=== PATIENT | female | born 1955 | race Caucasian/White ===

== ENCOUNTER → 2020-03-27 16:10 | Outpatient (BNVA) | payer OTHER, SELFPAY | PROVIDERS: PCP Internal Medicine; Visit Provider Surgery | DX: Z76.89 Persons encountering health services in other specified circumstances (principal) ==

== ENCOUNTER 2020-04-16 09:32 | Outpatient (REF) | payer OTHER, SELFPAY ==
[2020-04-16 10:11] LABS: COVID-19 Test Negative (Negative)
== END 2020-04-16 09:33 | disposition home or self-care (01) ==
LOC: HO.EMPCOV 09:32
PROVIDERS: Visit Provider Internal Medicine
DX: Z20.828 Contact with and (suspected) exposure to other viral communicable diseases (principal)
CPT/HCPCS: 87635; C9803

== ENCOUNTER 2020-06-11 11:11 | Outpatient (REF) | payer OTHER, SELFPAY ==
[2020-06-11 11:30] LABS: COVID-19 Test Negative (Negative); IDNOW Serial# 55D5AD1C
== END 2020-06-11 11:12 | disposition home or self-care (01) ==
LOC: HO.EMPCOV 11:11
PROVIDERS: Visit Provider Internal Medicine
DX: Z20.822 Contact with and (suspected) exposure to COVID-19 (principal)
CPT/HCPCS: 36415; 87635; C9803

== ENCOUNTER 2020-06-18 08:37 | Outpatient (REF) | payer OTHER, SELFPAY ==
[2020-06-18 09:04] LABS: COVID-19 Test Negative (Negative)
== END 2020-06-18 08:38 | disposition home or self-care (01) ==
LOC: HO.EMPCOV 08:37
PROVIDERS: Visit Provider Internal Medicine
DX: Z20.822 Contact with and (suspected) exposure to COVID-19 (principal)
CPT/HCPCS: 36415; 87635; C9803

== ENCOUNTER 2020-09-04 12:31 | Outpatient (REF) | payer OTHER, SELFPAY ==
--- NOTE | ~2020-09-04 | XR_ITS ---
EXAMINATION: XR CHEST CLINICAL INFORMATION: Fatigue. Tobacco use. COMPARISON: None TECHNIQUE: 2 views of the chest were obtained. FINDINGS: Hyperexpanded lungs. No consolidation, edema, or effusion. No pneumothorax. The cardiomediastinal silhouette is normal in size with a calcified aorta. Left axillary surgical clips. No acute osseous abnormality. XR/XR chest 2V IMPRESSION: Hyperexpanded, clear lungs.
--- NOTE | ~2020-09-04 | XR_ITS ---
EXAMINATION: XR SINUSES CLINICAL INFORMATION: Fatigue. Sinus headache. COMPARISON: None TECHNIQUE: 4 views of the sinuses were obtained. FINDINGS: Paranasal sinuses are well aerated and clear. No opacification or air-fluid level to suggest sinusitis is seen. Bony structures are unremarkable. XR/XR sinus min 3V IMPRESSION: Clear paranasal sinuses.
[2020-09-04 13:48] LABS: MANUAL DIFF FLAG NO
[2020-09-04 13:55] LABS: Basophils Absolute Auto 0.1 X10*3/uL (0.0-0.2); Basophils Percent Auto 0.6 % (0-2); Eosinophils Absolute Auto 0.3 X10*3/uL (0.0-0.4); Eosinophils Percent Auto 3.2 % (0-4); Hematocrit 45.2 % (37-47); Hemoglobin 14.7 g/dl (12.0-16.0); Imm Gran Abs Auto 0.05 X10*3/uL (0.00-0.03); Imm Gran Pct Auto 0.6 % (0.0-0.4); Lymphocytes Absolute Auto 2.1 X10*3/uL (1.2-4.9); Lymphocytes Percent Auto 24.8 % (20-40); Mean Corpuscular HGB Conc 32.5 g/dl (31.0-35.0); Mean Corpuscular Hemoglobin 32.7 pg (27.0-33.0); Mean Corpuscular Volume 100.4 fL (80-98); Mean Platelet Volume 10.2 fL (9.4-12.3); Monocytes Absolute Auto 0.7 X10*3/uL (0.1-1.2); Monocytes Percent Auto 8.8 % (2-11); Neutrophils Absolute Auto 5.2 X10*3/uL (2.0-8.3); Platelet Count 306 X10*3/uL (160-400); Red Cell Distribution Width 12.5 % (11.0-16.0); White Blood Count 8.3 X10*3/uL (4.8-10.8)
[2020-09-04 14:16] LABS: Alanine Aminotransferase 17 U/L (0-31); Albumin Level 4.2 g/dL (3.5-5.0); Alkaline Phosphatase 79 U/L (39-117); Anion Gap 14 (12-20); Aspartate Amino Transferase 16 U/L (5-31); Bilirubin Total 0.4 mg/dL (0.0-1.0); Blood Urea Nitrogen 13 mg/dL (9-16); C Reactive Protein 0.23 mg/dL (< or = 0.50); Calcium 9.9 mg/dL (8.4-10.2); Carbon Dioxide 29 mmol/L (22-29); Chloride 102 mmol/L (96-108); Estimated Glomerular Filt Rate > 60; Glucose Random 115 mg/dL (60-115); Sodium 141 mmol/L (135-145); Total Protein 6.9 g/dL (6.5-8.0)
[2020-09-04 14:35] LABS: Thyroid Stimulating Hormone 0.74 uIU/mL (0.32-4.0)
[2020-09-04 14:46] LABS: Vitamin B12 428 pg/mL (200-900)
== END 2020-09-04 12:32 | disposition home or self-care (01) ==
LOC: HO.XRAY 12:31
PROVIDERS: PCP Internal Medicine; Visit Provider Internal Medicine
DX: R53.83 Other fatigue (principal); G44.89 Other headache syndrome; Z72.0 Tobacco use
CPT/HCPCS: 36415; 70220; 71046; 80053; 82607; 84443; 85025; 86140

== ENCOUNTER 2020-09-12 15:25 | Outpatient (REF) | payer OTHER, SELFPAY ==
[2020-09-12 16:00] LABS: Glucose Urine UA NEG (NEG); Leukocyte Esterase Urine NEG (NEG); Nitrite Urine NEG (NEG); Specific Gravity - Urine 1.025 (1.005-1.025); Urine Blood NEG (NEG); Urine Ketones 5 MG/DL (NEG); Urine Protein TRACE MG/DL (NEG-TRACE)
[2020-09-12 16:02] LABS: Appearance Urine CLEAR; Color Urine YELLOW
== END 2020-09-12 15:26 | disposition home or self-care (01) ==
LOC: HO.LAB 15:25
PROVIDERS: PCP Internal Medicine; Visit Provider Internal Medicine
DX: R30.0 Dysuria (principal)
CPT/HCPCS: 81003; 87086

== ENCOUNTER 2020-10-01 11:27 | Outpatient (REF) | payer OTHER, SELFPAY ==
--- NOTE | ~2020-10-01 | CT_ITS ---
EXAMINATION: CT HEAD WITHOUT CONTRAST CLINICAL INFORMATION: Mental status change, dizziness and fatigue COMPARISON: None TECHNIQUE: Contiguous axial imaging was performed from the skull base to vertex without intravenous administration of contrast. This CT examination was performed using dose optimization techniques as appropriate, variously including the following: *Automated exposure control *Adjustment of mA and/or kV according to patient size (this includes techniques or standardized protocols for targeted exams where dose is matched to indication/reason for exam; i.e. extremities or head) *Use of iterative reconstruction technique DLP: 7-1 mGy-cm FINDINGS: There is no evidence of acute intracranial hemorrhage or territorial infarction. No abnormal mass effect or midline shift is seen. Virk to white matter differentiation is well preserved. No extra-axial fluid collections are identified. The ventricles are normal in size. There is no abnormal attenuation within the brain parenchyma. The osseous structures and soft tissues are normal. The mastoid air cells and visualized portions of the paranasal sinuses are well aerated. CT/CT head/brain wo con IMPRESSION: Unremarkable exam.
== END 2020-10-01 11:28 | disposition home or self-care (01) ==
LOC: HO.CT 11:27
PROVIDERS: Visit Provider Internal Medicine
DX: R53.83 Other fatigue (principal); R42 Dizziness and giddiness
CPT/HCPCS: 70450

== ENCOUNTER 2020-10-08 08:15 | Outpatient (REF) | payer OTHER, SELFPAY ==
[2020-10-08 10:18] LABS: MANUAL DIFF FLAG NO
[2020-10-08 10:40] LABS: Basophils Percent Auto 0.4 % (0-2); Eosinophils Absolute Auto 0.1 X10*3/uL (0.0-0.4); Eosinophils Percent Auto 1.1 % (0-4); Hematocrit 46.1 % (37-47); Hemoglobin 14.9 g/dl (12.0-16.0); Imm Gran Abs Auto 0.07 X10*3/uL (0.00-0.03); Imm Gran Pct Auto 0.7 % (0.0-0.4); Lymphocytes Absolute Auto 1.2 X10*3/uL (1.2-4.9); Lymphocytes Percent Auto 11.4 % (20-40); Mean Corpuscular HGB Conc 32.3 g/dl (31.0-35.0); Mean Corpuscular Hemoglobin 32.2 pg (27.0-33.0); Mean Corpuscular Volume 99.6 fL (80-98); Mean Platelet Volume 10.4 fL (9.4-12.3); Monocytes Absolute Auto 0.9 X10*3/uL (0.1-1.2); Monocytes Percent Auto 8.4 % (2-11); Neutrophils Absolute Auto 8.4 X10*3/uL (2.0-8.3); Platelet Count 303 X10*3/uL (160-400); Red Blood Count 4.63 X10*6/uL (4.20-5.50); Red Cell Distribution Width 12.2 % (11.0-16.0); White Blood Count 10.7 X10*3/uL (4.8-10.8)
[2020-10-08 10:59] LABS: Alanine Aminotransferase 17 U/L (0-31); Albumin Level 4.4 g/dL (3.5-5.0); Alkaline Phosphatase 73 U/L (39-117); Anion Gap 13 (12-20); Aspartate Amino Transferase 15 U/L (5-31); Bilirubin Total 0.2 mg/dL (0.0-1.0); Blood Urea Nitrogen 13 mg/dL (9-16); Calcium 10.5 mg/dL (8.4-10.2); Carbon Dioxide 29 mmol/L (22-29); Chloride 101 mmol/L (96-108); Estimated Glomerular Filt Rate > 60; Glucose Random 110 mg/dL (60-115); Potassium 3.8 mmol/L (3.3-5.1); Sodium 139 mmol/L (135-145); Total Protein 7.1 g/dL (6.5-8.0)
== END 2020-10-08 08:16 | disposition home or self-care (01) ==
LOC: HO.LAB 08:15
PROVIDERS: PCP Internal Medicine; Visit Provider Internal Medicine
DX: R19.7 Diarrhea, unspecified (principal); R10.9 Unspecified abdominal pain
CPT/HCPCS: 36415; 80053; 85025

== ENCOUNTER 2020-10-15 10:33 | Outpatient (REF) | payer OTHER, SELFPAY ==
[2020-10-17 20:56] LABS: HPV mRNA E6/E7 rflx Not Detected (Not Detected)
== END 2020-10-15 10:34 | disposition home or self-care (01) ==
LOC: HO.LAB 10:33
PROVIDERS: PCP Internal Medicine; Visit Provider Advanced Practice Midwife
DX: Z01.419 Encounter for gynecological examination (general) (routine) without abnormal findings (principal); A63.0 Anogenital (venereal) warts; R35.0 Frequency of micturition; F17.210 Nicotine dependence, cigarettes, uncomplicated; Z85.3 Personal history of malignant neoplasm of breast; Z78.0 Asymptomatic menopausal state
CPT/HCPCS: 87624; 88142

== ENCOUNTER → 2020-10-31 12:08 | Outpatient (BNVA) | payer OTHER, SELFPAY | PROVIDERS: PCP Internal Medicine; Visit Provider Advanced Practice Midwife ==

== ENCOUNTER → 2020-11-07 14:31 | Outpatient (BNVA) | payer OTHER, SELFPAY | PROVIDERS: PCP Internal Medicine; Visit Provider Urology ==

== ENCOUNTER 2020-12-16 15:58 | Outpatient (REF) | payer OTHER, SELFPAY ==
--- NOTE | ~2020-12-16 | US_ITS ---
EXAMINATION: US RETROPERITONEAL LIMITED (RENAL ONLY) CLINICAL INFORMATION: Calculus of kidney. COMPARISON: CT abdomen and pelvis with intravenous contrast only dated 02/12/2020. TECHNIQUE: Real-time imaging of the kidneys. FINDINGS: RIGHT KIDNEY: 10.6 x 4.1 x 5.7 cm (SAG x AP x TRV). The kidney is normal in size, contour, and echogenicity. Renal cortical thickness is normal. No renal calculi or hydronephrosis. There is an anechoic cyst in [id number]-[id number] pole measuring 1.1 x 0.7 x 1.3 cm. There are multiple echogenic foci in the cortex. LEFT KIDNEY: 10.4 x 5.8 x 5.1 cm (SAG x AP x TRV). The kidney is normal in size, contour, and echogenicity. Renal cortical thickness is normal. No hydronephrosis. There is an anechoic cyst lower pole measuring 1.5 x 1.5 x 1.7 cm. Several nonobstructing echogenic foci are seen in the renal cortex. US/US renal BI IMPRESSION: 1. Bilateral renal cysts. 2. Nonobstructive multiple echogenic foci in the cortex. 3. There is no hydronephrosis.
== END 2020-12-16 15:59 | disposition home or self-care (01) ==
LOC: HO.US 15:58
PROVIDERS: Visit Provider Urology
DX: N20.0 Calculus of kidney (principal)
CPT/HCPCS: 76775

== ENCOUNTER → 2021-01-23 12:00 | Outpatient (BNVA) | payer OTHER, SELFPAY | PROVIDERS: PCP Internal Medicine ==

== ENCOUNTER 2021-02-02 10:33 | Outpatient (REF) | payer OTHER, SELFPAY ==
--- NOTE | ~2021-02-02 | MM_ITS ---
EXAMINATION: MM SCREENING DIGITAL BREAST TOMOSYNTHESIS, RIGHT CLINICAL INFORMATION: Left mastectomy for breast cancer, 2005. Right breast implant 2004. Screening, asymptomatic. COMPARISON: Mammography: 02/01/2020, 01/26/2019, 12/05/2017 TECHNIQUE: Digital mammography is performed in craniocaudal and mediolateral oblique views along with computer-aided detection (CAD). Digital breast tomosynthesis is performed in implant-displaced craniocaudal and implant-displaced mediolateral oblique views along with computer-aided detection (CAD). Synthesized 2D images are generated from the tomosynthesis. FINDINGS: There are scattered areas of fibroglandular density (ACR BI-RADS breast composition Category b). Right breast implant has smooth margins, similar to prior studies. Right breast parenchymal pattern is similar to prior exams. There is no developing density, interval mass, architectural abnormality. No abnormal calcifications. The skin contours are smooth. No significant changes. MM/MM tomosynthesis screen imp RT IMPRESSION: No mammographic evidence of malignancy. ASSESSMENT: BI-RADS 1: Negative RECOMMENDATION: Routine annual mammography screening. This patient's information was entered into a reminder system with a target due date for their next mammogram.
--- NOTE | ~2021-02-02 | MM_ITS ---
EXAMINATION: BONE DENSITOMETRY CLINICAL INDICATION: Asymptomatic menopausal state. COMPARISON: Baseline BD dated 07/16/2016. TECHNIQUE: Using a INDOM DXA System (software version: 13.1) manufactured by [employer], dual-energy x-ray absorptiometry was performed of the lumbar spine and left hip. The images are of good technical quality. Summary results are attached. FINDINGS: AP SPINE L1-L4: Current: BMD 0.989 g/cm2, Z-score 0.1, T-score -1.6, osteopenia, 3.7% decrease from baseline (<5% change is not significant). Baseline: BMD 1.027 g/cm2. LEFT FEMUR, NECK: Current: BMD 0.715 g/cm2, Z-score -0.8, T-score -2.3, osteopenia. Baseline: BMD 0.758 g/cm2. LEFT FEMUR, TOTAL: Current: BMD 0.744 g/cm2, Z-score -0.8, T-score -2.1, osteopenia, 1.7% decrease from baseline (<5% change is not significant). Baseline: BMD 0.757 g/cm2. IDENTIFIED RISK FACTORS: Early menopause, secondary osteoporosis, tobacco use (current smoker), hysterectomy. HISTORY OF FRACTURE: None listed. MEDICATIONS: Multivitamin. MM/XR DEXA axial skeleton IMPRESSION: 1. DIAGNOSIS: Osteopenia based on the lowest T-score value of -2.3 in the femoral neck applying World Health Organization criteria. 2. 10-YEAR FRACTURE RISK PREDICTION, FRAX: Major osteoporotic fracture (clinical spine, forearm, hip or shoulder) 12.1%. Hip fracture 3.6%. 3. Treatment Recommendations: NOF guidelines recommend consideration for treatment in postmenopausal women and men age 50 and older presenting with the following: -A hip or vertebral (clinical or morphometric) fracture. -T-score less than or equal to -2.5 at the femoral neck or spine after appropriate evaluation to exclude secondary causes. -Low bone mass at the hip or spine and a 10-year fracture probability by FRAX of greater than or equal to 3% for hip fracture or greater than or equal to 20% for major osteoporotic fracture based on the [place] adapted WHO algorithm. 4. Other Recommendations: All treatment decisions require clinical judgment and consideration of individual patient factors, including patient preferences, comorbidities, previous drug use, risk factors not captured in the FRAX model (e.g. frailty, falls, vitamin D deficiency, increased bone turnover, interval significant decline in bone density) and possible under or overestimation of fracture risk by FRAX. Additional medical evaluation for secondary cause of low bone mineral density may be appropriate. FUTURE SCAN RECOMMENDATION: People with diagnosed cases of osteoporosis or at high risk for fracture should have regular bone mineral density tests. For patients eligible for Medicare, routine testing is allowed once every 2 years. The testing frequency can be increased to one year for patients who have rapidly progressing disease, those who are receiving or discontinuing medical therapy to restore bone mass, or have additional risk factors.
== END 2021-02-02 10:34 | disposition home or self-care (01) ==
LOC: HO.MAMMO 10:33
PROVIDERS: Visit Provider Internal Medicine
DX: Z12.31 Encounter for screening mammogram for malignant neoplasm of breast (principal); Z13.820 Encounter for screening for osteoporosis; M85.80 Other specified disorders of bone density and structure, unspecified site; Z78.0 Asymptomatic menopausal state; Z72.0 Tobacco use; Z79.899 Other long term (current) drug therapy; Z98.890 Other specified postprocedural states
CPT/HCPCS: 77063; 77067; 77080

== ENCOUNTER → 2021-02-10 14:45 | Outpatient (BNVA) | payer OTHER, SELFPAY | PROVIDERS: PCP Internal Medicine; Visit Provider Advanced Practice Midwife ==

== ENCOUNTER 2021-04-27 08:08 | Outpatient (REF) | payer OTHER, SELFPAY ==
[2021-04-27 08:51] LABS: Binax Internal Control QC Valid; Binax Lot number: 1911; Binax Now Covid-19 Ag Negative (Negative)
== END 2021-04-27 08:09 | disposition home or self-care (01) ==
LOC: HO.LAB 08:08
PROVIDERS: PCP Internal Medicine; Visit Provider Internal Medicine
DX: Z20.822 Contact with and (suspected) exposure to COVID-19 (principal)
CPT/HCPCS: 36415; C9803

== ENCOUNTER 2021-05-27 11:03 | Outpatient (REF) | payer OTHER, SELFPAY ==
--- NOTE | ~2021-05-27 | MR_ITS ---
EXAMINATION: MR LUMBAR SPINE WITHOUT CONTRAST CLINICAL INFORMATION: Low back pain. Left lower extremity pain, numbness, and weakness. COMPARISON: CT scan abdomen and pelvis 02/12/2020. TECHNIQUE: MRI of the lumbar spine was obtained using routine sequences without contrast. FINDINGS: There is spinal scoliosis with a leftward convex curvature centered at L3-L4. Slight left lateral subluxation of L4 on L5. Alignment is otherwise normal in the sagittal dimension. Vertebral heights are preserved. No acute bone marrow signal changes. There is slight loss of intervertebral disc height and T2 signal intensity at multiple levels related to disc degeneration. The tip of the conus medullaris is located at T12. No mass effect on the conus. Visualized distal cord signal intensity is normal. At T12-L1 the annular contour is normal. No canal or neuroforaminal compromise. At L1-L2 the annular contour is normal. No canal or neuroforaminal compromise. At L2-L3 there is a slightly bulging disc. No canal stenosis. No mass effect on the traversing or foraminal nerve roots. At L3-L4 there is a slightly bulging disc. No canal stenosis. No mass effect on the traversing or foraminal nerve roots. At L4-L5 there is a left subarticular protrusion superimposed upon a bulging disc. Bilateral facet degenerative change. Mild canal stenosis. There is asymmetric narrowing of the left subarticular zone with compression of left traversing L5 nerve roots. No foraminal nerve root compression. At L5-S1 the annular contour is normal. Bilateral facet degenerative change. No canal stenosis. No mass effect on the traversing or foraminal nerve roots. Limited visualization of the retroperitoneal anatomy reveals a few well marginated benign-appearing cystic lesions within both kidneys. Psoas and paraspinal muscle groups are symmetric. MR/MR lumbar spine wo con IMPRESSION: There is multilevel degenerative spondylosis primarily involving the mid to lower lumbar. Slight left lateral subluxation of L4 on L5. A left subarticular protrusion superimposed upon a bulging disc at L4-L5 causes mild canal stenosis and asymmetric compression of the left traversing L5 nerve roots. Otherwise no substantial mass effect on the traversing or foraminal nerve roots elsewhere within the lumbar spine.
== END 2021-05-27 11:04 | disposition home or self-care (01) ==
LOC: HO.MRI 11:03
PROVIDERS: PCP Internal Medicine; Visit Provider Internal Medicine
DX: M54.42 Lumbago with sciatica, left side (principal); M79.662 Pain in left lower leg; R20.0 Anesthesia of skin
CPT/HCPCS: 72148

== ENCOUNTER 2021-07-02 16:00 | Outpatient (RCR) | payer OTHER, SELFPAY ==
--- NOTE | 2021-04-21 17:57 | MHC.PT.EP ---
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 She presents today with current impairments in pain, decreased lumbar ROM, decreased strength, decreased core stab, impaired posture and impaired body mechanics. She is TTP with reproduction of radiating symptoms throughout L piriformis and glutes. She is limited functionally by bending, standing, and prolonged positions. She is an excellent candidate for skilled PT services to address current impairments in order to facilitate return to PLOF. She will be seen 2x/week for 4 weeks and will be reassessed at that time. Frequency and Duration: The patient will be seen 2x/week for 4 weeks Short Term Goals: Pt will improve L glute strength to at least 4-/5 Pt will have centralization of symptoms Pt will demonstrate improvements awareness of proper posture and body mechanics [employer] Goals: Pt will tolerate standing > 1 hour without pain to assist with standing functional tasks Pt will report pain < 2 / 10 after functional mobility Pt will demonstrate improvements in functional mobility as evidenced by statistically significant improvement in LEFI outcome measure Treatment Plan: Modalities to reduce pain, spasms and effusion. Manual therapy to restore motion and function. Therapeutic exercise to improve strength and flexibility. Neuromuscular re-education for posture and balance. Therapeutic activities to return to functional activities of daily living. Electronically signed by: Stephanie Lee, PT, DPT Please sign and return to therapist. Thank you for your referral.
--- NOTE | 2021-07-06 11:37 | MHC.PT.DC ---
[facility] [place] Office [place] Office [place] Office [address] Maria Del Rosario Garcia [address] [phone] F: [phone] F: [phone] F: [phone] F: [phone] Physical Therapy Discharge Report Diagnosis: Sciatica, L side Date of Surgery: N/A Date of Evaluation: 04/21/21 Date of Discharge: 07/06/21 Treatments to Date: 15 Cancellations to Date: 3 No Shows to Date: 1 Discharge Status: Achieved Goals Improved Function Independent with HEP Discharge Summary: Pt was seen for skilled PT from 04/21/21-07/02/21. Her last attended appointment was 07/06/21. She made good progress since SOC and met her STGs and most of her LTGs. She had centralization of symptoms throughout PT sessions with extension based exercises. She occasionally requires cues for proper body mechanics and posture but overall has demonstrated improvements since SOC. Pt is being D/C from skilled PT as she has reached functional plateau and is anticipating low back surgery in July. She is I with her HEP. Pt reports no further questions or concerns for PT at last attended visit. Electronically signed by: Stephanie Lee, PT, DPT Please sign and return to therapist. Thank you for your referral.
== END 2021-07-06 11:37 | disposition home or self-care (01) ==
LOC: HO.PT 16:00
PROVIDERS: PCP Internal Medicine; Visit Provider Internal Medicine
DX: M54.32 Sciatica, left side (principal)
CPT/HCPCS: 97110; 97140; 97161

== ENCOUNTER 2022-02-09 08:40 | Outpatient (REF) | payer OTHER, SELFPAY ==
--- NOTE | ~2022-02-09 | MM_ITS ---
EXAMINATION: MM SCREENING DIGITAL BREAST TOMOSYNTHESIS, RIGHT CLINICAL INFORMATION: Remote left mastectomy for breast cancer, 2005. Right breast implant, 2005. Screening. COMPARISON: Mammography: 02/02/2021, 02/01/2020, 01/26/2019 TECHNIQUE: Digital mammography is performed in craniocaudal and mediolateral oblique views along with computer-aided detection (CAD). Digital breast tomosynthesis is performed in implant-displaced craniocaudal and implant-displaced mediolateral oblique views along with computer-aided detection (CAD). Synthesized 2D images are generated from the tomosynthesis. FINDINGS: There are scattered areas of fibroglandular density (ACR BI-RADS breast composition Category b). There are no significant masses, abnormal calcifications, or other abnormalities. Parenchymal pattern is similar to prior studies. There is no developing density or architectural abnormality. Right implant contours are smooth and similar to prior exam. The axilla and skin contours are unremarkable. No significant changes. MM/MM tomosynthesis screen imp RT IMPRESSION: No mammographic evidence of malignancy. ASSESSMENT: BI-RADS 1: Negative RECOMMENDATION: Routine annual mammography screening. This patient's information was entered into a reminder system with a target due date for their next mammogram.
--- NOTE | 2022-03-19 09:29 | MHC.HEMONCMA ---
Called doctor Cori Bacon office in dermatology to schedule appt for pt but office stated we needed to send a referral for pt for them to call her directly to schedule appt. Left msg informing pt of provider's office number to give them a call.
== END 2022-02-09 08:41 | disposition home or self-care (01) ==
LOC: HO.MAMMO 08:40
PROVIDERS: PCP Internal Medicine; Visit Provider Internal Medicine
DX: Z12.31 Encounter for screening mammogram for malignant neoplasm of breast (principal)
CPT/HCPCS: 77063; 77067

== ENCOUNTER → 2022-04-28 10:54 | Outpatient (BNVA) | payer OTHER, SELFPAY | PROVIDERS: PCP Internal Medicine; Visit Provider Surgery | DX: L72.3 Sebaceous cyst (principal); L08.9 Local infection of the skin and subcutaneous tissue, unspecified | CPT/HCPCS: 10061 ==

== ENCOUNTER 2022-09-03 06:55 | Outpatient (REF) | payer OTHER, SELFPAY ==
[2022-09-03 07:08] LABS: MANUAL DIFF FLAG NO
[2022-09-03 07:34] LABS: Basophils Absolute Auto 0.1 X10*3/uL (0.0-0.2); Basophils Percent Auto 0.8 % (0-2); Eosinophils Absolute Auto 0.3 X10*3/uL (0.0-0.4); Hematocrit 48.1 % (37.0-47.0); Hemoglobin 15.4 g/dl (12.0-16.0); Imm Gran Abs Auto 0.04 X10*3/uL (0.00-0.03); Imm Gran Pct Auto 0.5 % (0.0-0.4); Lymphocytes Absolute Auto 1.7 X10*3/uL (1.2-4.9); Lymphocytes Percent Auto 21.5 % (20-40); Mean Corpuscular Hemoglobin 32.2 pg (27.0-33.0); Mean Corpuscular Volume 100.4 fL (80.0-98.0); Mean Platelet Volume 9.6 fL (9.4-12.3); Monocytes Absolute Auto 0.7 X10*3/uL (0.1-1.2); Monocytes Percent Auto 8.6 % (2-11); Neutrophils Absolute Auto 5.1 x10*3/uL (2.0-8.3); Neutrophils Percent Auto 64.6 % (45-73); Platelet Count 281 X10*3/uL (160-400); Red Blood Count 4.79 X10*6/uL (4.20-5.50); Red Cell Distribution Width 12.6 % (11.0-16.0); White Blood Count 7.8 X10*3/uL (4.8-10.8)
[2022-09-03 08:36] LABS: Alanine Aminotransferase 19 U/L (0-31); Albumin Level 4.1 g/dL (3.5-5.0); Alkaline Phosphatase 83 U/L (39-117); Anion Gap 10 (12-20); Aspartate Amino Transferase 17 U/L (5-31); Bilirubin Total 0.5 mg/dL (0.0-1.0); Blood Urea Nitrogen 13 mg/dL (9-16); Calcium 9.3 mg/dL (8.4-10.2); Carbon Dioxide 30 mmol/L (22-29); Chloride 104 mmol/L (96-108); Cholesterol 234 mg/dL; Estimated Glomerular Filt Rate > 60; Glucose Fasting 91 mg/dL (60-99); HDL Cholesterol 66 mg/dL; LDL Cholesterol Calculated 148 mg/dl; Potassium 4.1 mmol/L (3.3-5.1); Sodium 140 mmol/L (135-145); Total Protein 6.4 g/dL (6.5-8.0); Triglycerides 100 mg/dL
[2022-09-03 08:40] LABS: Vitamin D 25-OH Total 55.2 ng/mL (>30)
== END 2022-09-03 06:56 | disposition home or self-care (01) ==
LOC: HO.LAB 06:55
PROVIDERS: PCP Internal Medicine; Visit Provider Internal Medicine
DX: Z00.00 Encounter for general adult medical examination without abnormal findings (principal); E78.00 Pure hypercholesterolemia, unspecified; M85.80 Other specified disorders of bone density and structure, unspecified site
CPT/HCPCS: 36415; 80053; 80061; 82306; 85025

== ENCOUNTER → 2022-10-06 07:59 | Outpatient (BNVA) | payer OTHER, SELFPAY | PROVIDERS: PCP Internal Medicine; Visit Provider Advanced Practice Midwife ==

== ENCOUNTER 2023-01-27 13:23 | Outpatient (AMB) | payer OTHER, SELFPAY ==
[2023-01-27 13:29] VITALS: BP 116/68; PULSE 96; O2SAT 97; BMI 24.6
--- NOTE | 2023-01-27 13:29 | A.OFFVIS_ITS ---
Intake Vital Signs 01/27/23 13:29 Height 5 ft 4.5 in Weight 145 lb 8.081 oz BMI 24.6 BP 116/68 Blood Pressure Location Lt brachial Position Sitting Pulse 96 Pulse Source Pulse Oximeter Pulse Oximetry (%) 97 Oxygen Delivery Method Room Air Intake Visit Reasons: cough Allergies amoxicillin [AMOXICILLIN] Allergy (Severe, Verified 10/06/22 08:03) HIVES Sulfa (Sulfonamide Antibiotics) [SULFA (SULFONAMIDE ANTIBIOTICS)] Allergy (Severe, Verified 10/06/22 08:03) HIVES,SWELLING ENVIROMENTAL Allergy (Mild, Uncoded 04/28/22 11:02) NASAL CONGESTION HPI HPI Comments History of Present Illness Details The pain here for a pulmonary evaluation. The patient is a 67 year woman with a known history of tobacco dependency in addition to breast cancer x2 status post surgery radiation and chemo. She has been cancer free now for c lose to 20 years. The patient has been complaining of worsening cough. Usually is productive in nature typically in the morning. Moderate severity. She does have significant allergies and she attributes the cough primarily due to her significant postnasal drip. She has tried multiple allergy medications with no significant improvement. The patient has not had any recent allergy testing. She did have a chest x-ray back in 2020 personally by me demonstrating some degree of hyperinflation. The patient has not had any more imaging studies and she has not had any recent pulmonary function studies to review. Unfortunately she is still smoking. She is wondering about quitting specially in the winter months because she does not want to go outside in the cold weather. She was able to quit before with the help of nicotine patches and also quit cold turkey. She recently was placed on antidepressive agents so therefore Chantix may be problematic. In addition to that she has had a bad reaction to Wellbutrin. On examination she definitely has significant nasal congestion and inflammation of the turbinates. Patient also has evidence of coarse breath sounds at the right base suggesting some degree of chest congestion which is asymmetric from the left hemithorax. Therefore would be reasonable to treat her for lower respiratory infection. [facility] Medical History (Updated 01/27/23 @ 22:47 by Carlos Manuel Grey MD) Chronic allergic rhinitis Chronic bronchitis Chronic cough Basal cell carcinoma GERD (gastroesophageal reflux disease) Infected sebaceous cyst Smoking Osteopenia Diverticulitis Depression History of left breast cancer Loco's esophagus Surgical History History of back surgery Hx of wisdom tooth extraction History of bladder surgery H/O rotator cuff surgery History of hysterectomy History of lumpectomy of left breast Hx of left mastectomy Family History Paternal Grandmother Breast cancer Social History Alcohol intake: current Alcohol intake frequency: 0-2 drinks per day Patient Tobacco Use Status: Current everyday Tobacco user Cigarette Packs Per Day: 0.75 Sexual orientation: Straight/Heterosexual Gender identity: Female Review of Systems Const Denies chills and Denies fever(s) ENT Reports nasal congestion, Reports nasal discharge, Reports nasal obstruction and Reports post nasal drip Card Denies chest pain, Denies dyspnea and Denies dyspnea on exertion Resp Reports chest congestion, Denies cough, Denies hemoptysis, Denies dyspnea and Denies dyspnea on exertion GI Denies abdominal pain Denies hematuria Musc Denies back pain and Denies limited range of motion Skin/Breast Denies rash Neuro Denies focal weakness and Denies convulsions Psych Denies depression and Denies mood swings Endo Denies flushing Dioni/Lymph Denies easy bruising and Denies lymphadenopathy Aller/Immun Reports seasonal rhinorrhea Physical Exam Vital Signs: Last Vital Signs Pulse 96 01/27/23 13:29 BP 116/68 01/27/23 13:29 Pulse Ox 97 01/27/23 13:29 Oxygen Delivery Method Room Air 01/27/23 13:29 BMI result Body Mass Index 24.6 Const General: cooperative, healthy appearing, no acute distress, well developed and alert Orientation/consciousness: patient oriented x3 HEENT Head: Yes normal to inspection General nose exam: Abnormal mucous membranes and turbinates present erythematous Eyes General: appearance normal, both eyes and all related structures Neck Neck: Yes normal visual inspection Chest Other: bilateral implants and scaring Chest palpation & inspection: normal inspection of the chest Resp Effort & Inspection: normal respiratory effort Cardio Rate: regular rate Rhythm: regular rhythm Heart sounds: S1 normal heart sound present and S2 normal heart sound present GI Palpation (GI): Soft to palpation (to palpation) Other: sebaceous glands in labia fold;normal Skin General skin exam: no rashes or lesions noted Neuro General: patient oriented x3 Cognition (Neuro): normal cognition Extrem General: Yes no clubbing, cyanosis or edema Psych Attitude: cooperative Thought process: Normal thought process present Thought content: Normal thought content present Immunizations pneumoc 20-supa conj-dip cr(PF) 0.5 mL IM syringe Performing Provider: Carlos Manuel Grey MD Performing Location: [facility] Administered by: Rosa Nunez LPN on 01/27/23 14:07 Dose Route Admin Location Dispensed Lot Number Expiration Date NDC Super[employer] 0.5 mL IM Right Deltoid 0.5 mL [id number] 03/22/24 5680-7695-36 [employer] VIS Given Date VIS Provided VIS Publication Date 01/27/23 Single Vaccine 12 Eligibility Eligibility Date Funding Source Not [facility] Eligible 01/27/23 Private Assessment & Plan Assessment & Plan (1) Smoking: Code(s): F17.200 - Nicotine dependence, unspecified, uncomplicated (2) Chronic cough: Code(s): R05.3 - Chronic cough (3) Chronic bronchitis: Code(s): J42 - Unspecified chronic bronchitis (4) Chronic allergic rhinitis: Code(s): J30.9 - Allergic rhinitis, unspecified Orders: Orders Pneumococcal 20 Immunization Today Z23 - Encounter for immunization PFT pulmonary function test Today R05.3 - Chronic cough Referrals Thoracic Surgery Referral F17.200 - Nicotine dependence, unspecified, uncomplicated Medications: New cetirizine (Zyrtec) 10 mg PO DAILY PRN 30 tabs 4RF allergy symptoms fluticasone propionate 50 mcg/actuation 2 sprays intranasal DAILY 16 grams 6RF montelukast (Singulair) 10 mg PO BEDTIME 30 days 30 tabs 11RF J45.909 - Unspecified asthma, uncomplicated azithromycin 500 mg PO DAILY 5 days 5 tabs 0RF Coding Level of Care Code New Pt Level 4 (55229) Diagnoses Smoking F17.200 Chronic cough R05.3 Chronic bronchitis J42 Chronic allergic rhinitis J30.9 Time Spent (min) 40
== END 2023-01-27 14:22 | disposition home or self-care (01) ==
PROVIDERS: PCP Internal Medicine; Visit Provider Hospitalist
DX: F17.200 Nicotine dependence, unspecified, uncomplicated (principal); R05.3 Chronic cough; J42 Unspecified chronic bronchitis; J30.9 Allergic rhinitis, unspecified
CPT/HCPCS: 99204

== ENCOUNTER → 2023-01-27 13:23 | Outpatient (BNVA) | payer OTHER, SELFPAY | PROVIDERS: PCP Internal Medicine; Visit Provider Hospitalist | DX: R05.3 Chronic cough (principal); J42 Unspecified chronic bronchitis; J30.9 Allergic rhinitis, unspecified; F17.210 Nicotine dependence, cigarettes, uncomplicated; Z23 Encounter for immunization | CPT/HCPCS: 90471; 90677 ==

== ENCOUNTER 2023-02-25 10:25 | Outpatient (REF) | payer OTHER, SELFPAY | END 2023-02-25 10:26 | disposition home or self-care (01) | LOC: HO.RESP 10:25 | PROVIDERS: PCP Internal Medicine; Visit Provider Hospitalist | DX: R05.3 Chronic cough (principal) | CPT/HCPCS: 94010; 94727; 94729 ==

== ENCOUNTER → 2023-02-25 11:11 | Outpatient (BNV) | payer OTHER, SELFPAY | PROVIDERS: PCP Internal Medicine; Visit Provider Hospitalist | DX: R05.9 Cough, unspecified (principal) | CPT/HCPCS: 94060; 94727; 94729 ==

== ENCOUNTER 2023-03-09 08:03 | Outpatient (REF) | payer OTHER, SELFPAY ==
--- NOTE | ~2023-03-09 | MM_ITS ---
EXAMINATION: MM SCREENING DIGITAL BREAST TOMOSYNTHESIS, UNILATERAL WITH BREAST IMPLANT CLINICAL INFORMATION: Screening. Asymptomatic. COMPARISON: Mammography: The patient is status post left mastectomy. TECHNIQUE: Digital mammography is performed in craniocaudal and mediolateral oblique views along with computer-aided detection (CAD). Digital breast tomosynthesis is performed in implant-displaced craniocaudal and implant-displaced mediolateral oblique views along with computer-aided detection (CAD). Synthesized 2D images are generated from the tomosynthesis. FINDINGS: The breasts are heterogeneously dense, which may obscure small masses (ACR BI-RADS breast composition Category c). There is a mammographically intact, right retropectoral silicone breast implant. There are no significant masses, abnormal calcifications, or other abnormalities. MM/MM tomosynthesis screen imp RT IMPRESSION: There are no significant changes from prior study. ASSESSMENT: BI-RADS BI-RADS 1 - Negative RECOMMENDATION: Routine annual mammography screening. 1 year F/U This patient's information was entered into a reminder system with a target due date for their next mammogram.
== END 2023-03-09 08:04 | disposition home or self-care (01) ==
LOC: HO.MAMMO 08:03
PROVIDERS: PCP Internal Medicine; Visit Provider Internal Medicine
DX: Z12.31 Encounter for screening mammogram for malignant neoplasm of breast (principal)
CPT/HCPCS: 77063; 77067

== ENCOUNTER → 2023-03-09 08:15 | Outpatient (BNV) | payer OTHER, SELFPAY | PROVIDERS: PCP Internal Medicine; Visit Provider Radiology Diagnostic Radiology | DX: Z12.31 Encounter for screening mammogram for malignant neoplasm of breast (principal) | CPT/HCPCS: 77063; 77067 ==

== ENCOUNTER 2023-05-05 07:30 | Outpatient (REF) | payer OTHER, SELFPAY ==
[2023-05-05 09:57] LABS: Appearance Urine Cloudy; Color Urine Yellow; Glucose Urine UA Negative (Negative); Leukocyte Esterase Urine Negative (Negative); Nitrite Urine Negative (Negative); Specific Gravity - Urine 1.015 (1.005-1.025); Urine Blood Negative (Negative); Urine Ketones Negative (Negative); Urine Protein Negative (Neg-Trace)
== END 2023-05-05 07:31 | disposition home or self-care (01) ==
LOC: HO.LAB 07:30
PROVIDERS: PCP Internal Medicine; Visit Provider Internal Medicine
DX: R30.0 Dysuria (principal)
CPT/HCPCS: 81003; 87086

== ENCOUNTER 2023-05-20 09:26 | Outpatient (AMB) | payer OTHER, SELFPAY ==
--- NOTE | 2023-05-19 20:09 | MHC.OFFVIS ---
Intake Intake Visit Reasons: LDCT SD Allergies amoxicillin [AMOXICILLIN] Allergy (Severe, Verified 10/06/22 08:03) HIVES Sulfa (Sulfonamide Antibiotics) [SULFA (SULFONAMIDE ANTIBIOTICS)] Allergy (Severe, Verified 10/06/22 08:03) HIVES,SWELLING ENVIROMENTAL Allergy (Mild, Uncoded 04/28/22 11:02) NASAL CONGESTION HPI HPI Comments History of Present Illness Details Rachel is a pleasant 67 year old female, current smoker with a 37.5 PYH. Patient has been smoking since age 17 for 50 years at 3/4 ppd. She has quit for 1.5 yrs while enduring radiation/chemo. Admits occasional marijuana use. Denies exposure to chemicals or substances like asbestos. Admits second hand smoke exposure. Denies known family history of lung cancer. Reports history of left breast cancer s/p radiation and lumpectomy 1992 , mastectomy/chemo 2003. Denies chest CT in last year. Reports recent travel outside the [place], [place] 03/2023 Denies testing positive for COVID. Admits receiving COVID Vaccine x 3. Denies fever, chills, chest pain, new cough, hemoptysis or unintentional weight loss. Lung Cancer Screening Questionnaire reviewed with patient by provider. Shared Decision Making Completed. Discussed in detail with patient, the risk versus benefit of LDCT screening. Patient in agreement of proceeding with scan. [facility] Medical History (Updated 03/21/23 @ 13:28 by Brandie Guo PA-C) History of left breast cancer (~1992) Nicotine dependence, cigarettes, uncomplicated Chronic bronchitis Chronic cough Chronic allergic rhinitis Osteopenia (~2016) GERD (gastroesophageal reflux disease) Hepatic steatosis Diverticulitis Loco's esophagus Basal cell carcinoma Depression Surgical History (Updated 03/21/23 @ 13:28 by Brandie Guo PA-C) History of colonoscopy History of esophagogastroduodenoscopy (EGD) History of lumpectomy of left breast (~1992) History of left mastectomy (~2003) History of bilateral breast implants History of hysterectomy (~1997) History of back surgery History of bladder surgery History of rotator cuff surgery History of wisdom tooth extraction Family History Paternal Grandmother Breast cancer Social History Alcohol intake: current Alcohol intake frequency: 0-2 drinks per day Patient Tobacco Use Status: Current everyday Tobacco user Cigarette Packs Per Day: 0.75 Sexual orientation: Straight/Heterosexual Gender identity: Female Assessment & Plan Assessment & Plan (1) Nicotine dependence, cigarettes, uncomplicated: Comment: (current smoker) Code(s): F17.210 - Nicotine dependence, cigarettes, uncomplicated Plan Shared decision-making visit completed today in office. This patient meets criteria for LDCT for lung cancer screening purposes and is asymptomatic. Offered smoking cessation. Patient has been scheduled for a low dose chest CT for screening purposes at [facility]. We discussed how the results will be obtained depending on CT findings. RADS 1 and RADS 2 will receive a letter with results and will follow up for annual LDCT. Patient informed they will be contacted at later date to schedule upcoming LDCT scan. RADS 3 and RADS 4 will receive a telephone call, or an office visit after reviewing case at our Lung Cancer Conference to determine when the next LDCT will be scheduled or further interventions that may be needed. Discussed importance of screening program and compliance with yearly LDCT scan as scheduled. Risks, benefits, and alternatives were discussed in detail and patient agrees to proceed. Risks discussed include but are not limited to: radiation exposure and possibility of additional intervention for benign disease. Benefits include detection of lung cancer at an early stage. A copy of today's visit and LDCT results will be sent to patient's PCP. Incidental findings on LDCT are PCP's responsibility. If there are incidental findings, our office will ensure that PCP office is aware of these findings. All questions were answered and patient is in agreement of plan. Coding Level of Care Code Lung Cancer Screening G0296 Diagnoses Nicotine dependence, cigarettes, uncomplicated F17.210
== END 2023-05-20 09:49 | disposition home or self-care (01) ==
PROVIDERS: PCP Internal Medicine; Visit Provider Nurse Practitioner Family
DX: F17.210 Nicotine dependence, cigarettes, uncomplicated (principal)
CPT/HCPCS: G0296

== ENCOUNTER 2023-05-20 09:52 | Outpatient (REF) | payer OTHER, SELFPAY ==
--- NOTE | ~2023-05-20 | CT_ITS ---
EXAMINATION: CT CHEST SCREENING CLINICAL INFORMATION: Nicotine dependence Current smoker, 50 pacs per year COMPARISON: None available. TECHNIQUE: Multidetector volumetric CT imaging of the chest is performed without contrast using low dose technique. Additional 2D coronal and sagittal reformatted images and axial 3D maximum intensity projection (MIP) images are generated on the CT workstation. This CT examination was performed using dose optimization techniques as appropriate, variously including the following: *Automated exposure control *Adjustment of mA and/or kV according to patient size (this includes techniques or standardized protocols for targeted exams where dose is matched to indication/reason for exam; i.e. extremities or head) *Use of iterative reconstruction technique DLP: 48 mGy-cm FINDINGS: LUNGS: There is mild emphysema and there is right upper lobe 0.7 cm nodule inseparable from the right upper lobe scarring. There is 0.2 cm nodule in the superior segment of the right upper lobe seen on image 220 series 9. Another 0.2 cm subpleural nodule seen in the right lower lobe, seen on image 309 cm 9. Central airways are patent. MEDIASTINUM: Thyroid gland is unremarkable. There is no mediastinal or hilar lymphadenopathy. Thoracic aorta is not aneurysmal. There is no pericardial effusion CORONARY ARTERY CALCIFICATION: Coronary artery calcifications present. PLEURA: There is no pleural effusion. No pleural mass or thickening. AXILLA: No lymphadenopathy. 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 UPPER ABDOMEN: Unremarkable OSSEOUS STRUCTURES: Unremarkable. CT/CT lung screening IMPRESSION: 0.7 cm nodule in the right upper lobe. Six-month follow-up is recommended to establish stability. ASSESSMENT: Lung-RADS category 3: Probably Benign RECOMMENDATION: 6 months follow-up
== END 2023-05-20 09:53 | disposition home or self-care (01) ==
LOC: HO.CT 09:52
PROVIDERS: PCP Internal Medicine; Visit Provider Physician Assistant Medical
DX: Z12.2 Encounter for screening for malignant neoplasm of respiratory organs (principal); F17.210 Nicotine dependence, cigarettes, uncomplicated
CPT/HCPCS: 71271; G0296

== ENCOUNTER 2023-07-04 10:48 | Outpatient (REF) | payer OTHER, SELFPAY ==
[2023-07-04 12:27] LABS: Influenza A PCR NEGATIVE (Negative); Influenza B PCR NEGATIVE (Negative); Resp Syncy Virus RNA Qual PCR NEGATIVE (Negative); SARS COV2 PCR INHOUSE NEGATIVE (Negative)
== END 2023-07-04 10:49 | disposition home or self-care (01) ==
LOC: HO.LNP 10:48
PROVIDERS: Visit Provider Internal Medicine
DX: Z11.52 Encounter for screening for COVID-19 (principal); Z20.822 Contact with and (suspected) exposure to COVID-19; R05.9 Cough, unspecified
CPT/HCPCS: 0241U

== ENCOUNTER 2023-09-09 11:26 | Outpatient (REF) | payer OTHER, SELFPAY ==
--- NOTE | ~2023-09-09 | XR_ITS ---
EXAMINATION: XR SINUSES CLINICAL INFORMATION: Cough, wheezing, sinus pressure. COMPARISON: 09/04/2020. TECHNIQUE: Martinez, Esposito, lateral and 2 submental vertex views of the paranasal sinuses. FINDINGS: The frontal sinuses are patent. There is hazy opacification of the ethmoid sinuses. No gross air-fluid levels appreciated in the bilateral maxillary sinuses. XR/XR sinus min 3V IMPRESSION: Hazy opacification of the bilateral ethmoid sinuses. CT scan of the paranasal sinuses is strongly recommended for further evaluation as this study is much more sensitive for detection of pathology.
== END 2023-09-09 11:27 | disposition home or self-care (01) ==
LOC: HO.XRAY 11:26
PROVIDERS: PCP Internal Medicine; Visit Provider Internal Medicine
DX: R05.9 Cough, unspecified (principal); R06.2 Wheezing; J34.89 Other specified disorders of nose and nasal sinuses
CPT/HCPCS: 70220

== ENCOUNTER 2023-10-06 10:55 | Outpatient (AMB) | payer OTHER, SELFPAY ==
[2023-10-06 11:06] VITALS: PULSE 90; O2SAT 96; BMI 24.6
--- NOTE | 2023-10-06 11:06 | A.OFFVIS_ITS ---
Vital Signs 10/06/23 11:06 Height 5 ft 4.5 in Weight 145 lb 8.081 oz BMI 24.6 Pulse 90 Pulse Source Pulse Oximeter Pulse Oximetry (%) 96 Oxygen Delivery Method Room Air Intake Visit Reasons: productive cough Dialysis Chief Equipment Technician Required: No Allergies amoxicillin [AMOXICILLIN] Allergy (Severe, Verified 10/06/23 11:07) HIVES Sulfa (Sulfonamide Antibiotics) [SULFA (SULFONAMIDE ANTIBIOTICS)] Allergy (Severe, Verified 10/06/23 11:07) HIVES,SWELLING ENVIROMENTAL Allergy (Mild, Uncoded 10/06/23 11:07) NASAL CONGESTION HPI Comments Details: The patient is a 68 year woman with a known history of tobacco dependency in addition to breast cancer x2 status post surgery radiation and chemo. She has been cancer free now for close to 20 years. The patient has been complaining of worsening cough. Usually is productive in nature typically in the morning. Moderate severity. She does have significant allergies and she attributes the cough primarily due to her significant postnasal drip. She has tried multiple allergy medications with no significant improvement. The patient has not had any recent allergy testing. She did have a chest x-ray back in 2020 personally by me demonstrating some degree of hyperinflation. The patient has not had any more imaging studies and she has not had any recent pulmonary function studies to review. Unfortunately she is still smoking. She is wondering about quitting specially in the winter months because she does not want to go outside in the cold weather. She was able to quit before with the help of nicotine patches and also quit cold turkey. She recently was placed on antidepressive agents so therefore Chantix may be problematic. In addition to that she has had a bad reaction to Wellbutrin. On examination she definitely has significant nasal congestion and inflammation of the turbinates. Patient also has evidence of coarse breath sounds at the right base suggesting some degree of chest congestion which is asymmetric from the left hemithorax. Therefore would be reasonable to treat her for lower respiratory infection. 10/06/2023 the patient is here for pulmonary sick visit. He she states that she has been coughing now regularly for the last few months. Moderate severity. Typically worse in the morning. Is able to expectorate some dark phlegm in the morning although she is smoking also drinking coffee. She did try to cut down the smoking although she has had hard time. She has not started the Chantix. She has been concerned about potential adverse effects. Although we did talk about considering a lower dose of Chantix. She is going to think about it. In the meantime the patient continues to complain of cough. We did review her last CT scan of the chest. This is done back in April 2023. Was considered a rads 3. She has the 6-7 mm nodule and requires a CT scan in 6 months. In addition to that they mentioned something about capsulitis of her breast prosthesis. She did have breast cancer in the past in the left side and she does get some irritation. She will follow-up with her transportation sales consultant oncologist regarding that. [facility] Medical History (Updated 10/06/23 @ 21:34 by Carlos Manuel Grey MD) History of left breast cancer (~1992) Nicotine dependence, cigarettes, uncomplicated Chronic bronchitis Chronic cough Chronic allergic rhinitis Osteopenia (~2016) GERD (gastroesophageal reflux disease) Hepatic steatosis Diverticulitis Loco's esophagus Basal cell carcinoma Depression Surgical History (Updated 03/21/23 @ 13:28 by Brandie Guo PA-C) History of colonoscopy History of esophagogastroduodenoscopy (EGD) History of lumpectomy of left breast (~1992) History of left mastectomy (~2003) History of bilateral breast implants History of hysterectomy (~1997) History of back surgery History of bladder surgery History of rotator cuff surgery History of wisdom tooth extraction Family History Paternal Grandmother Breast cancer Social History Alcohol intake: current Alcohol intake frequency: 0-2 drinks per day Patient Tobacco Use Status: Current everyday Tobacco user Cigarette Packs Per Day: 0.75 Sexual orientation: Straight/Heterosexual Gender identity: Female Review of Systems Const Denies chills and Denies fever(s) ENT Reports nasal congestion, Reports nasal discharge, Reports nasal obstruction and Reports post nasal drip Card Denies chest pain, Denies dyspnea and Denies dyspnea on exertion Resp Reports chest congestion, Reports cough, Denies hemoptysis, Denies dyspnea and Denies dyspnea on exertion GI Denies abdominal pain Denies hematuria Musc Denies back pain and Denies limited range of motion Skin/Breast Denies rash Neuro Denies focal weakness and Denies convulsions Psych Denies depression and Denies mood swings Endo Denies flushing Dioni/Lymph Denies easy bruising and Denies lymphadenopathy Aller/Immun Reports seasonal rhinorrhea Physical Exam Vital Signs: Last Vital Signs Pulse 90 10/06/23 11:06 Pulse Ox 96 10/06/23 11:06 Oxygen Delivery Method Room Air 10/06/23 11:06 BMI result Body Mass Index 24.6 Const General: cooperative, healthy appearing, no acute distress, well developed and alert Orientation/consciousness: patient oriented x3 HEENT Head: Yes normal to inspection General nose exam: Abnormal mucous membranes and turbinates present erythematous Eyes General: appearance normal, both eyes and all related structures Neck Neck: Yes normal visual inspection Chest Other: bilateral implants and scaring Chest palpation & inspection: normal inspection of the chest Resp Effort & Inspection: normal respiratory effort Auscultation: wheezes and diminished lung sounds Cardio Rate: regular rate Rhythm: regular rhythm Heart sounds: S1 normal heart sound present and S2 normal heart sound present GI Palpation (GI): Soft to palpation (to palpation) Other: sebaceous glands in labia fold;normal Skin General skin exam: no rashes or lesions noted Neuro General: patient oriented x3 Cognition (Neuro): normal cognition Extrem General: Yes no clubbing, cyanosis or edema Psych Attitude: cooperative Thought process: Normal thought process present Thought content: Normal thought content present Assessment & Plan Assessment & Plan (1) Chronic bronchitis: Code(s): J42 - Unspecified chronic bronchitis Category: Medical Qualifiers: Chronic bronchitis type: mixed simple and mucopurulent Qualified Code(s): J41.8 - Mixed simple and mucopurulent chronic bronchitis (2) Smoking: Code(s): F17.200 - Nicotine dependence, unspecified, uncomplicated Category: Social Hx (3) Chronic cough: Code(s): R05.3 - Chronic cough Category: Medical (4) Chronic allergic rhinitis: Code(s): J30.9 - Allergic rhinitis, unspecified Category: Medical Plan Breo 200 daily SHAILA as needed start Azithromycin MWF Smoking cessation Sputum cx EKG CT chest 10/2023 F/U November 2023 Orders: Orders Sputum Cult + Gram stain Today J42 - Unspecified chronic bronchitis ECG 12 lead EKG Today J44.9 - Chronic obstructive pulmonary disease, unspecified Medications: New benzonatate 200 mg PO BID 30 days PRN 60 caps 0RF cough azithromycin Take 1 tablet on Tuesday/Tuesday/Tuesday 250 mg PO 3XW 28 days 12 tabs 6RF K21.9 - Gastro-esophageal reflux disease without esophagitis Coding Level of Care Code Est Pt Level 4 (31602) Diagnoses Mixed simple and mucopurulent chronic bronchitis J41.8 Chronic bronchitis type: mixed simple and mucopurulent Smoking F17.200 Chronic cough R05.3 Chronic allergic rhinitis J30.9 Time Spent (min) 17
== END 2023-10-06 11:28 | disposition home or self-care (01) ==
PROVIDERS: PCP Internal Medicine; Visit Provider Hospitalist
DX: J41.8 Mixed simple and mucopurulent chronic bronchitis (principal); F17.200 Nicotine dependence, unspecified, uncomplicated; R05.3 Chronic cough; J30.9 Allergic rhinitis, unspecified
CPT/HCPCS: 99214

== ENCOUNTER → 2023-10-06 10:55 | Outpatient (BNVA) | payer OTHER, SELFPAY | PROVIDERS: PCP Internal Medicine; Visit Provider Hospitalist ==

== ENCOUNTER 2023-10-11 08:51 | Outpatient (REF) | payer OTHER, SELFPAY | END 2023-10-11 08:52 | disposition home or self-care (01) | LOC: HO.LNP 08:51 | PROVIDERS: Visit Provider Hospitalist | DX: J42 Unspecified chronic bronchitis (principal) | CPT/HCPCS: 87070; 87205 ==

== ENCOUNTER 2023-10-12 07:52 | Outpatient (REF) | payer OTHER, SELFPAY ==
[2023-10-12 11:01] LABS: Appearance Urine Clear; Color Urine Yellow; Glucose Urine UA Negative (Negative); Leukocyte Esterase Urine Negative (Negative); Nitrite Urine Negative (Negative); PH 6.5 (5.0-9.0); Urine Blood Negative (Negative); Urine Ketones Negative (Negative); Urine Protein Negative (Neg-Trace)
== END 2023-10-12 07:53 | disposition home or self-care (01) ==
LOC: HO.LAB 07:52
PROVIDERS: Absent Provider Internal Medicine; PCP Internal Medicine; Visit Provider Advanced Practice Midwife
DX: M54.50 Low back pain, unspecified (principal); R30.0 Dysuria
CPT/HCPCS: 81003; 87086

== ENCOUNTER 2023-10-12 07:52 | Outpatient (AMB) | payer OTHER, SELFPAY ==
--- NOTE | 2023-10-12 07:57 | A.OFFVIS_ITS ---
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 She is doing well with no concerns: some stress incontinence w/coughing, she reports a lung nodule which is being followed, and her desire to quit tobacco. Admits fatigue and stress. Attempting to eat a healthy diet with calcium and vitamin D and stays active with exercise. Currently not sexually active. Denies any vaginal dryness or irritation. STI testing offered; she declines. Last pap smear; 2020, negative. History hysterectomy due to precancerous cells. Last mammogram; 2022. History of DCIS left breast. Colonoscopy is UTD. Has a follow up w/GI. [facility] Medical History History of left breast cancer (~1992) Nicotine dependence, cigarettes, uncomplicated Chronic bronchitis Chronic cough Chronic allergic rhinitis Osteopenia (~2016) GERD (gastroesophageal reflux disease) Hepatic steatosis Diverticulitis Loco's esophagus Basal cell carcinoma Depression Surgical History History of colonoscopy History of esophagogastroduodenoscopy (EGD) History of lumpectomy of left breast (~1992) History of left mastectomy (~2003) History of bilateral breast implants History of hysterectomy (~1997) History of back surgery History of bladder surgery History of rotator cuff surgery History of wisdom tooth extraction Family History Paternal Grandmother Breast cancer Social History Alcohol intake: current Alcohol intake frequency: 0-2 drinks per day Patient Tobacco Use Status: Current everyday Tobacco user Cigarette Packs Per Day: 0.75 Sexual orientation: Straight/Heterosexual Gender identity: Female Female Reproductive History Menstrual Age of Menarche: 14 control method: permanent sterilization Total pregnancies: 4 Full term: 2 Number of Living Children: 2 Ab induced: 1 Ab spontaneous: 1 Date of last pap smear: 10/16/20 (negative) History of abnormal pap smear: Yes Date of Mammogram: 03/09/23 Review of Systems Const All systems reviewed & are unremarkable except as noted in HPI and below Reports as per HPI Eyes Reports no additional complaints ENT Reports no additional complaints Card Reports no additional complaints Resp Reports no additional complaints GI Reports as per HPI and Reports no additional complaints Reports as per HPI Musc Reports no additional complaints Skin/Breast Reports as per HPI Neuro Reports no additional complaints Psych Reports no additional complaints Endo Reports no additional complaints Dioni/Lymph Reports no additional complaints Aller/Immun Reports no additional complaints Physical Exam Vital Signs: Last Vital Signs BP 130/72 10/12/23 08:02 BMI result Body Mass Index 25.0 Const General: cooperative, healthy appearing, no acute distress, well developed and alert Orientation/consciousness: patient oriented x3 HEENT Head: Yes normal to inspection Eyes General: appearance normal, both eyes and all related structures Neck Neck: Yes normal visual inspection Thyroid: Thyroid normal Chest Other: bilateral reconstruction, implant right side. Chest palpation & inspection: normal inspection of the chest and other (no puckering, dimpling, peau de orange, retraction, discharge, masses) Breast/axilla inspection: normal inspection of the breasts Breast/axilla palpation: normal palpation of the breasts Resp Effort & Inspection: normal respiratory effort GI Inspection: Yes normal to inspection Palpation (GI): Soft to palpation Rectal Exam - Female: deferred General: Yes bladder normal to palpation External Female Exam: normal external appearance and normal appearance of the urethra Speculum Exam - Vagina: normal appearance of the vagina, normal palpation and normal vaginal discharge Speculum Exam - Cervix: Cervix absent (Vaginal cuff no lesions or nodules) Bimanual exam- vagina & uterus: normal bimanual exam, normal palpation, bladder normal to palpation and uterus absent Bimanual Exam- Adnexa, other: no masses Skin General skin exam: no rashes or lesions noted Rashes: no rashes Neuro General: patient oriented x3 Cognition (Neuro): normal cognition Extrem General: Yes normal to inspection Psych Attitude: cooperative Thought process: Normal thought process present Assessment & Plan Assessment & Plan (1) Encounter for well woman exam with routine gynecological exam: Code(s): Z01.419 - Encounter for gynecological examination (general) (routine) without abnormal findings Category: Medical Plan: Discussed: Current recommendations for pap smears per ASCCP guidelines. Breast awareness, periodic self breast exams and yearly mammogram. Maintain a healthy lifestyle, well balanced diet including Calcium 1,200 mg and Vitamin D 600 IU daily, and routine exercise. Self-care, relaxation, stress reduction, and adequate hydration. Contact the office with any postmenopausal bleeding. Patient verbalizes understanding and agrees to the plan of care. She was given opportunity to ask questions and all questions were answered to the best of my ability. RTO in 1 year for annual web solutions architect exam. This note is constructed using voice recognition software. While every effort has been made to ensure accuracy, extrusion die repair manager errors may have been included. Coding Level of Care Code Est Pt Prev Care >65y(23354) Diagnoses Encounter for well woman exam with routine gynecological exam Z01.419
[2023-10-12 08:02] VITALS: BP 130/72; BMI 25.0
== END 2023-10-12 08:56 | disposition home or self-care (01) ==
PROVIDERS: Visit Provider Advanced Practice Midwife
DX: Z01.419 Encounter for gynecological examination (general) (routine) without abnormal findings (principal)
CPT/HCPCS: 99397

== ENCOUNTER 2023-10-12 14:19 | Outpatient (REF) | payer OTHER, SELFPAY ==
[2023-10-19 22:48] LABS: HPV mRNA E6/E7 rflx Not Detected (Not Detected)
== END 2023-10-12 14:20 | disposition home or self-care (01) ==
LOC: HO.LNP 14:19
PROVIDERS: Visit Provider Advanced Practice Midwife
DX: Z12.4 Encounter for screening for malignant neoplasm of cervix (principal)
CPT/HCPCS: 87624; 88142

== ENCOUNTER 2023-10-21 09:38 | Outpatient (REF) | payer OTHER, SELFPAY ==
[2023-10-21 12:38] LABS: MANUAL DIFF FLAG NO
[2023-10-21 12:45] LABS: Basophils Absolute Auto 0.1 X10*3/uL (0.0-0.2); Eosinophils Absolute Auto 0.3 X10*3/uL (0.0-0.4); Eosinophils Percent Auto 4.2 % (0-4); Hemoglobin 15.2 g/dl (12.0-16.0); Imm Gran Abs Auto 0.06 X10*3/uL (0.00-0.03); Imm Gran Pct Auto 0.9 % (0.0-0.4); Lymphocytes Absolute Auto 2.2 X10*3/uL (1.2-4.9); Lymphocytes Percent Auto 32.5 % (20-40); Mean Corpuscular HGB Conc 33.8 g/dl (31.0-35.0); Mean Corpuscular Hemoglobin 33.2 pg (27.0-33.0); Mean Corpuscular Volume 98.3 fL (80.0-98.0); Mean Platelet Volume 9.4 fL (9.4-12.3); Monocytes Absolute Auto 0.7 X10*3/uL (0.1-1.2); Neutrophils Absolute Auto 3.5 x10*3/uL (2.0-8.3); Neutrophils Percent Auto 51.4 % (45-73); Platelet Count 267 X10*3/uL (160-400); Red Blood Count 4.58 X10*6/uL (4.20-5.50); Red Cell Distribution Width 12.4 % (11.0-16.0); White Blood Count 6.9 X10*3/uL (4.8-10.8)
[2023-10-21 13:15] LABS: Alanine Aminotransferase 31 U/L (0-31); Albumin Level 4.2 g/dL (3.5-5.0); Alkaline Phosphatase 97 U/L (39-117); Aspartate Amino Transferase 24 U/L (5-31); Bilirubin Direct 0.1 mg/dL (0.0-0.5); Bilirubin Total 0.3 mg/dL (0.0-1.0); Lipase 31 U/L (8-78); Total Protein 7.1 g/dL (6.5-8.0)
== END 2023-10-21 09:39 | disposition home or self-care (01) ==
LOC: HO.LAB 09:38
PROVIDERS: PCP Internal Medicine; Visit Provider Internal Medicine Gastroenterology
DX: R10.33 Periumbilical pain (principal)
CPT/HCPCS: 36415; 80076; 83690; 85025

== ENCOUNTER 2023-10-24 15:56 | Outpatient (REF) | payer OTHER, SELFPAY ==
--- NOTE | ~2023-10-24 | XR_ITS ---
EXAMINATION: XR LUMBOSACRAL SPINE CLINICAL INFORMATION: Back pain COMPARISON: None available. TECHNIQUE: Three views of the lumbosacral spine. FINDINGS: Small riblets extend off T12. There is straightening of the usual lumbar lordosis which can be seen with muscle spasm. There are 4 nonrib-bearing lumbar-type vertebral bodies and a transitional lumbosacral vertebral body which for the purposes study will be called L5. There is mild curve of the lumbar spine, convex left. There is slight lateral subluxation of L4 on L5. The height of the lumbar vertebral bodies is well-maintained. There is mild disc space narrowing at L3-L4 with marginal osteophyte formation. There is marked disc space narrowing at L4-L5 with marginal osteophyte formation. The L5-S1 disc space is narrow. There is multilevel degenerative facet joint disease, most marked at L5-S1. XR/XR lumbar spine 2-3V IMPRESSION: 1. Muscle spasm. 2. Mild curve of the lumbar spine, convex left. 3. Degenerative disc disease at L3-L4 and L4-L5 and probably L5-S1. 4. Multilevel degenerative facet joint disease, most marked at L4-L5 and L5-S1.
== END 2023-10-24 15:57 | disposition home or self-care (01) ==
LOC: HO.XRAY 15:56
PROVIDERS: PCP Internal Medicine; Visit Provider Internal Medicine
DX: G20.C Parkinsonism, unspecified (principal)
CPT/HCPCS: 72100

== ENCOUNTER → 2023-10-25 09:47 | Outpatient (REF) | payer OTHER, SELFPAY ==
--- NOTE | 2023-10-25 11:14 | ECG_ITS ---
Test Reason : copd Blood Pressure : / mmHG Vent. Rate : 072 BPM Atrial Rate : 072 BPM P-R Int : 146 ms QRS Dur : 080 ms QT Int : 356 ms P-R-T Axes : 063 011 057 degrees QTc Int : 389 ms Normal sinus rhythm with sinus arrhythmia Normal ECG No previous ECGs available Referred By: Carlos Manuel Grey Electronically Signed By:RITU BLAND MD
== END ==
LOC: HO.CARD 09:47
PROVIDERS: PCP Internal Medicine; Visit Provider Hospitalist
DX: J44.9 Chronic obstructive pulmonary disease, unspecified (principal)
CPT/HCPCS: 93005

== ENCOUNTER → 2023-10-25 11:14 | Outpatient (BNV) | payer OTHER, SELFPAY | PROVIDERS: PCP Internal Medicine; Visit Provider Internal Medicine Cardiovascular Disease | DX: J44.9 Chronic obstructive pulmonary disease, unspecified (principal) | CPT/HCPCS: 93010 ==

== ENCOUNTER 2023-11-07 19:32 | Outpatient (REF) | payer OTHER, SELFPAY ==
--- NOTE | ~2023-11-07 | MR_ITS ---
EXAMINATION: MR LUMBAR SPINE WITHOUT CONTRAST CLINICAL INFORMATION: Back pain with deformity of L5. Assess for stenosis. COMPARISON: Plain films of the lumbar spine 10/24/2023. MRI scan of the lumbar spine 05/27/2021. TECHNIQUE: MRI of the lumbar spine was obtained using routine sequences without contrast. FINDINGS: VERTEBRAL BODIES AND PARASPINAL STRUCTURES: The study redemonstrates the rotatory levoscoliosis with the apex at L3-L4. There is a mild subluxation of L4 on L5 toward the left. There is multilevel narrowing of intervertebral disc height at L2-L3, L3-L4 and L4-L5. There is disc desiccation at these levels, most severe at L4-L5. Vertebral body heights maintained, and no fractures are demonstrated. Overall, marrow signal is homogenous. There are cysts in the kidneys bilaterally which do not need further imaging evaluation. The visualized pelvic structures are unremarkable. CONUS MEDULLARIS AND CAUDA EQUINA: Normal, terminating at the level of T12. The lower thoracic spinal cord appears normal. The cauda equina nerve roots and filum terminale appear normal. SPINAL LEVELS: L1-L2: The facet joints appear normal bilaterally. Disc contour is normal. There is no central stenosis or foraminal narrowing. L2-L3: The facet joints appear normal. There is a mild diffuse disc bulge but there is no central stenosis. There is a left foraminal disc protrusion extending far laterally with impingement on the exiting and extraforaminal segments of the left L2 nerve root. L3-L4: There is mild bilateral facet arthropathy. There is a right-sided disc protrusion with mild narrowing of the right subarticular recess, more prominent compared to prior imaging. There is no central stenosis. A right foraminal disc protrusion extends far laterally with impingement on the exiting and extraforaminal segments of the right L3 nerve root. L4-L5: There is moderate bilateral facet arthropathy. There appear to be sequelae of a left hemilaminectomy. There is a broad-based posterior disc protrusion which flattens the ventral thecal sac and mildly narrows the subarticular recesses bilaterally. There is mild central stenosis. There is a right foraminal disc protrusion without definite exiting nerve root impingement. The previously noted extruded disc extending into the left subarticular recess is no longer visualized. L5-S1: There is severe bilateral facet arthropathy. There is a shallow posterior disc protrusion without mass effect on the thecal sac and there is no central stenosis. A left foraminal disc protrusion impinges on the exiting left L5 nerve root. MR/MR lumbar spine wo con IMPRESSION: 1. At L4-L5 there is a broad-based posterior disc protrusion with mild narrowing of the subarticular recesses bilaterally. There is mild central stenosis. There is a right foraminal disc protrusion without definite exiting nerve root impingement. There appear to be sequelae of a left-sided hemilaminectomy. The previously noted extruded disc extending into the left subarticular recess is no longer visualized. 2. At L3-L4 there is a right-sided disc protrusion with mild narrowing of the right subarticular recess, more prominent compared to prior imaging. There is no central stenosis. A right foraminal disc protrusion extends far laterally with impingement on the exiting and extraforaminal segments of the right L3 nerve root. 3. At L2-L3 there is a left foraminal disc protrusion extending far laterally with impingement on the exiting and extraforaminal segments of the left L2 nerve root. 4. At L5-S1 there is severe facet arthropathy. There is a shallow posterior disc protrusion without central stenosis. A left foraminal disc protrusion impinges on the exiting left L5 nerve root.
== END 2023-11-07 19:33 | disposition home or self-care (01) ==
LOC: HO.MRI 19:32
PROVIDERS: PCP Internal Medicine; Visit Provider Internal Medicine
DX: M48.061 Spinal stenosis, lumbar region without neurogenic claudication (principal)
CPT/HCPCS: 72148

== ENCOUNTER 2023-11-09 12:24 | Day surgery (SDC) | payer OTHER, SELFPAY ==
[2023-11-07 15:05] VITALS: BMI 25.0
--- NOTE | 2023-11-08 09:06 | HO.ANESPROP2 ---
Documented by User: Marta Sinha NP 11/08/23 09:06 HPI - Anesthesia Eval Consult details Narrative: 68yo F for Upper Endoscopy and Colonoscopy PMF Active Problems Active Problems: All Active Problems Encounter for well woman exam with routine gynecological exam (Acute) Pulmonary nodule (Acute) History of left breast cancer (Acute ~1992) Nicotine dependence, cigarettes, uncomplicated (Acute) Chronic allergic rhinitis (Acute) Chronic bronchitis (Acute) Chronic cough (Acute) Osteopenia (Acute ~2017) Nephrolithiasis (Acute) Hepatic steatosis (Acute) Diverticulitis (Acute) Infected sebaceous cyst (Acute) Past Medical History Medical History History of left breast cancer (~1992) Nicotine dependence, cigarettes, uncomplicated Chronic bronchitis Chronic cough Chronic allergic rhinitis Osteopenia (~2016) GERD (gastroesophageal reflux disease) Hepatic steatosis Diverticulitis Loco's esophagus Basal cell carcinoma Depression Family History Family History Paternal Grandmother Breast cancer Surgical History Surgical History History of colonoscopy History of esophagogastroduodenoscopy (EGD) History of lumpectomy of left breast (~1992) History of left mastectomy (~2003) History of bilateral breast implants History of hysterectomy (~1997) History of back surgery History of bladder surgery History of rotator cuff surgery History of wisdom tooth extraction Social History Social History Alcohol intake: current Alcohol intake frequency: 0-2 drinks per day Patient Tobacco Use Status: Current everyday Tobacco user Cigarette Packs Per Day: 0.75 Cigarettes Per Day: 15 Use of substances other than those prescribed or required for medical reasons: Yes Substance Use Frequency: Occasionally Are you DNR?: No Advance Directives: No Advance Directives Information Provided: Yes Sexual orientation: Straight/Heterosexual Gender identity: Female Meds Allergies Allergy/AdvReac Type Severity Reaction Status Date / Time amoxicillin [AMOXICILLIN] Allergy Severe HIVES Verified 10/12/23 08:07 Sulfa (Sulfonamide Allergy Severe HIVES,SWELL Verified 10/12/23 08:07 Antibiotics) ING [SULFA (SULFONAMIDE ANTIBIOTICS)] ENVIROMENTAL Allergy Mild NASAL Uncoded 05/22/24 08:07 CONGESTION Home Medications ?Medication ?Instructions ?Recorded ?Confirmed ?Last Taken ?Type alprazolam 0.25 mg tablet 0.25 mg PO BID PRN 03/27/20 04/28/22 Unknown History multivitamin 1 tab PO DAILY 03/27/20 04/28/22 Unknown History fluoxetine 20 mg capsule 20 mg PO DAILY 10/15/20 04/28/22 Unknown History atorvastatin 20 mg tablet 20 mg PO DAILY 10/06/22 Unknown History cholecalciferol (vitamin D3) 1,250 1,250 mcg PO QWEEK 10/12/23 Unknown History mcg (50,000 unit) tablet simvastatin 10 mg tablet 10 mg PO BEDTIME 10/12/23 Unknown History Exam Height,Weight and Vital Signs: Height 5 ft 4.5 in Weight 67.132 kg Assessment and Plan Assessment Anesthesia Assessment: Chart Reviewed Documented by User: Lakshmi Blanchard MD 11/09/23 13:25 PMFSH Past Medical History Medical History History of left breast cancer (~1992) Nicotine dependence, cigarettes, uncomplicated Chronic bronchitis Chronic cough Chronic allergic rhinitis Osteopenia (~2016) GERD (gastroesophageal reflux disease) Hepatic steatosis Diverticulitis Loco's esophagus Basal cell carcinoma Depression Family History Family History Paternal Grandmother Breast cancer Surgical History Surgical History History of colonoscopy History of esophagogastroduodenoscopy (EGD) History of lumpectomy of left breast (~1992) History of left mastectomy (~2003) History of bilateral breast implants History of hysterectomy (~1997) History of back surgery History of bladder surgery History of rotator cuff surgery History of wisdom tooth extraction History of Problems with Anesthesia: No Social History Social History Alcohol intake: current Alcohol intake frequency: 0-2 drinks per day Patient Tobacco Use Status: Current everyday Tobacco user Cigarette Packs Per Day: 0.75 Cigarettes Per Day: 15 Use of substances other than those prescribed or required for medical reasons: Yes Substance Use Frequency: Occasionally Are you DNR?: No Advance Directives: No Advance Directives Information Provided: Yes Sexual orientation: Straight/Heterosexual Gender identity: Female Meds Allergies Allergy/AdvReac Type Severity Reaction Status Date / Time amoxicillin [AMOXICILLIN] Allergy Severe HIVES Verified 10/12/23 08:07 Sulfa (Sulfonamide Allergy Severe HIVES,SWELL Verified 10/12/23 08:07 Antibiotics) ING [SULFA (SULFONAMIDE ANTIBIOTICS)] ENVIROMENTAL Allergy Mild NASAL Uncoded 10/12/23 08:07 CONGESTION Home Medications ?Medication ?Instructions ?Recorded ?Confirmed ?Last Taken ?Type alprazolam 0.25 mg tablet 0.25 mg PO BID PRN 03/27/20 04/28/22 Unknown History multivitamin 1 tab PO DAILY 03/27/20 04/28/22 Unknown History fluoxetine 20 mg capsule 20 mg PO DAILY 10/15/20 04/28/22 Unknown History atorvastatin 20 mg tablet 20 mg PO DAILY 10/06/22 Unknown History cholecalciferol (vitamin D3) 1,250 1,250 mcg PO QWEEK 10/12/23 Unknown History mcg (50,000 unit) tablet simvastatin 10 mg tablet 10 mg PO BEDTIME 10/12/23 Unknown History Exam Airway Mallampati Class: II TM Dist: >3cm Neck ROM: Full Loose/Missing/Broken Teeth: No Heart: RRR Lungs: CTA Assessment and Plan Assessment Anesthesia Assessment: Anesthesia Plan Discussed Final Anesthetic Review History of Problems with Anesthesia: No NPO: Yes ASA Class: III Final Preanesthetic Review: Meds/Allgs Chart Reviewed, Consent Obtained/Reviewed and Anes Risks/Benef Reviewed Patient Risk: Intermediate Procedure Risk: Intermediate Anesthetic Plan Anesthetic Plan: MAC: Disposition: Standard PACU
[2023-11-09 12:38] VITALS: BMI 24.1
[2023-11-09 12:54] VITALS: BP 138/80; PULSE 80; RESP 16; TEMP 37.1; O2SAT 97
[2023-11-09] MEDS: Lactated Ringers 1,000 ML 100 ML IVCONT (13:08)
--- NOTE | 2023-11-09 13:27 | MHC.SHP ---
Pre-Procedural Eval Section A - 24 Hr Update-Section A only Date of Service: 11/09/23 The patient is an INPATIENT: No Changes since office visit: No Cold of Flu in the past 2 weeks, No New Medical Problems, No Changes in Medication and No Patient answered all questions The patient has been examined within 24 hours of the surgical procedure. The History & Physical has been completed within 30 days and I have reviewed it.: Yes Section B - Complete if H&P > 30 days Chief Complaint: Periumbilical pain Allergies: Allergies Allergy/AdvReac Type Severity Reaction Status Date / Time amoxicillin [AMOXICILLIN] Allergy Severe HIVES Verified 10/12/23 08:07 Sulfa (Sulfonamide Allergy Severe HIVES,SWELL Verified 10/12/23 08:07 Antibiotics) ING [SULFA (SULFONAMIDE ANTIBIOTICS)] ENVIROMENTAL Allergy Mild NASAL Uncoded 10/12/23 08:07 CONGESTION Plan I have reviewed the history and physical and performed a pertinent physical examination on my patient. No changes have occurred unless specified. Time Spent With Patient Time: Total time managing care of this patient today ____ minutes.
[2023-11-09 14:20] VITALS: BP 140/73; PULSE 92; RESP 16; TEMP 36.6; O2SAT 97
[2023-11-09 14:35] VITALS: BP 145/71; PULSE 83; RESP 18; TEMP 36.6; O2SAT 18
--- NOTE | 2023-11-09 15:37 | OP_ITS ---
DATE OF SERVICE: 11/09/2023 SURGEON: Rojelio Lake MD INDICATIONS: 1. Loco esophagus. 2. Colon cancer screening and prior history of adenomatous colon polyps. PREOPERATIVE DIAGNOSIS: POSTOPERATIVE DIAGNOSIS: PROCEDURE PERFORMED: Upper endoscopy with biopsy, colonoscopy to the terminal ileum with snare polypectomy. ESTIMATED BLOOD LOSS: COMPLICATIONS: ANESTHESIA: Monitored anesthesia care. ASSISTANTS: SPECIMENS: DESCRIPTION OF PROCEDURE: A history and physical was performed. The risks and benefits of the procedure were explained to the patient and informed consent was obtained. The patient was placed in the left lateral decubitus position. The Olympus video gastroscope was introduced into the esophagus, stomach, and duodenum. Examination was performed and the scope was removed. She was repositioned for colonoscopy. A digital rectal exam was performed and was found to be normal. The Olympus pediatric video colonoscope was introduced into the rectum and advanced to the cecum. The cecum was identified by transillumination, palpation, and identification of ileocecal valve. Examination was performed and the scope was removed. She tolerated the procedures well and was returned to recovery area in stable condition. FINDINGS: Upper endoscopy, esophagus: There were changes consistent with Lindsay esophagitis with white patches throughout the body of the esophagus, likely secondary to the patient's inhaler usage. The EG junction was irregular, but there were no raised lesions or ulcerated areas. Biopsies were obtained from the EG junction and the esophagus at 30 cm. Stomach: The stomach showed some antral erythema consistent with gastritis. Biopsies were obtained from the antrum. Duodenum: There was mild erythema in the duodenal bulb, but no ulcer was identified. The 2nd portion was normal. Colonoscopy: The terminal ileum was briefly examined and appeared normal. The visualized colonic mucosa was normal. There was some stool in the right colon, which was washed and suctioned. This did limit the sensitivity examination for detection of small polyps. At 60 cm, was a flat 10 mm sessile polyp, which was removed piecemeal with a snare and recovered via suction. There was moderate sigmoid diverticulosis with scattered diverticulosis throughout the rest of the colon. Retroflexed examination showed moderate-sized internal hemorrhoids with hypertrophic anal papillae. IMPRESSION: 1. Loco esophagus. 2. Gastritis. 3. Lindsay esophagitis. 4. Colon polyp. RECOMMENDATION: Follow up the biopsy results. MD JENNIFER Alfonso/MILAGRO / [phone]
== END 2023-11-09 15:03 | disposition home or self-care (01) ==
PROVIDERS: PCP Internal Medicine; Visit Provider Internal Medicine Gastroenterology
PROC: (CPT 45385; principal; 2023-11-09 13:40)
DX: Z12.11 Encounter for screening for malignant neoplasm of colon (principal); D12.4 Benign neoplasm of descending colon; K58.9 Irritable bowel syndrome, unspecified; R10.33 Periumbilical pain; K29.50 Unspecified chronic gastritis without bleeding; K22.70 Barrett's esophagus without dysplasia; K21.9 Gastro-esophageal reflux disease without esophagitis; J30.9 Allergic rhinitis, unspecified; F41.8 Other specified anxiety disorders; Z85.3 Personal history of malignant neoplasm of breast; Z79.51 Long term (current) use of inhaled steroids; Z79.899 Other long term (current) drug therapy; F17.210 Nicotine dependence, cigarettes, uncomplicated
CPT/HCPCS: 45385; 43239; 88305; 88313; 88342; J1596; J2704

== ENCOUNTER 2023-12-09 11:39 | Outpatient (AMB) | payer OTHER, SELFPAY ==
--- NOTE | 2023-12-09 11:52 | HO.SPINEOV ---
Intake Visit Reasons: F/u after MRI Intake Note: Ms. Marvin is here today c/o low back pain. Allergies amoxicillin [AMOXICILLIN] Allergy (Severe, Verified 10/12/23 08:07) HIVES Sulfa (Sulfonamide Antibiotics) [SULFA (SULFONAMIDE ANTIBIOTICS)] Allergy (Severe, Verified 10/12/23 08:07) HIVES,SWELLING ENVIROMENTAL Allergy (Mild, Uncoded 10/12/23 08:07) NASAL CONGESTION Assessment & Plan Assessment & Plan (1) Lumbar degenerative disc disease: Code(s): M51.36 - Other intervertebral disc degeneration, lumbar region Category: Medical Plan: Dear colleague, On 12/09/2023 I saw Rachel Marvin with a chief complaint of low back pain. History of present illness: This 68-year-old female developed acute low back pain approximately 3 months ago without a precipitating event. The pain was debilitating. There was no radiation into her legs. She does have a history of a lumbar decompression 3 years ago for left-sided sciatica which responded well to surgery. The pain is located in the lower lumbar region. No physical therapy or injections are done. One month ago she started lidocaine patches which alleviated the pain. Currently she is able to function. On exam today there are no abnormalities. Radiological studies, an x-ray of the lumbar spine shows a mild degenerative scoliosis. An MRI of the lumbar spine shows mild disc bulging at L3-4 and L4-5. No significant nerve root compression were central stenosis. In summary, this patient developed acute lumbago. Currently treated well with lidocaine patches. I do not think she is a surgical candidate. I am convinced that the symptoms will disappear over time. I did prescribe her referral to physical therapy. I spent 30 minutes in his consult. Thank you for allowing me take care of this patient. Garrison Montez MD, PhD Spine Fellowship Trained Neurosurgeon Director, [facility] Orders: Orders PT Evaluation and Treatment Today M51.36 - Other intervertebral disc degeneration, lumbar region Coding Level of Care Code New Pt Level 3 (90589) Diagnoses Lumbar degenerative disc disease M51.36
== END 2023-12-09 12:16 | disposition home or self-care (01) ==
PROVIDERS: PCP Internal Medicine; Visit Provider Neurological Surgery
DX: M51.36 Other intervertebral disc degeneration, lumbar region (principal)
CPT/HCPCS: 99203

== ENCOUNTER 2023-12-09 13:22 | Outpatient (REF) | payer OTHER, SELFPAY ==
--- NOTE | ~2023-12-09 | CT_ITS ---
EXAMINATION: CT LOW-DOSE SCREENING CHEST WITHOUT CONTRAST CLINICAL INFORMATION: Nicotine dependence, cigarettes, uncomplicated; 40 pack-years, current smoker. 67 kg. Follow-up exam for 7 mm right apical nodule. COMPARISON: 05/20/2023. TECHNIQUE: Multidetector volumetric CT imaging of the chest is performed on a Siemens SOMATOM Definition scanner without contrast using low dose technique. Additional 2D coronal and sagittal reformatted images and axial 3D maximum intensity projection (MIP) images are generated on the CT workstation. This CT examination was performed using dose optimization techniques as appropriate, variously including the following: *Automated exposure control *Adjustment of mA and/or kV according to patient size (this includes techniques or standardized protocols for targeted exams where dose is matched to indication/reason for exam; i.e. extremities or head) *Use of iterative reconstruction technique TOTAL EXAM DLP: 47 mGy-cm. Please note, due to [facility] contractual, systems, and staffing issues, an [facility] radiologist was not available for review and dictation of this case until 01/20/2024. FINDINGS: PULMONARY NODULES: -7 mm right apical nodule is unchanged, and inseparable from apical scarring (series 5, image 82). This is benign. -3 mm triangular nodule superior segment right lower lobe, just posterior to the major fissure with pleural tag is stable, and consistent with intrapulmonary lymph node (series 5, image 239). -2 mm nodule superior segment right lower lobe laterally (series 5, image 334), unchanged. -No new or enlarging pulmonary nodules. LUNGS: -Mild paraseptal emphysema with upper lobe predominance. -Mild scarring in the lingular segment and right middle lobe. -No active pulmonary disease. -Mild thickening of the small airways, suggestive of chronic bronchitis. No significant bronchiectasis. -Central airways normal. -No pleural effusion or mass. MEDIASTINUM: -Normal thyroid. -There are small mediastinal and prevascular lymph nodes, none which are pathologically enlarged. These are presumably reactive and are stable. -The aorta is moderately calcified and uncoiled, but nonaneurysmal. The main pulmonary artery is normal. -Esophagus appears mildly patulous but otherwise normal. -Heart size is normal. No pericardial effusion. CORONARY ARTERY CALCIFICATION: There are mild three-vessel coronary calcifications. CHEST WALL/AXILLA: There are bilateral partially calcified breast implants in place. There has been a left mastectomy with left axillary dissection. -No abnormal lymphadenopathy or masses. UPPER ABDOMEN: Included portions of the solid organs in the upper abdomen unremarkable on noncontrast imaging. OSSEOUS STRUCTURES: No suspicious focal findings. Mild to moderate degenerative changes of the imaged spine. CT/CT lung screen follow up IMPRESSION: 1. Stable 7 mm right apical nodule is unchanged, and benign. 2. There are two 3 and 2 mm right lung nodules which are unchanged. 3. There is no new or enlarging pulmonary nodule. 4. Mild paraseptal emphysema with upper lobe predominance. No active pulmonary disease. 5. Small airway thickening suggesting mild chronic bronchitis. 6. Additional ancillary findings as discussed in the body of the report. ASSESSMENT: 1. Lung-RADS Category 2: Benign appearance or behavior of nodules. 2. Lung-RADS Category S: None. RECOMMENDATION: Continued routine annual low-dose CT lung screening in 1 year is recommended. An order for CT CHEST LOW DOSE CANCER SCREENING ([id number]) can be placed. Electronically signed by: Marco A Beltre MD 01/20/2024 01:32 PM EDT
== END 2023-12-09 13:23 | disposition home or self-care (01) ==
LOC: HO.CT 13:22
PROVIDERS: PCP Internal Medicine; Visit Provider Nurse Practitioner Family
DX: F17.210 Nicotine dependence, cigarettes, uncomplicated (principal); R91.1 Solitary pulmonary nodule
CPT/HCPCS: 71250

== ENCOUNTER → 2023-12-09 13:22 | Outpatient (BNV) | payer OTHER, SELFPAY | PROVIDERS: PCP Internal Medicine; Visit Provider Radiology Diagnostic Radiology | DX: F17.200 Nicotine dependence, unspecified, uncomplicated (principal) | CPT/HCPCS: 71271 ==

== ENCOUNTER 2023-12-12 11:00 | Outpatient (AMB) | payer OTHER, SELFPAY ==
--- NOTE | 2023-12-12 11:02 | MHC.OFFVIS ---
Vital Signs 12/12/23 11:03 Height 5 ft 4 in Weight 142 lb 6.698 oz BMI 24.4 BP 114/72 Blood Pressure Location Rt brachial Position Sitting Pulse 90 Pulse Source Pulse Oximeter Pulse Oximetry (%) 96 Oxygen Delivery Method Room Air Intake Visit Reasons: cough Offender Job Retention Specialist Required: No Allergies amoxicillin [AMOXICILLIN] Allergy (Severe, Verified 12/12/23 11:06) HIVES Sulfa (Sulfonamide Antibiotics) [SULFA (SULFONAMIDE ANTIBIOTICS)] Allergy (Severe, Verified 12/12/23 11:06) HIVES,SWELLING ENVIROMENTAL Allergy (Mild, Uncoded 12/12/23 11:06) NASAL CONGESTION HPI Comments Details: The patient is a 68 year woman with a known history of tobacco dependency in addition to breast cancer x2 status post surgery radiation and chemo. She has been cancer free now for close to 20 years. The patient has been complaining of worsening cough. Usually is productive in nature typically in the morning. Moderate severity. She does have significant allergies and she attributes the cough primarily due to her significant postnasal drip. She has tried multiple allergy medications with no significant improvement. The patient has not had any recent allergy testing. She did have a chest x-ray back in 2020 personally by me demonstrating some degree of hyperinflation. The patient has not had any more imaging studies and she has not had any recent pulmonary function studies to review. Unfortunately she is still smoking. She is wondering about quitting specially in the winter months because she does not want to go outside in the cold weather. She was able to quit before with the help of nicotine patches and also quit cold turkey. She recently was placed on antidepressive agents so therefore Chantix may be problematic. In addition to that she has had a bad reaction to Wellbutrin. On examination she definitely has significant nasal congestion and inflammation of the turbinates. Patient also has evidence of coarse breath sounds at the right base suggesting some degree of chest congestion which is asymmetric from the left hemithorax. Therefore would be reasonable to treat her for lower respiratory infection. 10/06/2023 the patient is here for pulmonary sick visit. He she states that she has been coughing now regularly for the last few months. Moderate severity. Typically worse in the morning. Is able to expectorate some dark phlegm in the morning although she is smoking also drinking coffee. She did try to cut down the smoking although she has had hard time. She has not started the Chantix. She has been concerned about potential adverse effects. Although we did talk about considering a lower dose of Chantix. She is going to think about it. In the meantime the patient continues to complain of cough. We did review her last CT scan of the chest. This is done back in April 2023. Was considered a rads 3. She has the 6-7 mm nodule and requires a CT scan in 6 months. In addition to that they mentioned something about capsulitis of her breast prosthesis. She did have breast cancer in the past in the left side and she does get some irritation. She will follow-up with her concrete grinder operator oncologist regarding that. 12/12/2023 the patient is here for a pulmonary follow-up visit. The patient overall is doing okay. She did have a CT scan as part of the lung cancer screening program. We did review together. Unfortunately, has not been officially read he has not yet. It appears that the right upper lobe pulmonary nodules not changed still measuring around 7 mm in size. Patient also has a little bit of emphysema and some calcifications of the coronary artery major vessels. She is aware of this. She knows she needs to quit smoking. I did send her the patch in order for her to start working on the smoking cessation which should improve important for her. She continues use her respiratory therapy with good effect. Will plan to follow-up in 6-8 months. The patient has any difficulties prior to that she will call for an earlier assessment. Also, went for the final read on the CT scan hopeful that is similar to my reading if not already know if any other incidental findings. [facility] Medical History History of left breast cancer (~1992) Nicotine dependence, cigarettes, uncomplicated Chronic bronchitis Chronic cough Chronic allergic rhinitis Osteopenia (~2016) GERD (gastroesophageal reflux disease) Hepatic steatosis Diverticulitis Loco's esophagus Basal cell carcinoma Depression Surgical History History of colonoscopy History of esophagogastroduodenoscopy (EGD) History of lumpectomy of left breast (~1992) History of left mastectomy (~2003) History of bilateral breast implants History of hysterectomy (~1997) History of back surgery History of bladder surgery History of rotator cuff surgery History of wisdom tooth extraction Family History Paternal Grandmother Breast cancer Social History Alcohol intake: current Alcohol intake frequency: 0-2 drinks per day Patient Tobacco Use Status: Current everyday Tobacco user Cigarette Packs Per Day: 0.75 Cigarettes Per Day: 15 Sexual orientation: Straight/Heterosexual Gender identity: Female Female Reproductive History Menstrual Age of Menarche: 14 Review of Systems Const Denies chills and Denies fever(s) ENT Reports nasal congestion, Reports nasal discharge, Reports nasal obstruction and Reports post nasal drip Card Denies chest pain, Denies dyspnea and Denies dyspnea on exertion Resp Reports chest congestion, Reports cough, Denies hemoptysis, Denies dyspnea and Denies dyspnea on exertion GI Denies abdominal pain Denies hematuria Musc Denies back pain and Denies limited range of motion Skin/Breast Denies rash Neuro Denies focal weakness and Denies convulsions Psych Denies depression and Denies mood swings Endo Denies flushing Dioni/Lymph Denies easy bruising and Denies lymphadenopathy Aller/Immun Reports seasonal rhinorrhea Physical Exam Vital Signs: Last Vital Signs Pulse 90 12/12/23 11:03 BP 114/72 12/12/23 11:03 Pulse Ox 96 12/12/23 11:03 Oxygen Delivery Method Room Air 12/12/23 11:03 BMI result Body Mass Index 24.4 Const General: well developed and alert Orientation/consciousness: patient oriented x3 HEENT Head: Yes normal to inspection General nose exam: Abnormal mucous membranes and turbinates present erythematous Eyes General: appearance normal, both eyes and all related structures Neck Neck: Yes normal visual inspection Chest Other: bilateral implants and scaring Chest palpation & inspection: normal inspection of the chest Resp Effort & Inspection: normal respiratory effort Auscultation: wheezes and diminished lung sounds Cardio Rate: regular rate Rhythm: regular rhythm Heart sounds: S1 normal heart sound present and S2 normal heart sound present GI Palpation (GI): Soft to palpation (to palpation) Other: sebaceous glands in labia fold;normal Skin General skin exam: no rashes or lesions noted Neuro General: patient oriented x3 Cognition (Neuro): normal cognition Extrem General: Yes no clubbing, cyanosis or edema Psych Attitude: cooperative Thought process: Normal thought process present Thought content: Normal thought content present Assessment & Plan Assessment & Plan (1) Chronic bronchitis: Code(s): J42 - Unspecified chronic bronchitis Category: Medical Qualifiers: Chronic bronchitis type: mixed simple and mucopurulent Qualified Code(s): J41.8 - Mixed simple and mucopurulent chronic bronchitis (2) Smoking: Code(s): F17.200 - Nicotine dependence, unspecified, uncomplicated Category: Social Hx (3) Chronic cough: Code(s): R05.3 - Chronic cough Category: Medical (4) Chronic allergic rhinitis: Code(s): J30.9 - Allergic rhinitis, unspecified Category: Medical Plan Breo 200 daily SHAILA as needed stopped Azithromycin MWF Smoking cessation: nicotine patch CT chest LDCT F/U 6-8 months Medications: New nicotine (Nicoderm CQ) 1 patch transdermal DAILY 28 ea 6RF Coding Level of Care Code Est Pt Level 4 (87933) Diagnoses Mixed simple and mucopurulent chronic bronchitis J41.8 Chronic bronchitis type: mixed simple and mucopurulent Smoking F17.200 Chronic cough R05.3 Chronic allergic rhinitis J30.9 Time Spent (min) 17
[2023-12-12 11:03] VITALS: BP 114/72; PULSE 90; O2SAT 96; BMI 24.4
== END 2023-12-12 11:22 | disposition home or self-care (01) ==
PROVIDERS: PCP Internal Medicine; Visit Provider Hospitalist
DX: J41.8 Mixed simple and mucopurulent chronic bronchitis (principal); F17.200 Nicotine dependence, unspecified, uncomplicated; R05.3 Chronic cough; J30.9 Allergic rhinitis, unspecified
CPT/HCPCS: 99214

== ENCOUNTER → 2023-12-12 11:00 | Outpatient (BNVA) | payer OTHER, SELFPAY | PROVIDERS: PCP Internal Medicine; Visit Provider Hospitalist ==

== ENCOUNTER 2024-05-21 08:11 | Outpatient (REF) | payer MEDICARE, SELFPAY ==
--- NOTE | ~2024-05-21 | MM_ITS ---
EXAMINATION: MM SCREENING DIGITAL BREAST TOMOSYNTHESIS, RIGHT CLINICAL INFORMATION: Screening. Asymptomatic. Left Mastectomy. COMPARISON: Mammography: Comparison is made with relevant avialable priors. TECHNIQUE: Digital mammography is performed in craniocaudal and mediolateral oblique views along with computer-aided detection (CAD). Digital breast tomosynthesis is performed in implant-displaced craniocaudal and implant-displaced mediolateral oblique views along with computer-aided detection (CAD). FINDINGS: There are scattered areas of fibroglandular density (ACR BI-RADS breast composition Category b). Retropectoral implant is stable appearing. There are no significant masses, abnormal calcifications, or other abnormalities. MM/MM tomosynthesis screen imp RT IMPRESSION: No mammographic evidence of malignancy. ASSESSMENT: BI-RADS BI-RADS 2 - Benign Findings RECOMMENDATION: Routine annual mammography screening. 1 year F/U This patient's information was entered into a reminder system with a target due date for their next mammogram. Electronically signed by: Sada Doherty DO 05/21/2024 11:52 AM ANGELA
--- OUTSIDE RECORDS SUMMARY | 2024-05-21 08:15 | XMS_ITS ---
Author Organization [facility] Address [address] [place] [phone] Care Team Providers Care Transplant Nurse Practitioner Name Role Phone Mike Bush MD Primary Care Provider UnavailRojelio Palacios Jr Unavailable [phone] REASON FOR VISIT Patient presents today for barretts esophagus Encounters Encounter Location Date Provider Diagnosis [facility] [address] [place] [phone] 02/16/2024 Rojelio Lake Jr PLAN OF TREATMENT No Information
--- OUTSIDE RECORDS SUMMARY | 2024-05-21 08:15 | XMS_ITS ---
Author Organization [facility] Address [address] [place] [phone] Care Team Providers Care Cloth Boil Off Machine Operator Name Role Phone Mike Bush MD Primary Care Provider UnavailRojelio Palacios Jr [phone] REASON FOR VISIT cancelled appt Encounters Encounter Location Date Provider Diagnosis [facility] [address] [place] [phone] 02/14/2024 Rojelio Lake Jr PLAN OF TREATMENT No Information
--- OUTSIDE RECORDS SUMMARY | 2024-05-21 08:15 | XMS_ITS ---
Author Organization [facility] Address [address] [place] [phone] Care Team Providers Care Vehicle Check In Clerk Name Role Phone Mike Bush MD Primary Care Provider UnavailRojelio Palacios Jr [phone] REASON FOR VISIT pathology MEDICATIONS Medication SIG (Take, Route, Fr equency, Duration) Notes Start Date End Date Status Fluconazole 200 MG 1 tablet Orally daily for 14 days 11/16/2023 Active Encounters Encounter Location Date Provider Diagnosis [facility] [address] [place] [phone] 11/16/2023 Rojelio Lake Jr PLAN OF TREATMENT Medication Medication Name Sig Start Date Stop Date Notes Fluconazole 200 MG 1 tablet Orally daily for 14 days 11/15
--- OUTSIDE RECORDS SUMMARY | 2024-05-21 08:15 | XMS_ITS | Patient Health Record ---
Author Organization [facility] Address [address] [place] [address] Care Team Providers Care Residential Door Installer Name Role Phone Mike Bush MD Primary Care Provider Rojelio Dietrich Jr Unavailable ALLERGIES Allergen (clinical drug ingredient) Drug/Non Drug Allergy documented on EMR Reaction Allergy Type Onset Date Status seasonal (uncoded) Unknown Allergy A ctive RESULTS Component Value Reference Range Notes Complete Blood Count Auto Di ff Reviewed date:10/27/2023 10:08:16 AM Interpretation: Performing Lab:[facility], [address] [place] [phone] Notes/Report: White Blood Count 6.9 4.8-10.8 X10*3/uL Red Blood Count 4.58 4.20-5.50 X10*6/uL Hemoglobin 15.2 12.0-16.0 g/dl Hematocrit 45.0 37.0-47.0 % Mean Corpuscular Volume 98.3 80.0-98.0 fL Mean Corpuscular Hemoglobin 33.2 27.0-33.0 pg Mean Corpuscular HGB Conc 33.8 31.0-35.0 g/dl Red Cell Distribution Width 12.4 11.0-16.0 % Platelet Count 267 160-400 X10*3/uL Mean Platelet Volume 9.4 9.4-12.3 fL Neutrophils Percent Auto 51.4 45-73 % Imm Gran Pct Auto 0.9 0.0-0.4 % Lymphocytes Percent Auto 32.5 20-40 % Monocytes Percent Auto 10.0 2-11 % Eosinophils Percent Auto 4.2 0-4 % Basophils Percent Auto 1.0 0-2 % NRBC Pct Auto 0.0 0.0-0.2 /100WBC Neutrophils Absolute Auto 3.5 2.0-8.3 x10*3/u L Imm Gran Abs Auto 0.06 0.00-0.03 X10*3/uL Lymphocytes Absolute Auto 2.2 1.2-4.9 X10*3/u L Monocytes Absolute Auto 0.7 0.1-1.2 X10*3/uL Eosinophils Absolute Auto 0.3 0.0-0.4 X10*3/u L Basophils Absolute Auto 0.1 0.0-0.2 X10*3/uL NRBC Abs Auto 0.000 0.0-0.012 X10*3/uL Liver Panel Reviewed date:10/27/2023 10:08:10 AM Interpretation: Performing Lab:[facility], [address] [place] [phone] Notes/Report: Bilirubin Total 0.3 0.0-1.0 mg/dL Bilirubin Direct 0.1 0.0-0.5 mg/dL Aspartate Amino Transferase 24 5-31 U/L Alanine Aminotransferase 31 0-31 U/L Total Protein 7.1 6.5-8.0 g/dL Albumin Level 4.2 3.5-5.0 g/dL Alkaline Phosphatase 97 39-117 U/L Lipase Reviewed date:10/27/2023 10:08:04 AM Interpretation: Performing Lab:[facility], [address] [place] [phone] Notes/Report: Lipase 31 8-78 U/L Pathology Reviewed date:11/16/2023 09:27:28 AM Interpretation: Performing Lab:[facility], [address] [place] [phone] Notes/Report: REASON FOR REFERRAL No Information MEDICATIONS Medication SIG (Take, Route, Frequency, Duration) Notes Start Date End Date Status Breo Ellipta 200-25 MCG/ACT Inhalation for 30 Active Allergy 10 MG 1 tablet Orally Once a day for 30 day(s) Active ALPRAZolam prn Active Flomax Active Ondansetron HCl Not- Taking Multi For Her - as directed Orally Active Montelukast Sodium 10 MG Oral for 30 Active Simvastatin 20 MG 1 tablet in the even ing Orally Once a day for 30 day(s) Active Fluticasone Propionate 50 MCG/ACT Nasal for 30 Active Calcium 1 tab Oral for 14 days Active FLUoxetine HCl 20 MG Oral for 90 Active Azithromycin 250 MG Oral for 28 Active PROzac 20 MG 1 capsule Orally Onc e a day for 30 day(s) Active Benzonatate 200 MG Oral for 30 Active Fluconazole 200 MG 1 tablet Orally radha y for 14 days 11/16/2023 Active IMMUNIZATIONS Vaccine Route Administration Date Status Comme nts Influenza Unknown 03/08/2018 Administered Influenza Unknown 02/20/2019 Administered Influenza Unknown 04/13/2022 Administered Influenza Unknown 02/08/2023 Administered SOCIAL HISTORY Tobacco Use: Social History Observation Description Date Details (start date - stop date) Current Smoker NA - NA Sex Assigned At : Social History Observation Description Sex Assigned At Unknown Tobacco Use/Smoking Question Answer Notes Patient is a current smoker How often do you smoke cigarettes? every day How many cigarettes a day do you smoke? 11-20 How soon after you wake up d o you smoke your first cigarette? 6-30 minutes Are you interested in quitting? Thinking about q uitting Alcohol Screen Question Answer Notes Did you have a drink contain ing alcohol in the past year? Yes How often did you have a dri nk containing alcohol in the past year? 4 or more times a week (4 points) How many drinks did you have on a typical day when you were drinking in the past year? 1 or 2 drinks (0 point) How often did you have 6 or more drinks on one occasion in the past year? 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) Active confirmed 509778476 Problem Loco esophagus (K22.70) Active confirmed Loco esophagus (993272135) Problem Other irritable bowel syndrome (K58.8) Active confirmed 51838652 VITAL SIGNS Temperature 98.2 degrees Fahrenheit 10/20/2023 Blood pressure diastolic 00 mm Hg 10/20/2023 Height 64.5 in 10/20/2023 Blood pressure systolic 000 mm Hg 10/20/2023 Weight 148 lbs 10/20/2023 BMI 25.01 kg/m2 10/20/2023 Encounters Encounter Location Date Provider Diagnosis [facility] [place] [facility] [address] [place] [address] [place] [phone] 11/09/2023 Rojelio Lake Jr Colon cancer screening Z12.11 ; Colon polyps K63.5 ; Loco esophagus K22.70 and Abdominal pain, periumbilical R10.33 [facility] [address] [place] [phone] 02/16/2024 Rojelio Lake Jr [facility] [address] [place] [phone] 10/20/2023 Rojelio Lake Jr Periumbilical abdominal pain R10.33 ; 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 K22.70 and Colon cancer screening Z12.11 [facility] [address] [place] [phone] 10/18/2023 Rojelio Lake Jr [facility] [address] [place] [phone] 10/20/2023 Rojelio Lake Jr [facility] [address] [place] [phone] 10/27/2023 Rojelio Lake Jr [facility] [address] [place] [phone] 11/01/2023 Rojelio Lake Jr [facility] [address] [place] [phone] 11/16/2023 Rojelio Lake Jr [facility] [address] [place] [phone] 02/14/2024 Rojelio Lake Jr ASSESSMENTS Encounter Date Diagnosis Assessment Notes Treatment Notes Treatment Clinical Notes 11/09/2023 Colon cancer screening (ICD-10 - Z12.11) 11/09/2023 Colon polyps (ICD-10 - K63.5) 10/20/2023 Periumbilical abdominal pain (ICD-10 - R10.33) 10/20/2023 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 (ICD-10 - K22.70) 11/09/2023 Loco esophagus (ICD-10 - K22.70) 10/20/2023 Colon cancer screening (ICD-10 - Z12.11) Colonoscopy material was printed 11/09/2023 Abdominal pain, periumbilical (ICD-10 - R10.33) PLAN OF TREATMENT Pending Test Test Name Order Date LIVER PROFILE 10/20/2023 LIPASE 10/20/2023 CBC w/o DIFF 10/20/2023 Future Test Test Name Order Date UPPER GI ENDOSCOPY 08/25/2018 COLONOSCOPY 08/25/2018 UPPER GI ENDOSCOPY 10/20/2023 COLONOSCOPY 10/20/2023 Insurance Providers Payer Name Payer Address Payer Phone Subscriber Number Group Number Insured Name Patient Relationship to Insured Coverage Start Date Coverage End Date [employer] [address] [address] [place] [address] [id number] SABINE MEADE Self - patient is the insured MEDICAL (GENERAL) HISTORY Medical History History ICD Code breast cancer x2 anxiety/depression allergic rhinitis frequent urination Loco's esophagus/gastroesophageal ref lux disease Surgical History Surgery Date(Month/Year) mastectomy 2004 lumpectomy 1992 rotator cuff 1994 bladder lift 1991 EGD/colon, no intestinal met aplasia, tubular adenoma x1, five-year EGD/colon followup. 01/08 non invasive back surgery-day surgery
== END 2024-05-21 08:12 | disposition home or self-care (01) ==
LOC: HO.MAMMO 08:11
PROVIDERS: PCP Internal Medicine; Visit Provider Internal Medicine
DX: Z12.31 Encounter for screening mammogram for malignant neoplasm of breast (principal)
CPT/HCPCS: 77063; 77067

== ENCOUNTER → 2024-05-21 08:30 | Outpatient (BNV) | payer MEDICARE, SELFPAY | PROVIDERS: PCP Internal Medicine; Visit Provider Internal Medicine | DX: Z12.31 Encounter for screening mammogram for malignant neoplasm of breast (principal) | CPT/HCPCS: 77063; 77067 ==

== ENCOUNTER 2024-08-30 09:20 | Outpatient (AMB) | payer MEDICARE, SELFPAY ==
[2024-08-30 09:39] VITALS: BP 130/80; PULSE 101; TEMP 36.6; O2SAT 96; BMI 27.1
--- NOTE | 2024-08-30 09:39 | MHC.PC.OV ---
Vital Signs 08/30/24 09:39 Height 5 ft 4 in Weight 158 lb BMI 27.1 BP 130/80 Blood Pressure Location Rt brachial Position Sitting Pulse 101 H Pulse Source Pulse Oximeter Temp 97.9 F Temp Source Axillary Pulse Oximetry (%) 96 Oxygen Delivery Method Room Air Intake Visit Reasons: Routine [employer] Estate Internship Required: No Accompanied by: Self / Same As Patient Allergies amoxicillin [AMOXICILLIN] Allergy (Severe, Verified 08/30/24 09:40) HIVES Sulfa (Sulfonamide Antibiotics) [SULFA (SULFONAMIDE ANTIBIOTICS)] Allergy (Severe, Verified 08/30/24 09:40) HIVES,SWELLING ENVIROMENTAL Allergy (Mild, Uncoded 08/30/24 09:40) NASAL CONGESTION Medication List - Last Reconciled 08/30/24 by Rosa Odonnell MD alprazolam 0.25 mg PO BID PRN atorvastatin 20 mg PO DAILY cetirizine 10 mg PO DAILY PRN fluoxetine 20 mg PO DAILY fluticasone propionate 50 mcg/actuation 2 sprays intranasal DAILY montelukast 10 mg PO BEDTIME simvastatin 10 mg PO BEDTIME Tobacco use date assessed: 08/30/24 Fall risk assessment: No Falls in past year Last assessed Fall Risk: 08/30/24 Dental Screening Dental Screen Date: 08/30/24 Did you have a dental visit in the last 12 months?: Yes Did you have a dental problem in the last 6 months where you did not have access to dental care?: No HPI HPI Comments History of Present Illness Details The patient is a 69 year woman with a past history of tobacco use, COPD, breast cancer x2 status post surgery radiation and chemo presenting to [facility] care. Not seen by PCP in over a year Pulm: [place] [facility] [place] light. stable Anxiety/depression: c/o insomnia especially since stopping tobacco use. needs xanax refill GI: Barretts: EGD 2023. Follows dr Lake Colon cancer screenin10/2023 Mammo 04/2024 ROS see hpi PHYSICAL EXAM: GENERAL: Alert and oriented x 3. NAD EYES: EOMI. Anicteric. HENT: Moist mucous membranes. No scleral icterus. No cervical lymphadenopathy. LUNGS: Clear to auscultation bilaterally. CARDIOVASCULAR: Regular rate and rhythm. No murmur. No JVD. ABDOMEN: Soft, non-tender +bs EXTREMITIES: No edema. Non-tender. SKIN: No rashes or lesions. Warm. NEUROLOGIC: No focal neurological deficits. CN II-XII grossly intact PSYCHIATRIC: Cooperative. Appropriate mood and affect [facility] Medical History History of left breast cancer (~1992) Nicotine dependence, cigarettes, uncomplicated Chronic bronchitis Chronic cough Chronic allergic rhinitis Osteopenia (~2016) GERD (gastroesophageal reflux disease) Hepatic steatosis Diverticulitis Loco's esophagus Basal cell carcinoma Depression Surgical History History of colonoscopy History of esophagogastroduodenoscopy (EGD) History of lumpectomy of left breast (~1992) History of left mastectomy (~2003) History of bilateral breast implants History of hysterectomy (~1997) History of back surgery History of bladder surgery History of rotator cuff surgery History of wisdom tooth extraction Family History Paternal Grandmother Breast cancer Social History Housing: House Alcohol intake: current Alcohol intake frequency: 0-2 drinks per day Patient Tobacco Use Status: Current everyday Tobacco user Cigarette Packs Per Day: 0.75 Cigarettes Per Day: 15 e-Cigarette/Vaping Use: Former Use service: No Current occupational status: employed Sexual orientation: Straight/Heterosexual Gender identity: Female Cognitive needs: No Hearing needs: No Vision needs: Yes (reading glasses) Female Reproductive History Menstrual Age of Menarche: 14 Questionnaire PHQ-9 Over the last 2 weeks, how often have you been bothered by any of the following problems? 1. Little interest or pleasure in doing things: not at all 2. Feeling down, depressed, or hopeless: several days 3. Trouble falling or staying asleep, or sleeping too much: not at all 4. Feeling tired or having little energy: not at all 5. Poor appetite or overeating: not at all 6. Feeling bad about yourself - or that you are a failure or have let yourself or your family down: not at all 7. Trouble concentrating on things, such as reading the newspaper or watching television: not at all 8. Moving or speaking so slowly that other people could have noticed. Or the opposite - being so fidgety or restless that you have been moving around a lot more than usual: not at all 9. Thoughts that you would be better off or of hurting yourself in some way: not at all Total score: 1 Depression Screening Interpretation: Negative Depression Screening Done: Yes 01491 - PHQ-9 Billing: Yes Source: Developed by Drs. Francisco Hammonds, Nadine Beal, Harsha Hernandez and colleagues, with an educational stefanie from [employer]. Thrive Questionnaire Date Thrive assessed: 08/30/24 I am a: Patient Within the past 12 months, did the food you bought not last and you didn't have the money to get more?: Never true Within the past 12 months, did you worry whether your food would run out before you got money to buy more?: Never true Do you have trouble paying for medicines?: No Do you have trouble getting transportation to medical appointments?: No Do you have trouble paying your heating and electricity bill?: No Do you have trouble taking care of your child, family member or friend?: No Do you have trouble with day-to-day activities such as bathing, preparing meals, shopping, managing finances, etc.?: No Are you currently unemployed and looking for a job?: No Are you interested in more education?: No THRIVE Score: 0 AUDIT C Alcohol Use Questionnaire (AUDIT-C) 1. How often do you have a drink containing alcohol?: Monthly or less 2. How many drinks containing alcohol do you have on a typical day when you are drinking?: 1 or 2 3. How often do you have six or more drinks on one occasion?: Less than monthly Total Score: 2 KWASI-7 AMB Questionnaire KWASI-7 Date KAWSI - 7 assessed: 08/30/24 Feeling nervous, anxious, or on edge: 1 = Several days Not being able to stop or control worryin = Not at all Worrying too much about different things: 0 = Not at all Trouble relaxin = Not at all Being so restless that it is hard to sit still: 0 = Not at all Becoming easily annoyed or irritable: 0 = Not at all Feeling afraid as if something awful might happen: 0 = Not at all Total KWASI-7 score (0-4 normal; 5-9 mild; 10-14 moderate; 15-21 severe): 1 Source: Developed by Drs. Francisco Hammonds, Nadine Beal, Harsha Hernandez and colleagues, with an educational stefanie from [employer]. Physical exam (Primary Care) Vital Signs: Last Vital Signs Temp 97.9 F 08/30/24 09:39 Pulse 101 H 08/30/24 09:39 BP 130/80 08/30/24 09:39 Pulse Ox 96 08/30/24 09:39 Oxygen Delivery Method Room Air 08/30/24 09:39 BMI result Body Mass Index 27.1 Tobacco/Smoking Status: Tobacco use Status Tobacco use date assessed 08/30/24 08/30/24 09:42 Patient Tobacco Use Status Current everyday Tobacco 08/30/24 09:42 e-Cigarette/Vaping Use Former Use 08/30/24 09:57 PHQ-9: PHQ-9 Score PHQ-9: Total score 1 08/30/24 18:25 Depression Screening Interpretation: Negative Thrive Assessment: Date of Thrive Assessment Date Thrive assessed 08/30/24 08/30/24 09:42 Coding Level of Care Code New Pt Level 4 (12567) Complex EM visit Add On G2211 Diagnoses Prediabetes R73.03 Recurrent major depressive disorder, in partial remission F33.41 Active/Remission status: in partial remission Depression Type: major depressive disorder Major depression recurrence: recurrent Mixed simple and mucopurulent chronic bronchitis J41.8 Chronic bronchitis type: mixed simple and mucopurulent Osteopenia of multiple sites M85.89 Osteopenia location: multiple sites History of left breast cancer Z85.3 Additional Codes PHQ-9 - 46938 - PHQ-9 Billing: Yes ([id number]) Assessment & Plan Assessment & Plan (1) Prediabetes: Code(s): R73.03 - Prediabetes Category: Medical (2) Depression: Code(s): F32.9 - Major depressive disorder, single episode, unspecified Category: Medical Qualifiers: Active/Remission status: in partial remission Depression Type: major depressive disorder Major depression recurrence: recurrent Qualified Code(s): F33.41 - Major depressive disorder, recurrent, in partial remission (3) Chronic bronchitis: Code(s): J42 - Unspecified chronic bronchitis Category: Medical Qualifiers: Chronic bronchitis type: mixed simple and mucopurulent Qualified Code(s): J41.8 - Mixed simple and mucopurulent chronic bronchitis (4) Osteopenia: Onset Date: ~2016 Comment: (Bone Dexa T-score: -2.1 hip 07/16/2016; -2.3 hip 02/02/2021) Code(s): M85.80 - Other specified disorders of bone density and structure, unspecified site Category: Medical Qualifiers: Osteopenia location: multiple sites Qualified Code(s): M85.89 - Other specified disorders of bone density and structure, multiple sites (5) History of left breast cancer: Onset Date: ~1992 Comment: (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 Panel Today F32.9 - Major depressive disorder, single episode, unspecified, M85.80 - Other specified disorders of bone density and structure, unspecified site, R73.03 - Prediabetes, Z13.228 - Encounter for screening for other metabolic disorders Lipid Panel Today F32.9 - Major depressive disorder, single episode, unspecified, M85.80 - Other specified disorders of bone density and structure, unspecified site, R73.03 - Prediabetes, Z13.228 - Encounter for screening for other metabolic disorders Hemoglobin A1c Today F32.9 - Major depressive disorder, single episode, unspecified, M85.80 - Other specified disorders of bone density and structure, unspecified site, R73.03 - Prediabetes, Z13.228 - Encounter for screening for other metabolic disorders TSH reflex Free T4 Today F32.9 - Major depressive disorder, single episode, unspecified, M85.80 - Other specified disorders of bone density and structure, unspecified site, R73.03 - Prediabetes, Z13.228 - Encounter for screening for other metabolic disorders Complete Blood Count Auto Diff Today F32.9 - Major depressive disorder, single episode, unspecified, M85.80 - Other specified disorders of bone density and structure, unspecified site, R73.03 - Prediabetes, Z13.228 - Encounter for screening for other metabolic disorders Vitamin B12 and Folate Today F32.9 - Major depressive disorder, single episode, unspecified, M85.80 - Other specified disorders of bone density and structure, unspecified site, R73.03 - Prediabetes, Z13.228 - Encounter for screening for other metabolic disorders Medications: New alprazolam 0.25 mg PO BID PRN 60 tabs 1RF anxiety fluoxetine 20 mg PO DAILY 90 caps 3RF simvastatin 10 mg PO BEDTIME 90 tabs 3RF Refilled cetirizine 10 mg PO DAILY PRN 90 ea 3RF for allergies
--- OUTSIDE RECORDS SUMMARY | 2024-08-30 10:10 | XMS_ITS ---
Author Organization [facility] Address [address] [place] [phone] Care Team Providers Care Cardio Tech Name Role Phone Mike Bush MD Primary Care Provider Rojelio Dietrich Jr [phone] REASON FOR VISIT pathology Medications Medication SIG (Take, Route, Fr equency, Duration) Notes Start Date End Date Status Fluconazole 200 MG 1 tablet Orally daily for 14 days 11/16/2023 Active Encounters Encounter Location Date Provider Diagnosis [facility] [address] [place] [phone] 11/16/2023 Rojelio Lake Jr Plan Of Treatment Medication Medication Name Sig Start Date Stop Date Notes Fluconazole 200 MG 1 tablet Orally daily for 14 days 11/15 Progress Notes * BREANA SABINE CDOB:1955 (68 yo F)Acc No.[id number]:11/16/2023 Patient:?SABINE TOUSSAINT :1955???Age:68 Y???Sex:Female Address:[address] [place] [phone] * Refills? Start Fluconazole Tablet, 200 MG, Orally, 14 Tablet, 1 tablet, daily, 14 days, Refills=0 * true * Date:? Generated for Bebe neville/Anushka/eTransmitting on:?08/30/2024 10:10 AM EDT
--- OUTSIDE RECORDS SUMMARY | 2024-08-30 10:10 | XMS_ITS | Patient Health Record ---
Author Organization [facility] Address [address] [place] [address] Care Team Providers Care Sliver Lap Tender Name Role Phone Mike Bush MD Primary Care Provider Rojelio Dietrich Jr Unavailable Allergies Allergen (clinical drug ingredient) Drug/Non Drug Allergy documented on EMR Reaction Allergy Type Onset Date Status seasonal (uncoded) Unknown Allergy A ctive Results Component Value Reference Range Notes Complete Blood Count Auto Di ff Reviewed date:10/27/2023 10:08:16 AM Interpretation: Performing Lab:[facility], [address] [place] [phone] Notes/Report: White Blood Count 6.9 4.8-10.8 X10*3/uL [...] Panel Reviewed date:10/27/2023 10:08:10 AM Interpretation: Performing Lab:[facility], [address] [place] [phone] Notes/Report: Bilirubin Total 0.3 0.0-1.0 mg/dL Bilirubin Direct 0.1 0.0-0.5 mg/dL Aspartate Amino Transferase 24 5-31 U/L Alanine Aminotransferase 31 0-31 U/L Total Protein 7.1 6.5-8.0 g/dL Albumin Level 4.2 3.5-5.0 g/dL Alkaline Phosphatase 97 39-117 U/L Lipase Reviewed date:10/27/2023 10:08:04 AM Interpretation: Performing Lab:[facility], [address] [place] [phone] Notes/Report: Lipase 31 8-78 U/L Pathology Reviewed date:11/16/2023 09:27:28 AM Interpretation: Performing Lab:[facility], [address] [place] [phone] Notes/Report: -- Name: Itzel Marvin Age/Sex: 68/F : 1955 [facility]#: [id number] Unit#: [id number] Attend Dr: Rojelio Lake MD Re11/09/23 Status : [facility] Location: [facility] Disch: -- SPEC : [id number] RECD : 11/10/23-906 STATUS: ROXANNELexie MEDINA NUM: [id number] CAROL: 11/09/23-[address] [facility] [address]: Rojelio Lake MD ENTERED: 11/10/23-02 05 SP TYPE: Surgical OTHR DR: Mike Bush MD ORDERED: HE Stain/9, Gross Micro L4/4, IHC, Special st. 2/2, H. pylori, AB/PAS/2 Diagnosis A. Gastric antrum, b iopsy: Gastric antral mucosa with congestion and focal minimal chronic inactive inf lammation; negative for H pylori, intestinal metaplasia and dysplasia. B. Esophagogastric j unction, biopsy: Squamous mucosa with hyperplasia, spongiosis, focal intraepithelia l neutrophils and eosinophils (up to 2 per high-power field) and fungal hyphae consis tent with Lindsay, consistent with fungal esophagitis, and columnar mucosa with chronic active inflammation and focal intestinal metaplasia; negative for dysplasia (see comment). C. Esophagus, at 30 cm, biopsy: Squamous mucosa with intraepithelial neutrophils and fungal hyphae consis tent with Lindsay, consistent with fungal esophagitis; no columnar mucosa present. D. Colon, at 60 cm, polyp: Tubular adenoma; negative for high-grade dysplasia and carcinoma. Comment: (B): These findings are consistent with Loco?s esophagus if the biopsies were taken from above the anato torri gastroesophageal junction. Clinical and endoscopic correlation is advised. Clinical History Pre-Op Dx: Loco's esophagus, colon cancer screening Post-Op Dx: Gastriti s, Loco's esophagus, colon polyp Microscopic Description Microscopic sections reviewed. Immunostain for H. pylori on A is negative. AB/PAS on A is negative for intesti nal metaplasia. AB/PAS on B is positive for intestinal metaplasia and intraepithelial jared al hyphae. Controls stain appropriately. Material Received A. Antral bx's B. EG junction bx's C. Esophagus bx's @ 30 cm D. Polyp @ 60 cm CONTINUED ON NEXT PAGE -- Name: Itzel Marvin Age/Sex: 68/F : 1955 Unit#: [id number] Attend Dr: Rojelio Lake MD Re11/09/23 Status : [facility] Location: [facility] Disch: -- SPEC : [id number] RECD : 11/10/23 STATUS: TIFFANIE MEDINA NUM: [id number] CAROL: 11/09/23-[address] [facility] [address]: Rojelio Lake MD ENTERED: 11/10/23-02 05 SP TYPE: Surgical OTHR DR: Mike Bush MD ORDERED: HE Stain/9, Gross Micro L4/4, IHC, Special st. 2/2, H. pylori, AB/PAS/2 Gross Description Received in four parts. Part A: Received in formalin labeled ?antral bx's? are 2 mustafa irregular tissue fragments measuring 0.15 and 0 .25 cm, submitted in toto in a cassette labeled A. Part B: Received in formalin labeled ?EG junction bx's? are 5 mustafa irregular and rectangular tissue fragments ran ging from minute to 0.5 cm, submitted in toto in a cassette labeled B. Part C: Received in formalin labeled esophagus bx's at 30 cm? are 2 pale, matta-white irregular and rectan gular tissue fragments measuring 0.3 and 0.45 cm, submitted in toto in a cassette labeled C. Part D: Received in formalin labeled ?polyp at 60 cm? along with scant mucus and debris are a few minute to 0.35 cm mustafa irregular tissue fragments, submitted in toto in a cassette labeled D. CEDS Special studies orde red and performed: Immunostain for H. pylori on A1; AB/PAS stains on A1 and B1. Copies To: Rojelio Lake MD [address] [place] [address] [address] [place] [address] Mike Bush MD [address] [place] [address], [address] [address] -- Signed (si gnature on file) Perla Mckeon 11/11/23 1435 -- END OF REPORT Reason For Referral No Information Medications Medication SIG (Take, Route, Frequency, Duration) Notes [...] radha y for 14 days 11/16/2023 Active Immunizations Vaccine Route Administration Date Status Comme nts Influenza Unknown 03/08/2018 Administered Influenza Unknown 02/20/2019 Administered Influenza Unknown 04/13/2022 Administered Influenza Unknown 02/08/2023 Administered Social History Tobacco Use: Social History Observation Description Date Details (start date - stop date) Current Smoker NA - NA Tobacco Use/Smoking Question Answer Notes Patient is [...] Never (0 point) Points 4 Interpretation Positive Problems Problem Type SNOMED Code ICD Code Onset Dates Problem Status W/U Status Risk Notes Problem 066383895 Colon cancer screening (Z12.11) Active confirmed Problem 7593333 Diverticulitis o f large intestine without perforation or abscess without bleeding (K57.32) Active confirmed Problem 789383797 Periumbilical abdominal pain (R10.33) Active confirmed Problem 834220274 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) Active confirmed Problem Loco esophagus (983846655) Loco esophagus (K22.70) Active confirmed Problem 21120596 Other irritable bowel syndrome (K58.8) Active confirmed Vital Signs Temperature 98.2 degrees Fahrenheit 10/20/2023 Blood pressure diastolic 00 mm Hg 10/20/2023 Height 64.5 in 10/20/2023 Blood pressure systolic 000 mm Hg 10/20/2023 Weight 148 lbs 10/20/2023 BMI 25.01 kg/m2 10/20/2023 Encounters Encounter Location Date Provider Diagnosis [facility] Outpatient [address] [place] [phone] 11/09/2023 Rojelio Lake Jr Colon cancer screening Z12.11 ; Colon polyps K63.5 ; Loco esophagus K22.70 and Abdominal pain, periumbilical R10.33 [facility] [address] [place] [phone] 10/20/2023 Rojelio Lake Jr Periumbilical abdominal pain R10.33 ; 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 K22.70 and Colon cancer screening Z12.11 [facility] [address] [place] [phone] 10/18/2023 Rojelio Lake Jr [facility] [address] [place] [phone] 10/20/2023 Rojelio Lake Jr [facility] [address] [place] [phone] 10/27/2023 Rojelio Lake Jr [facility] [address] [place] [phone] 11/01/2023 Rojelio Lake Jr [facility] [address] [place] [phone] 11/16/2023 Rojelio Lake Jr [facility] [address] [place] [phone] 02/14/2024 Rojelio Lake Jr Assessments Encounter Date Diagnosis (ICD Code) Assessment Notes Treatment Notes Treatment Clinical Notes Section Notes 11/09/2023 Colon cancer screening (ICD-10 - Z12.11) 11/09/2023 Colon polyps (ICD-10 - K63.5) 10/20/2023 Periumbilical abdominal pain (ICD-10 - R10.33) We discussed her symptoms today. We recommended further evaluation with lab work. Followup colonoscopy and endoscopy will be arranged. She is aware of risks and benefits and agrees to proceed. 10/20/2023 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 (ICD-10 - K22.70) We discussed her symptoms today. We recommended further evaluation with lab work. Followup colonoscopy and endoscopy will be arranged. She is aware of risks and benefits and agrees to proceed. 11/09/2023 Loco esophagus (ICD-10 - K22.70) 10/20/2023 Colon cancer screening (ICD-10 - Z12.11) Colonoscopy material was printed We discussed her symptoms today. We recommended further evaluation with lab work. Followup colonoscopy and endoscopy will be arranged. She is aware of risks and benefits and agrees to proceed. 11/09/2023 Abdominal pain, periumbilical (ICD-10 - R10.33) Plan Of Treatment Pending Test Test Name Order Date LIVER PROFILE 10/20/2023 LIPASE 10/20/2023 CBC w/o DIFF 10/20/2023 Future Test Test Name Order Date UPPER GI ENDOSCOPY 08/25/2018 COLONOSCOPY 08/25/2018 UPPER GI ENDOSCOPY 10/20/2023 COLONOSCOPY 10/20/2023 Insurance Providers Payer Name Payer Address Payer Phone Subscriber Number Group Number Insured Name Patient Relationship to Insured Coverage Start Date Coverage End Date [employer] [place] [address] [address] [place] [address] [id number] SABINE MEADE Self - patient is the insured Medical (General) History Medical History History ICD Code breast cancer x2 anxiety/depression allergic rhinitis frequent urination Loco's esophagus/gastroesophageal ref lux disease Surgical History Surgery Date(Month/Year) mastectomy 2004 lumpectomy 1992 rotator cuff 1994 bladder lift 1991 EGD/colon, no intestinal met aplasia, tubular adenoma x1, five-year EGD/colon followup. 01/08 non invasive back surgery-day surgery
== END 2024-08-30 10:27 | disposition home or self-care (01) ==
LOC: HO.HMCHD 09:21
PROVIDERS: PCP Internal Medicine; Visit Provider Internal Medicine
DX: R73.03 Prediabetes (principal); F33.41 Major depressive disorder, recurrent, in partial remission; J41.8 Mixed simple and mucopurulent chronic bronchitis; M85.89 Other specified disorders of bone density and structure, multiple sites; Z85.3 Personal history of malignant neoplasm of breast

== ENCOUNTER → 2024-08-30 09:20 | Outpatient (BNVA) | payer MEDICARE, SELFPAY | PROVIDERS: PCP Internal Medicine; Visit Provider Internal Medicine | DX: R73.03 Prediabetes (principal); F33.41 Major depressive disorder, recurrent, in partial remission; J41.8 Mixed simple and mucopurulent chronic bronchitis; M85.89 Other specified disorders of bone density and structure, multiple sites; Z85.3 Personal history of malignant neoplasm of breast; Z87.891 Personal history of nicotine dependence | CPT/HCPCS: 96127; 99202 ==

== ENCOUNTER 2024-09-18 11:22 | Outpatient (REF) | payer MEDICARE, SELFPAY ==
[2024-09-18 12:58] LABS: Influenza A PCR NEGATIVE (Negative); Influenza B PCR NEGATIVE (Negative); Resp Syncy Virus RNA Qual PCR NEGATIVE (Negative); SARS COV2 PCR INHOUSE NEGATIVE (Negative)
== END 2024-09-18 11:23 | disposition home or self-care (01) ==
LOC: HO.LNP 11:22
PROVIDERS: PCP Internal Medicine; Visit Provider Hospitalist
DX: R50.9 Fever, unspecified (principal); J41.8 Mixed simple and mucopurulent chronic bronchitis; F17.210 Nicotine dependence, cigarettes, uncomplicated
CPT/HCPCS: 0241U; 99212

== ENCOUNTER 2024-09-18 11:22 | Outpatient (AMB) | payer MEDICARE, SELFPAY ==
--- NOTE | 2024-09-18 11:30 | A.OFFVIS_ITS ---
Vital Signs 09/18/24 11:32 Height 5 ft 4 in Weight 157 lb 10.088 oz BMI 27.1 BP 140/88 H Blood Pressure Location Rt brachial Position Sitting Pulse 88 Pulse Source Pulse Oximeter Pulse Oximetry (%) 97 Oxygen Delivery Method Room Air Intake Visit Reasons: barky cough Allergies amoxicillin [AMOXICILLIN] Allergy (Severe, Verified 09/18/24 11:35) HIVES Sulfa (Sulfonamide Antibiotics) [SULFA (SULFONAMIDE ANTIBIOTICS)] Allergy (Severe, Verified 09/18/24 11:35) HIVES,SWELLING ENVIROMENTAL Allergy (Mild, Uncoded 09/18/24 11:35) NASAL CONGESTION HPI Comments Details: The patient is a 69 year woman with a known history of tobacco dependency in addition to breast cancer x2 status post surgery radiation and chemo. She has been cancer free now for close to 20 years. The patient has been complaining of worsening cough. Usually is productive in nature typically in the morning. Moderate severity. She does have significant allergies and she attributes the cough primarily due to her significant postnasal drip. She has tried multiple allergy medications with no significant improvement. The patient has not had an y recent allergy testing. She did have a chest x-ray back in 2020 personally by me demonstrating some degree of hyperinflation. The patient has not had any more imaging studies and she has not had any recent pulmonary function studies to review. Unfortunately she is still smoking. She is wondering about quitting specially in the winter months because she does not want to go outside in the cold weather. She was able to quit before with the help of nicotine patches and also quit cold turkey. She recently was placed on antidepressive agents so therefore Chantix may be problematic. In addition to that she has had a bad reaction to Wellbutrin. On examination she definitely has significant nasal congestion and inflammation of the turbinates. Patient also has evidence of coarse breath sounds at the right base suggesting some degree of chest congestion which is asymmetric from the left hemithorax. Therefore would be reasonable to treat her for lower respiratory infection. 10/06/2023 the patient is here for pulmonary sick visit. He she states that she has been coughing now regularly for the last few months. Moderate severity. Typically worse in the morning. Is able to expectorate some dark phlegm in the morning although she is smoking also drinking coffee. She did try to cut down the smoking although she has had hard time. She has not started the Chantix. She has been concerned about potential adverse effects. Although we did talk about considering a lower dose of Chantix. She is going to think about it. In the meantime the patient continues to complain of cough. We did review her last CT scan of the chest. This is done back in April 2023. Was considered a rads 3. She has the 6-7 mm nodule and requires a CT scan in 6 months. In addition to that they mentioned something about capsulitis of her breast prosthesis. She did have breast cancer in the past in the left side and she does get some irritation. 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 12/12/2023 the patient is here for a pulmonary follow-up visit. The patient overall is doing okay. She did have a CT scan as part of the lung cancer screening program. We did review together. Unfortunately, has not been officially read he has not yet. It appears that the right upper lobe pulmonary nodules not changed still measuring around 7 mm in size. Patient also has a l ittle bit of emphysema and some calcifications of the coronary artery major vessels. She is aware of this. She knows she needs to quit smoking. I did send her the patch in order for her to start working on the smoking cessation which should improve important for her. She continues use her respiratory therapy with good effect. Will plan to follow-up in 6-8 months. The patient has any difficulties prior to that she will call for an earlier assessment. Also, went for the final read on the CT scan hopeful that is similar to my reading if not already know if any other incidental findings. 09/18/2024 the patient is here for sick visit. She had been sick now for about a week. She has had some low-grade fevers headaches sinus pressure cough chest congestion. She has been having hard time sleeping because of the coughing the difficulty with the headaches symptoms. She was exposed to a sick contact with her [place] son was sick during . The patient did have a swab done for flu RSV and COVID. In the meantime will go ahead and treat her for sinusitis and tracheitis. She does have a croupy cough. She did quit smoking which is reassuring. She does not need any prednisone at this time. If she is not better by she is going to call for further optimization of therapy. [facility] Medical History History of left breast cancer (~1992) Nicotine dependence, cigarettes, uncomplicated Chronic bronchitis Chronic cough Chronic allergic rhinitis Osteopenia (~2016) GERD (gastroesophageal reflux disease) Hepatic steatosis Diverticulitis Loco's esophagus Basal cell carcinoma Depression Surgical History History of colonoscopy History of esophagogastroduodenoscopy (EGD) History of lumpectomy of left breast (~1992) History of left mastectomy (~2003) History of bilateral breast implants History of hysterectomy (~1997) History of back surgery History of bladder surgery History of rotator cuff surgery History of wisdom tooth extraction Family History Paternal Grandmother Breast cancer Social History Housing: House Alcohol intake: current Alcohol intake frequency: 0-2 drinks per day Patient Tobacco Use Status: Current everyday Tobacco user Cigarette Packs Per Day: 0.75 Cigarettes Per Day: 15 e-Cigarette/Vaping Use: Former Use service: No Current occupational status: employed Sexual orientation: Straight/Heterosexual Gender identity: Female Cognitive needs: No Hearing needs: No Vision needs: Yes (reading glasses) Female Reproductive History Menstrual Age of Menarche: 14 Review of Systems Const Reports body aches, Reports chills, Reports fatigue and Reports fever(s) ENT Reports nasal congestion, Reports nasal discharge, Reports nasal obstruction, Reports post nasal drip and Reports sinus pressure Card Denies chest pain, Denies dyspnea and Reports dyspnea on exertion Resp Reports change in phlegm color, Reports chest congestion, Reports cough, Denies hemoptysis, Denies dyspnea and Reports dyspnea on exertion GI Denies abdominal pain Denies hematuria Musc Denies back pain and Denies limited range of motion Skin/Breast Denies rash Neuro Denies focal weakness and Denies convulsions Psych Denies depression and Denies mood swings Endo Reports fatigue and Denies flushing Dioni/Lymph Denies easy bruising and Denies lymphadenopathy Aller/Immun Reports seasonal rhinorrhea Physical Exam Vital Signs: Last Vital Signs Pulse 88 09/18/24 11:32 BP 140/88 H 09/18/24 11:32 Pulse Ox 97 09/18/24 11:32 Oxygen Delivery Method Room Air 09/18/24 11:32 BMI result Body Mass Index 27.1 Const General: alert Orientation/consciousness: patient oriented x3 HEENT Head: Yes normal to inspection General nose exam: Abnormal mucous membranes and turbinates present erythematous Eyes General: appearance normal, both eyes and all related structures Neck Neck: Yes normal visual inspection Chest Other: bilateral implants and scaring Chest palpation & inspection: normal inspection of the chest Resp Effort & Inspection: normal respiratory effort Auscultation: no crackles, no rales, no wheezes and diminished lung sounds Cardio Rate: regular rate Rhythm: regular rhythm Heart sounds: S1 normal heart sound present and S2 normal heart sound present GI Palpation (GI): Soft to palpation (to palpation) Other: sebaceous glands in labia fold;normal Skin General skin exam: no rashes or lesions noted Neuro General: patient oriented x3 Cognition (Neuro): normal cognition Extrem General: Yes no clubbing, cyanosis or edema Psych Attitude: cooperative Thought process: Normal thought process present Thought content: Normal thought content present Assessment & Plan Assessment & Plan (1) Chronic bronchitis: Code(s): J42 - Unspecified chronic bronchitis Category: Medical Qualifiers: Chronic bronchitis type: mixed simple and mucopurulent Qualified Code(s): J41.8 - Mixed simple and mucopurulent chronic bronchitis (2) Smoking: Code(s): F17.200 - Nicotine dependence, unspecified, uncomplicated Category: Medical (3) Chronic cough: Code(s): R05.3 - Chronic cough Category: Medical (4) Chronic allergic rhinitis: Code(s): J30.9 - Allergic rhinitis, unspecified Category: Medical (5) Tracheobronchitis: Code(s): J40 - Bronchitis, not specified as acute or chronic Category: Medical Plan RSV/FLU/COVID negative start Zythromax cough medicine consider medrol pk if no better Breo 200 daily [address] as needed CT chest LDCT F/U 6-8 months Orders: Orders SARS-CoV2/FLU/RSV Today R50.9 - Fever, unspecified Medications: New benzonatate 200 mg PO BID PRN 60 caps 0RF cough 30 days azithromycin 500 mg PO DAILY 5 tabs 0RF 5 days Coding Level of Care Code Est Pt Level 4 (60505) Diagnoses Mixed simple and mucopurulent chronic bronchitis J41.8 Chronic bronchitis type: mixed simple and mucopurulent Smoking F17.200 Chronic cough R05.3 Chronic allergic rhinitis J30.9 Tracheobronchitis J40 Time Spent (min) 16
[2024-09-18 11:32] VITALS: BP 140/88; PULSE 88; O2SAT 97; BMI 27.1
== END 2024-09-18 13:50 | disposition home or self-care (01) ==
LOC: HO.HPS 11:22
PROVIDERS: PCP Internal Medicine; Visit Provider Hospitalist
DX: J41.8 Mixed simple and mucopurulent chronic bronchitis (principal); F17.200 Nicotine dependence, unspecified, uncomplicated; R05.3 Chronic cough; J30.9 Allergic rhinitis, unspecified; J40 Bronchitis, not specified as acute or chronic
CPT/HCPCS: 99214

== ENCOUNTER 2024-10-09 07:03 | Outpatient (REF) | payer MEDICARE, SELFPAY ==
--- OUTSIDE RECORDS SUMMARY | 2024-10-09 07:05 | XMS_ITS ---
Author Organization [facility] Address [address] [place] [phone] Care Team Providers Care Inoculator Name Role Phone Mike Bush MD Primary Care Provider Rojelio Dietrich Jr Unavailable REASON FOR VISIT cancelled appt Encounters Encounter Location Date Provider Diagnosis [facility] [address] [facility] ([place] [place]) [address] [place] [phone] 02/14/2024 Rojelio Lake Jr Plan Of Treatment No Information Progress Notes * SABINE TOUSSAINT CDOB:1955 (68 yo F)Acc No.[id number]:02/14/2024 Patient:?GALDINODARRON SABINE Anaya :1955???Age:68 Y???Sex:Female Address:[address] [place] [phone] * true * Date:? Generated for Indioi kelin/Anushka/eTransmitting on:?10/09/2024 07:05 AM EDT
--- OUTSIDE RECORDS SUMMARY | 2024-10-09 07:05 | XMS_ITS | Patient Health Record ---
Author Organization [facility] Address [address] [place] [address] Care Team Providers Care Lead Mechanical Engineer Name Role Phone Mike Bush MD Primary Care Provider Rojelio Dietrich Jr Unavailable Allergies Allergen (clinical drug ingredient) Drug/Non Drug Allergy documented on EMR Reaction Allergy Type Onset Date Status seasonal (uncoded) Unknown Allergy A ctive Results Component Value Reference Range Notes Complete Blood Count Auto Di ff Reviewed date:10/27/2023 10:08:16 AM Interpretation: Performing Lab:[facility], [address] [place] [phone] Notes/Report: White Blood Count 6.9 4.8-10.8 X10*3/uL [...] Panel Reviewed date:10/27/2023 10:08:10 AM Interpretation: Performing Lab:[facility], [address] [place] [phone] Notes/Report: Bilirubin Total 0.3 0.0-1.0 mg/dL Bilirubin Direct 0.1 0.0-0.5 mg/dL Aspartate Amino Transferase 24 5-31 U/L Alanine Aminotransferase 31 0-31 U/L Total Protein 7.1 6.5-8.0 g/dL Albumin Level 4.2 3.5-5.0 g/dL Alkaline Phosphatase 97 39-117 U/L Lipase Reviewed date:10/27/2023 10:08:04 AM Interpretation: Performing Lab:[facility], [address] [place] [phone] Notes/Report: Lipase 31 8-78 U/L Pathology Reviewed date:11/16/2023 09:27:28 AM Interpretation: Performing Lab:[facility], [address] [place] [phone] Notes/Report: -- Name: Itzel Marvin Age/Sex: 68/F : 1955 [facility]#: [id number] Unit#: [id number] Attend Dr: Rojelio Lake MD Re11/09/23 Status : [facility] Location: [facility] Disch: -- SPEC : [id number] RECD : 11/10/23-906 STATUS: ROXANNELexie MEDINA NUM: [id number] CAROL: 11/09/23-[address] [facility] [address]: Rojelio Lake MD ENTERED: 11/10/23-02 05 [...] Itzel Marvin Age/Sex: 68/F : 1955 Unit#: [id number] Attend Dr: Rojelio Lake MD Re11/09/23 Status : [facility] Location: [facility] Disch: -- SPEC : [id number] RECD : 11/10/23 STATUS: TIFFANIE MEDINA NUM: [id number] CAROL: 11/09/23-[address] [facility] [address]: Rojelio Lake MD ENTERED: 11/10/23-02 05 [...] and B1. Copies To: Rojelio Lake MD [address] [place] [address] [address] [place] [address] Mike Bush MD [address] [place] [address], [address] [address] -- Signed (si gnature on file) Perla [...] Problem Status W/U Status Risk Notes Problem 893325650 Colon cancer screening (Z12.11) Active confirmed Problem 4438458 Diverticulitis o f large intestine without perforation or abscess without bleeding (K57.32) Active confirmed Problem 044247585 Periumbilical abdominal pain (R10.33) Active confirmed Problem 435429823 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) Active confirmed Problem Loco esophagus (672112949) Loco esophagus (K22.70) Active confirmed Problem 40703935 Other irritable bowel syndrome (K58.8) Active confirmed Vital Signs Temperature 98.2 degrees Fahrenheit 10/20/2023 Blood pressure diastolic 00 mm Hg 10/20/2023 Height 64.5 in 10/20/2023 Blood pressure systolic 000 mm Hg 10/20/2023 Weight 148 lbs 10/20/2023 BMI 25.01 kg/m2 10/20/2023 Encounters Encounter Location Date Provider Diagnosis [facility] Outpatient [address] [place] [id number] 11/09/2023 Rojelio Lake Jr Colon cancer screening Z12.11 ; Colon polyps K63.5 ; Loco esophagus K22.70 and Abdominal pain, periumbilical R10.33 [facility] [address] [place] [phone] 10/20/2023 Rojelio Lake Jr Periumbilical abdominal pain R10.33 ; 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 K22.70 and Colon cancer screening Z12.11 [facility] [address] [place] [phone] 10/18/2023 Rojelio Lake Jr [facility] [address] [place] [phone] 10/20/2023 Rojelio Lake Jr [facility] [address] [place] [phone] 10/27/2023 Rojelio Lake Jr [facility] [address] [place] [phone] 11/01/2023 Rojelio Lake Jr [facility] [address] [place] [phone] 11/16/2023 Rojelio Lake Jr [facility] [address] [place] [phone] 02/14/2024 Rojelio Lake Jr Assessments Encounter Date [...] Coverage End Date [employer] [address] [address] [place] [address] [id number] SABINE MEADE Self - patient is [...]
--- OUTSIDE RECORDS SUMMARY | 2024-10-09 07:05 | XMS_ITS ---
Author Organization [facility] Address [address] [place] [phone] Care Team Providers Care Circuit Court Judge Name Role Phone Mike Bush MD Primary Care Provider Rojelio Dietrich Jr REASON FOR VISIT pathology Medications Medication SIG (Take, Route, Fr equency, Duration) Notes Start Date End Date Status Fluconazole 200 MG 1 tablet Orally daily for 14 days 11/16/2023 Active Encounters Encounter Location Date Provider Diagnosis [facility] [address] [place] [phone] 11/16/2023 Rojelio Lake Jr Plan Of Treatment Medication Medication Name Sig Start Date Stop Date Notes Fluconazole 200 MG 1 tablet Orally daily for 14 days 11/15 Progress Notes * BREANA SABINE CDOB:1955 (68 yo F)Acc No.[id number]:11/16/2023 Patient:?SABINE TOUSSAINT :1955???Age:68 Y???Sex:Female Address:[address] [place] [address] * Refills? Start Fluconazole Tablet, 200 MG, Orally, 14 Tablet, 1 tablet, daily, 14 days, Refills=0 * true * Date:? Generated for Bebe neville/Herveg/eTransmitting on:?10/09/2024 07:05 AM EDT
--- OUTSIDE RECORDS SUMMARY | 2024-10-09 07:05 | XMS_ITS ---
Author Organization [facility] Address [address] [place] [phone] Care Team Providers Care Cattle Brander Name Role Phone Mike Bush MD Primary Care Provider Rojelio Dietrich Jr Unavailable [phone] REASON FOR VISIT Patient presents today for barretts esophagus Encounters Encounter Location Date Provider Diagnosis [facility] [address] [facility] [address] [place] [phone] 02/16/2024 Rojelio Lake Jr Plan Of Treatment No Information Progress Notes * SABINE TOUSSAINT CDOB:1955 (69 yo F)Acc No.[id number]:02/16/2024 Progress Notes Patient:?SABINE TOUSSAINT Provider:?Rojelio Lake MD :1955???Age:68 Y???Sex:Female D ate:02/16/2024 Address:[address] [place], [place] [id number] Pcp:Mike Bush MD Subjective: * Chief Complaints: * ???1. Patient presents today for barretts esophagus. * Medical History:? Objective: * Vitals:? Assessment: Plan: * Treatment: * * The named appointment provid er may or may not be the originator of this progress note, and it is not deemed complete until electronically signed by the appointment provider. Sign off status: Pending * Provider:?Rojelio Lake MD Date:?0 02/16/2024 Generated for Bebe neville/Anushka/eTransmitting on:?10/09/2024 07:05 AM EDT
[2024-10-09 07:15] LABS: MANUAL DIFF FLAG NO
[2024-10-09 07:46] LABS: Basophils Absolute Auto 0.1 X10*3/uL (0.0-0.2); Eosinophils Absolute Auto 0.2 X10*3/uL (0.0-0.4); Eosinophils Percent Auto 2.7 % (0-4); Hematocrit 45.9 % (37.0-47.0); Imm Gran Abs Auto 0.05 X10*3/uL (0.00-0.03); Imm Gran Pct Auto 0.8 % (0.0-0.4); Lymphocytes Absolute Auto 1.6 X10*3/uL (1.2-4.9); Lymphocytes Percent Auto 25.5 % (20-40); Mean Corpuscular HGB Conc 32.7 g/dl (31.0-35.0); Mean Corpuscular Hemoglobin 32.7 pg (27.0-33.0); Monocytes Absolute Auto 0.7 X10*3/uL (0.1-1.2); Monocytes Percent Auto 11.6 % (2-11); Neutrophils Absolute Auto 3.7 x10*3/uL (2.0-8.3); Neutrophils Percent Auto 58.4 % (45-73); Platelet Count 280 X10*3/uL (160-400); Red Blood Count 4.59 X10*6/uL (4.20-5.50); White Blood Count 6.3 X10*3/uL (4.8-10.8)
[2024-10-09 07:59] LABS: Estimated Average Glucose 117 mg/dL; Hemoglobin A1C 151.5962 umol/L; Hemoglobin A1c % 5.7 % (<6.0); Total Hemoglobin (HGBA1C) 3955.9684 umol/L
[2024-10-09 08:21] LABS: Alanine Aminotransferase 36 U/L (0-31); Albumin Level 4.2 g/dL (3.5-5.0); Alkaline Phosphatase 103 U/L (39-117); Anion Gap 11 (12-20); Aspartate Amino Transferase 33 U/L (5-31); Bilirubin Total 0.4 mg/dL (0.0-1.0); Blood Urea Nitrogen 12 mg/dL (9-16); Calcium 9.9 mg/dL (8.4-10.2); Carbon Dioxide 28 mmol/L (22-29); Chloride 102 mmol/L (96-108); Cholesterol 183 mg/dL (<200); Estimated Glomerular Filt Rate > 60; Glucose Random 110 mg/dL (60-115); HDL Cholesterol 68 mg/dL (>40); LDL Cholesterol Calculated 96 mg/dL (<100); Potassium 4.1 mmol/L (3.3-5.1); Sodium 137 mmol/L (135-145); Total Protein 7.2 g/dL (6.5-8.0); Triglycerides 97 mg/dL (<150)
[2024-10-09 08:37] LABS: TSH reflex Free T4 1.89 uIU/mL (0.32-4.0)
[2024-10-09 08:51] LABS: Folate 11.4 ng/mL (> or = 4.0); Vitamin B12 514 pg/mL (200-900)
== END 2024-10-09 07:04 | disposition home or self-care (01) ==
LOC: HO.LAB 07:03
PROVIDERS: PCP Internal Medicine; Visit Provider Internal Medicine
DX: R73.03 Prediabetes (principal); F32.9 Major depressive disorder, single episode, unspecified; M85.80 Other specified disorders of bone density and structure, unspecified site; Z13.228 Encounter for screening for other metabolic disorders
CPT/HCPCS: 36415; 80053; 80061; 82607; 82746; 83036; 84443; 85025

== ENCOUNTER 2024-10-10 11:14 | Outpatient (AMB) | payer MEDICARE, SELFPAY ==
--- NOTE | 2024-10-10 11:15 | MHC.OFFVIS ---
Vital Signs 10/10/24 11:24 Height 5 ft 4 in Weight 158 lb BMI 27.1 BP 155/89 H Blood Pressure Location Rt brachial Position Sitting Pulse 93 Intake Visit Reasons: umbilical hernia Intake Note: Patient called and scheduled today's appointment concerned with Umbilical hernia. Patient c/o: abdominal bulge that gets irritated when bending down. Small BM. Hx of Diverticulitis. Quit smoking May 2024. Policyholder Information Clerk Required: No Accompanied by: Self / Same As Patient Allergies amoxicillin [AMOXICILLIN] Allergy (Severe, Verified 10/10/24 11:22) HIVES Sulfa (Sulfonamide Antibiotics) [SULFA (SULFONAMIDE ANTIBIOTICS)] Allergy (Severe, Verified 10/10/24 11:22) HIVES,SWELLING ENVIROMENTAL Allergy (Mild, Uncoded 10/10/24 11:22) NASAL CONGESTION Medication List - Last Reconciled 10/10/24 by Mike Haro MD alprazolam 0.25 mg PO BID PRN benzonatate 200 mg PO BID PRN 30 days cetirizine 10 mg PO DAILY PRN cholecalciferol (vitamin D3) 20 mcg PO DAILY fluoxetine 20 mg PO DAILY fluticasone propionate 50 mcg/actuation 2 sprays intranasal DAILY montelukast 10 mg PO BEDTIME simvastatin 10 mg PO BEDTIME HPI HPI umbilical hernia: Details: [age] year old female referred for an umbilical hernia. She says she has had this reducible lump on her umbilicus for more than 10 years now. She says that this has been starting to bother her with discomfort. She is also concerned that the hernia seems to be increasing in size. She also describes some occasional bloating although I did tell her that this is unlikely to be related to her hernia. [facility] Medical History Umbilical hernia History of left breast cancer (~1992) Nicotine dependence, cigarettes, uncomplicated Chronic bronchitis Chronic cough Chronic allergic rhinitis Osteopenia (~2016) GERD (gastroesophageal reflux disease) Hepatic steatosis Diverticulitis Loco's esophagus Basal cell carcinoma Depression Surgical History History of esophagogastroduodenoscopy (EGD) History of colonoscopy History of wisdom tooth extraction History of rotator cuff surgery History of left mastectomy (~2003) History of bilateral breast implants History of back surgery History of bladder surgery History of hysterectomy (~1997) History of lumpectomy of left breast (~1992) Family History Paternal Grandmother Breast cancer Social History Housing: House Alcohol intake: current Alcohol intake frequency: 0-2 drinks per day Patient Tobacco Use Status: Current everyday Tobacco user Cigarette Packs Per Day: 0.75 Cigarettes Per Day: 15 e-Cigarette/Vaping Use: Former Use service: No Current occupational status: employed Sexual orientation: Straight/Heterosexual Gender identity: Female Cognitive needs: No Hearing needs: No Vision needs: Yes (reading glasses) Female Reproductive History Menstrual Age of Menarche: 14 Review of Systems Const Denies chills and Denies fever(s) Card Denies chest pain, Denies dyspnea and Denies dyspnea on exertion Resp Denies cough, Denies dyspnea and Denies dyspnea on exertion GI Denies hematochezia and Denies change in bowel habits Denies hematuria Musc Denies back pain and Denies limited range of motion Neuro Denies focal weakness and Denies convulsions Psych Denies depression and Denies mood swings Physical Exam Const General: comfortable and no acute distress Orientation/consciousness: patient oriented x3 Neck Neck: Yes no lymphadenopathy Resp Auscultation: clear to auscultation bilaterally Cardio Rhythm: regular rhythm GI Other: Umbilical hernia, reducible, about 1.5 cm, nontender Palpation (GI): Soft to palpation, nontender and no guarding Neuro General: patient oriented x3 Assessment & Plan Assessment & Plan (1) Umbilical hernia: Code(s): K42.9 - Umbilical hernia without obstruction or gangrene Category: Medical Plan She has had this reducible umbilical hernia for years but this has been starting to bother her with discomfort. She wants this repaired. I explained the technique of repair with the possible mesh placement. I reviewed the risks including but not limited to bleeding, infections, bowel injury, recurrence, postop pain, as well as the benefits and alternatives. I reviewed with her what to expect postoperatively. She has given consent. Coding Level of Care Code Est Pt Level 3 (50061) Diagnoses Umbilical hernia K42.9
[2024-10-10 11:24] VITALS: BP 155/89; PULSE 93; BMI 27.1
--- OUTSIDE RECORDS SUMMARY | 2024-10-10 12:33 | XMS_ITS ---
Author Organization [facility] Address [address] [place] [phone] Care Team Providers Care Therapeutic Recreation Assistant Name Role Phone Mike Bush MD Primary Care Provider Rojelio Dietrich Jr Unavailable REASON FOR VISIT cancelled appt Encounters Encounter Location Date Provider Diagnosis [facility] [address] [place] [phone] 02/14/2024 Rojelio Lake Jr Plan Of Treatment No Information Progress Notes * SABINE TOUSSAINT CDOB:1955 (68 yo F)Acc No.[id number]:02/14/2024 Patient:?GALDINODARRON SABINE Jaclyn :1955???Age:68 Y???Sex:Female Address:[address] [place] [phone] * true * Date:? Generated for Indioi kelin/Anushka/eTransmitting on:?10/10/2024 12:33 PM EDT
--- OUTSIDE RECORDS SUMMARY | 2024-10-10 12:33 | XMS_ITS ---
Author Organization [facility] Address [address] [place] [phone] Care Team Providers Care Graduate Student Name Role Phone Mike Bush MD Primary Care Provider Rojelio Dietrich Jr Unavailable REASON FOR VISIT Patient presents today for barretts esophagus Encounters Encounter Location Date Provider Diagnosis [facility] [address] [facility] [address] [place] [phone] 02/16/2024 Rojelio Lake Jr Plan Of Treatment No Information Progress Notes * SABINE TOUSSAINT CDOB:1955 (69 yo F)Acc No.[id number]:02/16/2024 Progress Notes Patient:?SABINE TOUSSAINT Provider:?Rojelio Lake MD :1955???Age:68 Y???Sex:Female D ate:02/16/2024 Address:[address] [place], [place] [phone] Pcp:Mike Bush MD Subjective: * Chief Complaints: [...] MD Date:?0 02/16/2024 Generated for Bebe neville/Anushka/eTransmitting on:?10/10/2024 12:32 PM EDT
--- OUTSIDE RECORDS SUMMARY | 2024-10-10 12:33 | XMS_ITS | Patient Health Record ---
Author Organization [facility] Address [address] [place] [address] Care Team Providers Care Pickle Cutter Name Role Phone Mike Bush MD Primary Care Provider Rojelio Dietrich Jr Unavailable Allergies Allergen (clinical drug ingredient) Drug/Non Drug Allergy documented on EMR Reaction Allergy Type Onset Date Status seasonal (uncoded) Unknown Allergy A ctive Results Component Value Reference Range Notes Complete Blood Count Auto Di ff Reviewed date:10/27/2023 10:08:16 AM Interpretation: Performing Lab:[facility], [address] [place] [phone] Notes/Report: White Blood Count 6.9 4.8-10.8 X10*3/uL [...] Panel Reviewed date:10/27/2023 10:08:10 AM Interpretation: Performing Lab:[facility], [address] [place] [phone] Notes/Report: Bilirubin Total 0.3 0.0-1.0 mg/dL Bilirubin Direct 0.1 0.0-0.5 mg/dL Aspartate Amino Transferase 24 5-31 U/L Alanine Aminotransferase 31 0-31 U/L Total Protein 7.1 6.5-8.0 g/dL Albumin Level 4.2 3.5-5.0 g/dL Alkaline Phosphatase 97 39-117 U/L Lipase Reviewed date:10/27/2023 10:08:04 AM Interpretation: Performing Lab:[facility], [address] [place] [phone] Notes/Report: Lipase 31 8-78 U/L Pathology Reviewed date:11/16/2023 09:27:28 AM Interpretation: Performing Lab:[facility], [address] [place] [phone] Notes/Report: -- Name: Itzel Marvin Age/Sex: 68/F : 1955 [facility]#: [id number] Unit#: [id number] Attend Dr: Rojelio Lake MD Re11/09/23 Status : [facility] Location: [facility] Disch: -- SPEC : [id number] RECD : 11/10/23-906 STATUS: ROXANNELexie MEDINA NUM: [id number] CAROL: 11/09/23-1347 [facility] DR: Rojelio Lake MD ENTERED: 11/10/23-02 05 [...] Itzel Marvin Age/Sex: 68/F : 1955 Unit#: [id number] Attend Dr: Rojelio Lake MD Re11/09/23 Status : [facility] Location: [facility] Disch: -- SPEC : [id number] RECD : 11/10/23 STATUS: TIFFANIE MEDINA NUM: [id number] CAROL: 11/09/23-1347 [facility] DR: Rojelio Lake MD ENTERED: 11/10/23-02 05 [...] and B1. Copies To: Rojelio Lake MD [address] [place] [address] [address] [place] [address] Mike Bush MD [address] [place] [address], [address] [address] -- Signed (si gnature on file) Perla [...] Problem Status W/U Status Risk Notes Problem 123453922 Colon cancer screening (Z12.11) Active confirmed Problem 2864734 Diverticulitis o f large intestine without perforation or abscess without bleeding (K57.32) Active confirmed Problem 657188285 Periumbilical abdominal pain (R10.33) Active confirmed Problem 547622545 Loco's esopha yakelin without dysplasia (K22.70) Active confirmed Problem Loco esophagu s (K22.70) Active confirmed Problem 97775583 Other irritable bowel syndrome (K58.8) Active confirmed Vital Signs Temperature 98.2 degrees Fahrenheit 10/20/2023 Blood pressure diastolic 00 mm Hg 10/20/2023 Height 64.5 in 10/20/2023 Blood pressure systolic 000 mm Hg 10/20/2023 Weight 148 lbs 10/20/2023 BMI 25.01 kg/m2 10/20/2023 Encounters Encounter Location Date Provider Diagnosis [facility] Outpatient [address] [place] [id number] 11/09/2023 Rojelio Lake Jr Colon cancer screening Z12.11 ; Colon polyps K63.5 ; Loco esophagus K22.70 and Abdominal pain, periumbilical R10.33 [facility] [address] [place] [phone] 10/20/2023 Rojelio Lake Jr Periumbilical abdominal pain R10.33 ; 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 K22.70 and Colon cancer screening Z12.11 [facility] [address] [place] [phone] 10/18/2023 Rojelio Lake Jr [facility] [address] [place] [phone] 10/20/2023 Rojelio Lake Jr [facility] [address] [place] [phone] 10/27/2023 Rojelio Lake Jr [facility] [address] [place] [phone] 11/01/2023 Rojelio Lake Jr [facility] [address] [place] [phone] 11/16/2023 Rojelio Lake Jr [facility] [address] [place] [phone] 02/14/2024 Rojelio Lake Jr Assessments Encounter Date [...] Coverage End Date [employer] [place] [address] [address] [place] [address] [id number] SABINE MEADE Self - patient is [...]
--- OUTSIDE RECORDS SUMMARY | 2024-10-10 12:33 | XMS_ITS ---
Author Organization [facility] Address [address] [place] [phone] Care Team Providers Care Marketing Information Coordinator Name Role Phone Mike Bush MD Primary Care Provider Rojelio Dietrich Jr [phone] REASON FOR VISIT pathology Medications Medication SIG (Take, Route, Fr equency, Duration) Notes Start Date End Date Status Fluconazole 200 MG 1 tablet Orally daily for 14 days 11/16/2023 Active Encounters Encounter Location Date Provider Diagnosis [facility] [address] [place] [phone] 11/16/2023 Rojelio Lake Jr Plan Of Treatment Medication Medication Name Sig Start Date Stop Date Notes Fluconazole 200 MG 1 tablet Orally daily for 14 days 11/15 Progress Notes * BREANA SABINE CDOB:1955 (68 yo F)Acc No.[id number]:11/16/2023 Patient:?SABINE TOUSSAINT :1955???Age:68 Y???Sex:Female Address:[address] [place] [address] * Refills? Start Fluconazole Tablet, 200 MG, Orally, 14 Tablet, 1 tablet, daily, 14 days, Refills=0 * true * Date:? Generated for Indioi kelin/Falatoyag/eTransmitting on:?10/10/2024 12:33 PM EDT
== END 2024-10-10 11:52 | disposition home or self-care (01) ==
LOC: HO.HGS 11:15
PROVIDERS: PCP Internal Medicine; Visit Provider Surgery
DX: K42.9 Umbilical hernia without obstruction or gangrene (principal)
CPT/HCPCS: 99213

== ENCOUNTER → 2024-10-10 11:14 | Outpatient (BNVA) | payer MEDICARE, SELFPAY | PROVIDERS: PCP Internal Medicine; Visit Provider Surgery | DX: K42.9 Umbilical hernia without obstruction or gangrene (principal) | CPT/HCPCS: 99212 ==

== ENCOUNTER 2024-11-05 14:46 | Outpatient (AMB) | payer MEDICARE, SELFPAY ==
--- NOTE | 2024-11-05 15:00 | A.OFFVIS_ITS ---
Intake Visit Reasons: Incontinence (seen in 2020) Intake Note: New patient presents today for initial visit for incontinence Urology Medication:None Blood Thinner:None Antibiotic Allergies:Sulfa, Amoxicillin PVR:65ml Allergies amoxicillin (AMOXICILLIN) Allergy (Severe, Verified 12/07/24 14:57) HIVES Sulfa (Sulfonamide Antibiotics) (SULFA (SULFONAMIDE ANTIBIOTICS)) Allergy (Severe, Verified 12/07/24 14:57) HIVES,SWELLING morphine Adverse Reaction (Verified 12/07/24 14:57) Hallucinations ENVIROMENTAL Allergy (Mild, Uncoded 10/10/24 11:22) NASAL CONGESTION HPI Comments Details: 11/05/24 History of Present Illness - The patient is a 69-year-old female presenting with bladder control issues. - She underwent surgery several years ago for bladder control, which was initially effective but is no longer providing relief. - Symptoms include urinary frequency, incontinence, and a strong urge to urinate, necessitating the use of padding at times. - The patient consumes coffee, water, and alcohol, which may exacerbate her urinary symptoms. - Past medical history includes kidney stones, diverticulitis, umbilical hernia, and breast cancer, currently in remission. Urinary Symptoms Review - Urinary frequency and incontinence with a strong urge to urinate. - Sometimes unable to urinate despite a strong urge. - Lifestyle factors include caffeine and alcohol consumption, which may exacerba te symptoms. Results - Bladder scan post-void residual: 65 mL Plan - Conduct urodynamic testing to assess bladder function and muscle strength. - Implement lifestyle changes by reducing caffeine and alcohol consumption to alleviate urinary symptoms. - Complete a urinalysis as an outpatient to exclude urinary tract infection. [facility] Medical History (Updated 12/09/24 @ 00:01 by Catherine Fry) Colonic diverticular abscess Umbilical hernia History of left breast cancer (~1992) Nicotine dependence, cigarettes, uncomplicated Chronic bronchitis Chronic cough Chronic allergic rhinitis Osteopenia (~2016) GERD (gastroesophageal reflux disease) Hepatic steatosis Diverticulitis Loco's esophagus Basal cell carcinoma Depression Surgical History (Updated 12/06/24 @ 17:01 by Amita Taylor) History of esophagogastroduodenoscopy (EGD) History of colonoscopy (~11/09/23) History of wisdom tooth extraction History of rotator cuff surgery History of left mastectomy (~2003) History of bilateral breast implants History of back surgery History of bladder surgery History of hysterectomy (~1997) History of lumpectomy of left breast (~1992) Family History Paternal Grandmother Breast cancer Social History Household Members: Children Housing: House Do you presently have visiting nurse or other home services: No Alcohol intake: current Alcohol intake frequency: 0-2 drinks per day Patient Tobacco Use Status: Former Tobacco user Tobacco use type: Cigarette Cigarette Packs Per Day: 0.75 Cigarettes Per Day: 15 Years Smoked: 40 e-Cigarette/Vaping Use: Never Used Second Hand Smoke Exposure: No service: No Current occupational status: employed Sexual orientation: Straight/Heterosexual Gender identity: Female Cognitive needs: No Hearing needs: No Vision needs: Yes (reading glasses) Female Reproductive History Menstrual Age of Menarche: 14 Review of Systems Const All systems reviewed & are unremarkable except as noted in HPI and below Reports no additional complaints Eyes Reports no additional complaints ENT Reports no additional complaints Card Reports no additional complaints Resp Reports no additional complaints GI Reports no additional complaints Reports as per HPI Musc Reports no additional complaints Skin/Breast Reports system reviewed and no additional complaints, except as documented Neuro Reports no additional complaints Psych Reports no additional complaints Endo Reports no additional complaints Dioni/Lymph Reports no additional complaints Aller/Immun Reports no additional complaints Physical Exam Const General: cooperative, healthy appearing and no acute distress Orientation/consciousness: patient oriented x3 HEENT Head: Yes normal to inspection, Yes normocephalic and Yes atraumatic Eyes Conjunctivae: conjunctivae normal Neck Neck: Yes normal visual inspection and Yes trachea midline Chest Chest palpation & inspection: normal inspection of the chest Resp Effort & Inspection: normal respiratory effort GI Inspection: Yes normal to inspection Palpation (GI): Soft to palpation Other: Vaginal atrophy, bladder and bladder is well supported General: No no CVA tenderness External Female Exam: normal external appearance Speculum Exam - Vagina: vagina atrophic Back/Spine/Pelvis Back: No no CVA tenderness Neuro General: patient oriented x3 Extrem General: No edema Psych Appearance: grossly normal Assessment & Plan Assessment & Plan (1) Urinary incontinence: Code(s): R32 - Unspecified urinary incontinence Category: Medical (2) Urinary urgency: Code(s): R39.15 - Urgency of urination Category: Medical Plan Plan - Conduct urodynamic testing to assess bladder function and muscle strength. - Implement lifestyle changes by reducing caffeine and alcohol consumption to alleviate urinary symptoms. - Complete a urinalysis as an outpatient to exclude urinary tract infection. Patient Instructions: The patient had an opportunity to ask questions regarding treatment plan. The patient expressed understanding and agreement with the above treatment plan. The patient is aware they should contact our office by phone for worsening of their current condition or the appearance of new symptoms. Compliance is encouraged with any medications and followup testing that is ordered. It is a privilege to be allowed the opportunity to participate in the urologic care of your patient. If you have any questions or concerns regarding treatment for the above conditions please do not hesitate to contact me. The office tele phone contact is [phone]. This note is constructed in part using voice recognition software. While every effort has been made to ensure accuracy locomotive lubricating systems clerk errors may have been included. Yours sincerely, Charito Renner MD Scribe Plan - Not visible on output: Patient was informed and verbally consented to the use of an ambient scribe for clinic note documentation during this visit. Coding Level of Care Code New Pt Level 4 (15577) Diagnoses Urinary incontinence R32 Urinary urgency R39.15
--- OUTSIDE RECORDS SUMMARY | 2024-11-05 16:33 | XMS_ITS ---
Author Organization [facility] Address [address] [place] [phone] Care Team Providers Care Legal Administrative Secretary Name Role Phone Mike Bush MD Primary Care Provider Rojelio Dietrich Jr Unavailable [phone] REASON FOR VISIT Patient presents today for barretts esophagus Encounters Encounter Location Date Provider Diagnosis [facility] [address] [facility] [address] [place] [phone] 02/16/2024 Rojelio Lake Jr Plan Of Treatment No Information Progress Notes * SABINE TOUSSAINT CDOB:1955 (69 yo F)Acc No.[id number]:02/16/2024 Progress Notes Patient:?SABINE TOUSSAINT Provider:?Rojelio Lake MD :1955???Age:68 Y???Sex:Female D ate:02/16/2024 Address:[address] [place], [place] [id number] Pcp:Mike Bush MD Subjective: * Chief Complaints: [...] MD Date:?0 02/16/2024 Generated for Bebe neville/Anushka/eTransmitting on:?11/05/2024 04:33 PM EDT
== END 2024-11-05 15:42 | disposition home or self-care (01) ==
LOC: HO.HUSH 14:47
PROVIDERS: PCP Internal Medicine; Visit Provider Urology
DX: R32 Unspecified urinary incontinence (principal); R39.15 Urgency of urination
CPT/HCPCS: 99204

== ENCOUNTER → 2024-11-05 14:46 | Outpatient (BNVA) | payer MEDICARE, SELFPAY | PROVIDERS: PCP Internal Medicine; Visit Provider Urology | DX: R32 Unspecified urinary incontinence (principal); R39.15 Urgency of urination | CPT/HCPCS: 99202 ==

== ENCOUNTER 2024-11-27 07:27 | Inpatient (IN) | payer MEDICARE, SELFPAY ==
--- NOTE | ~2024-11-27 | CT_ITS ---
EXAMINATION: CT ABDOMEN AND PELVIS WITH CONTRAST CLINICAL INFORMATION: Left lower quadrant pain. Fever. History of diverticulitis. COMPARISON: February 12, 2020. TECHNIQUE: Multidetector volumetric images were obtained from the superior aspect of the liver through the pubic symphysis following administration 85 mL of Omnipaque 350 intravenous contrast. Sagittal and coronal reformatted images were obtained on the technologist's workstation. Oral contrast: No This CT examination was performed using dose optimization techniques as appropriate, variously including the following: *Automated exposure control *Adjustment of mA and/or kV according to patient size (this includes techniques or standardized protocols for targeted exams where dose is matched to indication/reason for exam; i.e. extremities or head) *Use of iterative reconstruction technique DLP: 463 mg centimeter. FINDINGS: LUNG BASES: Pulmonary patchy groundglass. Linear attenuation, lingula. LIVER, GALLBLADDER, AND BILIARY TREE: Liver measures 16 cm with decreased enhancement pattern. No focal mass. Portal veins, hepatic veins and intrahepatic portion of the IVC are patent. No pericholecystic fluid collection or gallbladder wall thickening. No intrahepatic or extrahepatic biliary ductal dilatation. PANCREAS: Punctate calcifications throughout the parenchyma pronounced in the head and uncinate process. No main pancreatic ductal dilatation. No peripancreatic fluid collection. No focal pancreatic mass. SPLEEN: 9 cm. No focal lesion. ADRENAL GLANDS: No nodular lesion. KIDNEYS AND URETERS: Nonobstructing 2.5 mm calculi, lower pole left pelvicalyceal system. No hydronephrosis in either kidney. Multifocal cystic lesions. No focal renal mass. Normal enhancement pattern of the renal parenchyma. Probably layering contrast within the renal pelvises. BLADDER: Fluid-filled. GASTROINTESTINAL TRACT: There is an asymmetric intestinal wall thickening centered in the proximal to mid sigmoid colon with a 4 cm irregular shaped peripheral enhancing fluid collection involving the superior medial margin of the mid sigmoid colon. There is pericolonic edema pattern. There are numerous diverticula throughout the left hemicolon. There is abundant stool throughout the large intestine. Normal variant pneumoperitoneum. Air-fluid levels in the left hemiabdomen, proximal to mid small bowel loops. No intestinal obstruction pattern. Appendix is normal. Small hiatal hernia. ABDOMINAL WALL: Fat-containing umbilical and left inguinal hernias. LYMPH NODES: Prominent retroperitoneum and mesenteric lymph nodes. VASCULAR: Calcified plaques in the coronary arteries. Mixed plaques in the abdominal aorta wall and iliac arteries. No aneurysm or dissection abdominal aorta. PELVIC VISCERA: Absent uterus. OSSEOUS STRUCTURES: Multilevel spondylosis. Osteopenia versus osteoporosis. No acute fracture or gross listhesis. Levoconvex rotoscoliosis apex at L3. Sclerosis and vacuum phenomenon both sacroiliac joints. Hypertrophy of the facet joints, L5-S1. Bilateral breast implants. CT/CT abdomen pelvis w IV con IMPRESSION: Acute complicated diverticulitis, proximal to mid sigmoid colon with a 4 cm abscess/phlegmon. Fleischner guidelines were followed. Electronically signed by: Macario Perez MD 11/27/2024 11:01 AM EDT
--- NOTE | ~2024-11-27 | CT_ITS ---
EXAMINATION: CT ABDOMEN PELVIS WITH IV CONTRAST HISTORY: f/up for diverticular abscess COMPARISON: There is an is made with the prior examination dated 11/27/2024. TECHNIQUE: CT scan of the abdomen and pelvis was performed following administration of 85 mL Omnipaque 350 using standard departmental protocol. Coronal and sagittal reformatted images were generated and reviewed. Oral contrast material was not administered at the request of the referring physician. This CT exam was performed with one or more of the following dose reduction techniques: automated exposure control, adjustment of the mA and/or kV according to patient size, use of iterative reconstruction technique. DLP: 357 mGy-cm FINDINGS: LOWER CHEST: The visualized lung bases are clear. There is no pleural effusion. CARDIOVASCULATURE: The heart is normal in size. There is no pericardial effusion. LIVER: The liver is normal in size and contour, but demonstrates heterogeneously decreased attenuation, consistent with steatosis. There are areas of focal fatty sparing in the right lobe. No liver mass is identified. The hepatic and portal veins are patent. GALLBLADDER / BILE DUCTS: The gallbladder is unremarkable. There is no intra or extrahepatic biliary ductal dilatation. SPLEEN: The spleen is normal in size. No focal splenic lesion is identified. PANCREAS: Again seen are punctate calcifications in the pancreatic head consistent with chronic pancreatitis. The pancreatic duct is not dilated. ADRENAL GLANDS: Within normal limits. KIDNEYS/RETROPERITONEUM: There are punctate nonobstructing left lower pole renal calculi. There is no hydronephrosis. There are cysts in the lower poles of both kidneys measuring 1.1 cm on the right and 1.8 cm on the left. LYMPH NODES: No abdominal or pelvic lymphadenopathy. VASCULATURE: The abdominal aorta demonstrates atherosclerotic calcification, but is normal in caliber. MESENTERY/PERITONEUM: No free fluid. No masses. There is no free intraperitoneal gas. STOMACH: The stomach is collapsed, limiting evaluation. SMALL BOWEL: The small bowel is normal in caliber. COLON: Again seen is extensive colonic diverticulosis. There is wall thickening and mild pericolonic inflammatory stranding about the sigmoid colon, with diverticulitis, as seen previously. The previously seen intramural abscess has resolved. No extraluminal gas or loculated fluid collection is identified. APPENDIX: Normal. URINARY BLADDER/PELVIC ORGANS: The urinary bladder is unremarkable. The patient is status post hysterectomy. BONES / SOFT TISSUES: Again seen is a small fat-containing umbilical hernia and a small fat-containing left inguinal hernia. There is mild degenerative disc disease of the spine. CT/CT abdomen pelvis w IV con IMPRESSION: Improvement in previously seen sigmoid diverticulitis. The previously seen intramural abscess has resolved. Electronically signed by: Francisco Diaz MD 11/29/2024 11:16 AM EDT
[2024-11-27 07:33] VITALS: BP 143/91; PULSE 109; RESP 18; TEMP 36.8; O2SAT 95; BMI 26.8
--- NOTE | 2024-11-27 07:34 | ED_ITS ---
HPI - Abdominal Pain General Chief Complaint: Abdominal Pain Stated Complaint: abd pain Time Seen by Provider: 11/27/24 08:52 Source: patient Mode of arrival: ambulatory Limitations: no limitations History of Present Illness ED Provider: Marlys Montana PA-C HPI narrative: Patient is a 69 year old female with past medical history of umbilical hernia, diverticulitis, hepatic steatosis, osteopenia, breast cancer s/p left mastectomy 2003 and hysterectomy without oophorectomy 1997, chronic bronchitis, and depression presenting to ER on 11/27 with chief complaint of abdominal pain, low grade fever, constipation, and chills for the past 3 days. She states the abdominal pain is felt in her lower abdomen but slightly worse in her LLQ, comes in waves, relieved by NSAIDs. She states her previous episode of diverticulitis felt similar to this. She sees Dr. Lake (core mounter) regularly, and had CT ABD scheduled for evaluation of constipation/fecal impaction but has not completed it yet. She reports she is s/p bladder surgery and hysterectomy, no other previous abdominal surgeries, still has an appendix. She endorses some nausea for the past few days. She denies chills, fatigue, chest pain, shortness of breath, vomiting, diarrhea, hematemesis, hematochezia, melena, genitourinary symptoms, or any other associated symptoms. MD elicited complaint: abdominal pain Pertinent past history: constipation and diverticulitis Onset (ago): day(s) Treatments prior to arrival: NSAIDs Related Data Home Medications ?Medication ?Instructions ?Recorded ?Confirmed cholecalciferol (vitamin D3) 10 20 mcg PO DAILY 10/10/24 mcg (400 unit) tablet Previous Rx's ?Medication ?Instructions ?Recorded fluticasone propionate 50 2 spray intranasal DAILY #16 grams 08/09/24 mcg/actuation nasal spray,suspension montelukast 10 mg tablet 10 mg PO BEDTIME #30 tabs cetirizine 10 mg tablet 10 mg PO DAILY PRN for aller gies 08/30/24 #90 ea fluoxetine 20 mg capsule 20 mg PO DAILY #90 caps 08/21 simvastatin 10 mg tablet 10 mg PO BEDTIME #90 tabs benzonatate 200 mg capsule 200 mg PO BID PRN cough 30 days 09/18/24 #60 caps alprazolam 0.25 mg tablet 0.25 mg PO BID PRN anxiety # 60 tabs 11/19/24 ciprofloxacin HCl 500 mg tablet 500 mg PO Q12H 10 days #20 tabs 11/25/24 metronidazole 500 mg tablet 500 mg PO BID 10 days #20 tabs 11/25/24 Allergies Allergy/AdvReac Type Severity Reaction Status Date / Time amoxicillin (AMOXICILLIN) Allergy Severe HIVES Verified 11/27/24 07:36 Sulfa (Sulfonamide Allergy Severe HIVES,SWELL Verified 11/27/24 07:36 Antibiotics) (SULFA ING (SULFONAMIDE ANTIBIOTICS)) morphine AdvReac Hallucinati Verified 11/27/24 11:58 ons ENVIROMENTAL Allergy Mild NASAL Uncoded 10/10/24 11:22 CONGESTION Review of Systems Constitutional: Reports no additional constitutional complaints, Denies chills, Denies fever(s) and Denies night sweats Eyes: Reports no additional eye complaints, Denies blurry vision, Denies change in vision, Denies diplopia, Denies eye discharge, Denies loss of vision and Denies eye pain Denies dizziness Cardiovascular: Reports no additional cardiovascular complaints, Denies chest pain, Denies lightheadedness, Denies Loss of Consciousness and Denies dyspnea Respiratory: Reports no additional respiratory complaints and Denies dyspnea Gastrointestinal: Reports as per HPI, Reports no additional gastrointestinal complaints, Reports abdominal pain, Denies melena, Denies hematochezia, Denies change in bowel habits, Denies change in stool character, Reports constipation, Reports nausea and Denies vomiting Genitourinary: Denies hematuria, Denies urinary frequency, Denies dysuria, Denies urinary incontinence, Denies urinary hesitancy and Denies urinary urgency Musculoskeletal: Reports no additional musculoskeletal complaints, Denies numbness and Denies tingling Denies dizziness, Denies loss of vision, Denies numbness and Denies tingling Psychiatric: Reports no additional psychiatric complaints Endocrine: Reports no additional endocrine complaints Hematologic/Lymphatic: Reports no additional hematologic/lymphatic complaints Allergic/Immunologic: Reports no additional allergic/immunologic complaints PMFSH Past Medical History Attestation statement: The following information was validated with the patient. Source: old records reviewed and nursing notes reviewed Medical History Umbilical hernia History of left breast cancer (~1992) Nicotine dependence, cigarettes, uncomplicated Chronic bronchitis Chronic cough Chronic allergic rhinitis Osteopenia (~2017) GERD (gastroesophageal reflux disease) Hepatic steatosis Diverticulitis Loco's esophagus Basal cell carcinoma Depression Surgical History History of esophagogastroduodenoscopy (EGD) History of colonoscopy History of wisdom tooth extraction History of rotator cuff surgery History of left mastectomy (~2003) History of bilateral breast implants History of back surgery History of bladder surgery History of hysterectomy (~1997) History of lumpectomy of left breast (~1992) Family History Family History Paternal Grandmother Breast cancer Social History Social History Housing: House Alcohol intake: current Alcohol intake frequency: 0-2 drinks per day Patient Tobacco Use Status: Current everyday Tobacco user Cigarette Packs Per Day: 0.75 Cigarettes Per Day: 15 Smoked in Last 30 Days: No e-Cigarette/Vaping Use: Former Use Use of substances other than those prescribed or required for medical reasons: No Advance Directives: No Advance Directives Information Provided: Yes Do you have a plan to hurt others: No Plan service: No Current occupational status: employed Sexual orientation: Straight/Heterosexual Gender identity: Female Cognitive needs: No Hearing needs: No Vision needs: Yes (reading glasses) Physical Exam ED Vital Signs: Vital Signs - 24 hr 11/27/24 07:33 Temperature 98.3 F Pulse Rate 109 H Respiratory Rate 18 Blood Pressure 143/91 H Pulse Oximetry 95 Oxygen Delivery Method Room Air BMI result Body Mass Index 26.8 Const General: cooperative, no acute distress, alert and awake Nutritional Appearance: well nourished Orientation/consciousness: patient oriented x3 HENMT Head: Yes normal to inspection and Yes atraumatic Ears: hearing grossly normal bilaterally and external ears normal General nose exam: Normal external nose present, no nasal discharge noted and no epistaxis Face and sinus: Yes normal facial exam, No abrasion and No laceration Mouth: Normal oral and palatal mucosa present, no drooling and no muffled voice Eyes General: appearance normal, both eyes and all related structures Periorbital: periorbital findings normal Eyelids: Yes eyelids normal Conjunctivae: conjunctivae normal Pupils: Equal, round and reactive pupils present EOM: EOMs intact bilaterally Neck Neck: Yes normal visual inspection, Yes full ROM and Yes no lymphadenopathy Resp Effort & Inspection: normal respiratory effort and able to speak in complete sentences GI Palpation (GI): Soft to palpation, Tenderness to palpation present (GI) in the LLQ, no guarding, not rigid, no hepatomegaly, Hernia present umbilical and No Rebound tenderness present Neuro General: patient oriented x3, moves all extremities and CN's II-XI intact bilaterally Cranial nerves: Yes Equal, round and reactive pupils present Cognition (Neuro): normal cognition Extrem General: Yes normal to inspection, Yes full ROM and Yes capillary refill normal Psych Appearance: grossly normal Mental Status: mental status grossly normal Affect: normal affect Attitude: cooperative Thought process: Normal thought process present Thought content: Normal thought content present Insight: Good insight present (Psych) Course Course Course Narrative: 69 yo female with PMH of bronchitis, depression, diverticulitis, renal colic here with c/o LLQ Pain and lower abdominal pain with some nausea, anorexia, loose stools no bleeding and LLQ pain into lower abdomen. At this time she has scant stool. She follows with Dr. Lake. S/p hx of hysterectomy and bladder sling. PCP started cipro and flagyl on 11/25 but it is not helping. At this time will start basic labs and defer CT scan imaging to primary provider this is a RAPID medical screening exam the rest of the history and physical exam is to be done by the main provider. SHAYY 11/27/24 736am Medical Decision Making Medical Decision Making [facility] Narrative: Patient is a 69 year old female with past medical history of umbilical hernia, diverticulitis, hepatic steatosis, osteopenia, breast cancer s/p left mastectomy 2003 and hysterectomy without oophorectomy 1997, chronic bronchitis, and depression presenting to the department with abdominal pain, low grade fever, constipation, and chills. Patient's physical exam was as noted in the physical exam portion of this note. Patient's blood work was unremarkable. Patient's EKG was unremarkable. Patient's CT abd/pelvis showed acute complicated diverticulitis in the proximal to mid sigmoid colon with a 4cm abscess / phlegmon. I spoke with the general surgery team who recommended admission to their service. Patient was given IV Levofloxacin and Flagyl. Patient's clinical presentation is not consistent with sepsis (@1145). I explained my physical exam findings as well as all test results to the patient. I answered all questions asked by the patient. Patient verbalized agreement and understanding with this treatment plan and discharge. Differential Diagnosis Differential Diagnoses: The differential diagnosis associated with the presentation includes Diverticulitis Abdominal pain Gastroenteritis Admission/Observation Consideration of admission/observation: Escalation of care including admission/observation considered Patient admitted as noted in the MDM Rationale portion of this note. Consult Healthcare Provider Management of the patient was discussed with: Entry Level Management (spoke to the general surgery team as noted in the MDM Rationale portion of this note. ) Lab Data [facility] Lab Attestation statement: I reviewed the patient's lab results. My interpretation of these results are in the MDM Rationale portion of this note. 11/27/24 07:48 11/27/24 07:48 Labs: Lab Results 11/27/24 11/27/24 Range/Units 07:48 11:33 WBC 9.6 (4.8-10.8) X10*3/uL RBC 4.22 (4.20-5.50) X10*6/uL Hgb 13.7 (12.0-16.0) g/dl Hct 41.1 (37.0-47.0) % MCV 97.4 (80.0-98.0) fL MCH 32.5 (27.0-33.0) pg MCHC 33.3 (31.0-35.0) g/dl RDW 11.9 (11.0-16.0) % Plt Count 333 (160-400) X10*3/uL MPV 9.6 (9.4-12.3) fL Immature Gran % (Auto) 0.8 H (0.0-0.4) % Neut % (Auto) 71.3 (45-73) % Lymph % (Auto) 13.7 L (20-40) % [place] % (Auto) 11.4 H (2-11) % Eos % (Auto) 2.1 (0-4) % Baso % (Auto) 0.7 (0-2) % Lymph # (Auto) 1.3 (1.2-4.9) X10*3/uL [place] # (Auto) 1.1 (0.1-1.2) X10*3/uL Eos # (Auto) 0.2 (0.0-0.4) X10*3/uL Baso # (Auto) 0.1 (0.0-0.2) X10*3/uL Abs Immat Gran (auto) 0.08 H (0.00-0.03) X10*3/uL Absolute Neuts (auto) 6.8 (2.0-8.3) x10*3/uL Absolute Nucleated RBC 0.000 (0.0-0.012) X10*3/uL Nucleated RBC % (auto) 0.0 (0.0-0.2) /100WBC Sodium 137 (135-145) mmol/L Potassium 4.3 (3.3-5.1) mmol/L Chloride 102 (96-108) mmol/L Carbon Dioxide 27 (22-29) mmol/L Anion Gap 12 (12-20) BUN 11 (9-16) mg/dL Creatinine 0.71 (0.5-1.4) mg/dL Estim Creat Clear Calc 74.2 Estimated GFR > 60 Random Glucose 116 H (60-115) mg/dL Lactic Acid 0.6 (0.5-2.0) mmol/L Calcium 9.8 (8.4-10.2) mg/dL Magnesium 2.1 (1.6-2.6) mg/dL Total Bilirubin 0.3 (0.0-1.0) mg/dL Direct Bilirubin 0.2 (0.0-0.5) mg/dL AST 23 (5-31) U/L ALT 29 (0-31) U/L Alkaline Phosphatase 98 (39-117) U/L Total Protein 7.2 (6.5-8.0) g/dL Albumin 4.0 (3.5-5.0) g/dL Lipase 16 (8-78) U/L Independent Interpretation I performed an independent interpretation of an: EKG and CT Scan Interpretation: My interpretation is in agreement with the radiologist's impression of this imaging study. L Report Number: [id number]: Total DLP = 463.00 mGy-cm EXAMINATION: CT ABDOMEN AND PELVIS WITH CONTRAST CLINICAL INFORMATION: Left lower quadrant pain. Fever. History of diverticulitis. COMPARISON: February 12, 2020. TECHNIQUE: Multidetector volumetric images were obtained from the superior aspect of the liver through the pubic symphysis following administration 85 mL of Omnipaque 350 intravenous contrast. Sagittal and coronal reformatted images were obtained on the technologist's workstation. Oral contrast: No This CT examination was performed using dose optimization techniques as appropriate, variously including the following: *Automated exposure control *Adjustment of mA and/or kV according to patient size (this includes techniques or standardized protocols for targeted exams where dose is matched to indication/reason for exam; i.e. extremities or head) *Use of iterative reconstruction technique DLP: 463 mg centimeter. FINDINGS: LUNG BASES: Pulmonary patchy groundglass. Linear attenuation, lingula. LIVER, GALLBLADDER, AND BILIARY TREE: Liver measures 16 cm with decreased enhancement pattern. No focal mass. Portal veins, hepatic veins and intrahepatic portion of the IVC are patent. No pericholecystic fluid collection or gallbladder wall thickening. No intrahepatic or extrahepatic biliary ductal dilatation. PANCREAS: Punctate calcifications throughout the parenchyma pronounced in the head and uncinate process. No main pancreatic ductal dilatation. No peripancreatic fluid collection. No focal pancreatic mass. SPLEEN: 9 cm. No focal lesion. ADRENAL GLANDS: No nodular lesion. KIDNEYS AND URETERS: Nonobstructing 2.5 mm calculi, lower pole left pelvicalyceal system. No hydronephrosis in either kidney. Multifocal cystic lesions. No focal renal mass. Normal enhancement pattern of the renal parenchyma. Probably layering contrast within the renal pelvises. BLADDER: Fluid-filled. GASTROINTESTINAL TRACT: There is an asymmetric intestinal wall thickening centered in the proximal to mid sigmoid colon with a 4 cm irregular shaped peripheral enhancing fluid collection involving the superior medial margin of the mid sigmoid colon. There is pericolonic edema pattern. There are numerous diverticula throughout the left hemicolon. There is abundant stool throughout the large intestine. Normal variant pneumoperitoneum. Air-fluid levels in the left hemiabdomen, proximal to mid small bowel loops. No intestinal obstruction pattern. Appendix is normal. Small hiatal hernia. ABDOMINAL WALL: Fat-containing umbilical and left inguinal hernias. LYMPH NODES: Prominent retroperitoneum and mesenteric lymph nodes. VASCULAR: Calcified plaques in the coronary arteries. Mixed plaques in the abdominal aorta wall and iliac arteries. No aneurysm or dissection abdominal aorta. PELVIC VISCERA: Absent uterus. OSSEOUS STRUCTURES: Multilevel spondylosis. Osteopenia versus osteoporosis. No acute fracture or gross listhesis. Levoconvex rotoscoliosis apex at L3. Sclerosis and vacuum phenomenon both sacroiliac joints. Hypertrophy of the facet joints, L5-S1. Bilateral breast implants. CT/CT abdomen pelvis w IV con IMPRESSION: Acute complicated diverticulitis, proximal to mid sigmoid colon with a 4 cm abscess/phlegmon. Fleischner guidelines were followed. Electronically signed by: Macario Perez MD 11/27/2024 11:01 AM EDT RP Dictated By: Macario Agee MD Signed By: Electronically signed by Macario Balbuena MD 11/27/24 1101 I independently interpreted this EKG and am in agreement with the below findings: Vent. Rate: 101 BPM Atrial Rate: 101 BPM P-R Int: 148 ms QRS Dur: 74 ms QT Int: 316 ms P-R-T Axes: 66 -3 45 degrees QTcB Int: 409 ms Sinus tachycardia Otherwise normal ECG When compared with ECG of 25-Oct-2023 11:17, No significant change was found DD/ [id number] Radiology Impression Discussion of test interpretation with radiology: I have reviewed the radiologist's reading. Medications Administered Discontinued Medications Generic Name Dose Route Start Last Admin Trade Name Freq PRN Reason Stop Dose Admin Metronidazole 500 mg in 100 mls @ 100 mls/hr 11/27/24 11:06 11/27/24 11:44 Flagyl IV 11/27/24 12:05 100 mls/hr ONCE ONE Administration Iohexol 100 ml 11/27/24 10:29 11/27/24 10:31 Iohexol 350 Mg/Ml 100 Ml Infus..Btl IV 11/27/24 10:30 85 ml ONCE ONE Administration Morphine Sulfate 4 mg 11/27/24 11:17 11/27/24 11:50 Morphine Sulfate 4 Mg/Ml Cartridge IVPUSH 11/27/24 11:18 Not Given ONCE ONE Protocol Ondansetron HCl 4 mg 11/27/24 11:17 11/27/24 11:29 Ondansetron Hcl 4 Mg/2 Ml Vial IVPUSH 11/27/24 11:18 4 mg ONCE ONE Administration Critical Care Time Critical Care Time Critical Care Time: Yes Total Critical Care Time: 39 Attestation: I spent 39 minutes of Critical Care Time with this patient. This does not include time spent on separately reported billable procedures. Discharge Plan Discharge Clinical Impression: Diverticulitis of large intestine with complication Patient Disposition: Admitted As Inpatient Print Language: Czech
--- NOTE | 2024-11-27 07:34 | ECG_ITS ---
Test Reason : abd pain Blood Pressure : */* mmHG Vent. Rate : 101 BPM Atrial Rate : 101 BPM P-R Int : 148 ms QRS Dur : 74 ms QT Int : 316 ms P-R-T Axes : 66 -3 45 degrees QTcB Int : 409 ms Sinus tachycardia Otherwise normal ECG When compared with ECG of 25-Oct-2023 11:17, No significant change was found Referred By: Krystina Knight Electronically Signed By: Jose Angel De Luna
[2024-11-27 07:55] LABS: MANUAL DIFF FLAG NO
[2024-11-27 08:00] LABS: Hematocrit 41.1 % (37.0-47.0); Hemoglobin 13.7 g/dl (12.0-16.0); Imm Gran Abs Auto 0.08 X10*3/uL (0.00-0.03); Imm Gran Pct Auto 0.8 % (0.0-0.4); Lymphocytes Absolute Auto 1.3 X10*3/uL (1.2-4.9); Mean Corpuscular HGB Conc 33.3 g/dl (31.0-35.0); Mean Corpuscular Hemoglobin 32.5 pg (27.0-33.0); Mean Corpuscular Volume 97.4 fL (80.0-98.0); NRBC Abs Auto 0.000 X10*3/uL (0.0-0.012); NRBC Pct Auto 0.0 /100WBC (0.0-0.2); Platelet Count 333 X10*3/uL (160-400); Red Blood Count 4.22 X10*6/uL (4.20-5.50); White Blood Count 9.6 X10*3/uL (4.8-10.8)
[2024-11-27 08:17] LABS: Alanine Aminotransferase 29 U/L (0-31); Albumin Level 4.0 g/dL (3.5-5.0); Alkaline Phosphatase 98 U/L (39-117); Anion Gap 12 (12-20); Aspartate Amino Transferase 23 U/L (5-31); Blood Urea Nitrogen 11 mg/dL (9-16); Calcium 9.8 mg/dL (8.4-10.2); Carbon Dioxide 27 mmol/L (22-29); Chloride 102 mmol/L (96-108); Creatinine Clr Calc Pharmacy 74.2; Estimated Glomerular Filt Rate > 60; Lipase 16 U/L (8-78); Magnesium 2.1 mg/dL (1.6-2.6); Potassium 4.3 mmol/L (3.3-5.1); Sodium 137 mmol/L (135-145); Total Protein 7.2 g/dL (6.5-8.0)
[2024-11-27] MEDS: iohexoL 350 MG/ML 100 ML INFUS..BTL IV (10:31)
[2024-11-27] MEDS: metroNIDAZOLE/NS 500 MG/100 ML PIGGYBACK 100 MG IV ×2 (11:44→19:51)
--- NOTE | 2024-11-27 11:51 | PC.NURSE ---
pt refusing analgesia at this time- sts she is not having pain- also sts that in the past ASTON makes her extremely loopy pt sts that she was given med post op for hysterectomy and pulled out her own stewart twice. MsO4 returned with PABLO Iqbal. Added to allergy profile as adverse reaction. Provider notified.
--- NOTE | 2024-11-27 12:25 | PC.NURSE ---
re: Levofloxacin vs ciprofoxacin: Levaquin ordered by ED provider- Cipro placed by Surgery, spoke w/ Vy in Pharm re: therapy duplication-Pharmacy to clarify
--- NOTE | 2024-11-27 13:17 | PHA.MEDREC ---
Addendum entered by Dale Thorpe PharmD 11/27/24 13:22: reviewed Original Note: Pharmacy Consult ? Medication Reconciliation Pharmacy has completed the medication reconciliation. Spoke to patient to confirm med list. Patient was able to name all of her medications. Patient states Simvastatin 10 mg was put on hold until she stops her antibiotics Cipro and Metronidazole.
--- NOTE | 2024-11-27 13:37 | PC.NURSE ---
report given to PABLO Alcaraz pt to be transferred to ED overflow 4
[2024-11-27 14:33] VITALS: BP 142/83; PULSE 86; RESP 18; TEMP 37.5; O2SAT 97
--- NOTE | 2024-11-27 15:27 | MHC.EDTECH ---
Pt being transported upstairs to admitting floor by NOEL Aponte
[2024-11-27 15:33] VITALS: BMI 27.7
--- NOTE | 2024-11-27 15:45 | P.EN_ITS ---
Event Note Date of Service: 11/28/24 Event Note: Patient is known to me She has had left lower quadrant pain for about 3 days now [place] febrile yesterday Abdomen is soft although with some tenderness in the left lower quadrant CAT scan reviewed - intramural abscess in the sigmoid, with inflammatory changes consistent with the acute diverticulitis Reviewed with IR , Dr. Carbajal - currently not a candidate for IR drainage in view of intramural nature, absence of good window Plan is to IV antibiotics, rescan in about 48 hours I discussed the plan with the patient Okay to have small sips of clear liquids for now Time Spent With Patient Time: Total time managing care of this patient today ____ minutes.
[2024-11-27 16:00] VITALS: BP 159/80; PULSE 79; RESP 18; TEMP 36.7; O2SAT 97
[2024-11-27 19:03] VITALS: BP 145/86; PULSE 85; RESP 18; TEMP 36.4; O2SAT 92
--- NOTE | 2024-11-27 19:48 | PM.HPGS ---
History of Present Illness History of Present Illness Date of Service: 11/27/24 Chief complaint: abd pain Narrative: Rachel Marvin is a 69 year old female who comes into the emergency room because over the last couple of days she has been having some abdominal pain in the lower abdominal area. She had been seeing Dr. Lake for some GI issues recently and she is known to have significant diverticulosis. She says he has only had 1 really bad attack of diverticulitis in the past. However she has been constipated and she has been taking meds 2 have softer bowel movements. However recently she started having more chills and not feeling well and as a result came into the emergency room. Here she was tender in the left lower quadrant no significant guarding or rebound and labs were relatively within normal limits and normal white count. She did have a CT scan of her abdomen and pelvis which shows moderate sigmoid diverticulosis with a collection which maybe an abscess/phlegmon area. This is about 4 cm in size. It was reviewed with Radiology team and unfortunately they do not feel that it is amenable for any type of drainage at this point. Patient otherwise is hemodynamically stable so plan to admit just sips of clear liquids and IV antibiotics. Review of Systems Review of Systems: Yes all other systems are reviewed and are negative PMFSH Past Medical History Medical History Umbilical hernia History of left breast cancer (~1992) Nicotine dependence, cigarettes, uncomplicated Chronic bronchitis Chronic cough Chronic allergic rhinitis Osteopenia (~2016) GERD (gastroesophageal reflux disease) Hepatic steatosis Diverticulitis Loco's esophagus Basal cell carcinoma Depression Family History Family History Paternal Grandmother Breast cancer Surgical History Surgical History History of esophagogastroduodenoscopy (EGD) History of colonoscopy History of wisdom tooth extraction History of rotator cuff surgery History of left mastectomy (~2003) History of bilateral breast implants History of back surgery History of bladder surgery History of hysterectomy (~1997) History of lumpectomy of left breast (~1992) Social History Social History Household Members: Children Housing: House Do you presently have visiting nurse or other home services: No Alcohol intake: current Alcohol intake frequency: 0-2 drinks per day Patient Tobacco Use Status: Former Tobacco user Tobacco use type: Cigarette Cigarette Packs Per Day: 0.75 Cigarettes Per Day: 15 Years Smoked: 40 Smoked in Last 30 Days: No e-Cigarette/Vaping Use: Never Used Patient Interested in Nicotine Replacement: No Patient Given Instructions on How to Stop Smoking: No Second Hand Smoke Exposure: No Use of substances other than those prescribed or required for medical reasons: No Have you been hit, kicked, punched, or otherwise hurt by someone within the past year? If so, by whom?: No Do you feel safe in your current relationship?: No Current Relationship Is there a partner from a previous relationship who is making you feel unsafe now?: No Are you made to feel afraid or neglected: No Advance Directives: No Advance Directives Information Provided: Yes Do you have a plan to hurt others: No Plan Recently lost weight without trying: No Nutrition Risks: No Nutritional Risk Patient : No : No Poor oral hygiene: No service: No Current occupational status: employed Sexual orientation: Straight/Heterosexual Gender identity: Female Cognitive needs: No Hearing needs: No Vision needs: Yes (reading glasses) Meds Allergies Allergy/AdvReac Type Severity Reaction Status Date / Time amoxicillin (AMOXICILLIN) Allergy Severe HIVES Verified 11/27/24 07:36 Sulfa (Sulfonamide Allergy Severe HIVES,SWELL Verified 11/27/24 07:36 Antibiotics) (SULFA ING (SULFONAMIDE ANTIBIOTICS)) morphine AdvReac Hallucinati Verified 11/27/24 11:58 ons ENVIROMENTAL Allergy Mild NASAL Uncoded 10/10/24 11:22 CONGESTION Active Medications: Current Medications Acetaminophen (Acetaminophen 325 Mg Tablet) 650 mg PO Q6H PRN PRN Reason: Pain, Mild 1-3,fever,headache Last Admin: 11/27/24 16:24 Dose: 650 mg Sodium Chloride (Ns) 1,000 mls @ 100 mls/hr IVCONT .Q10H [facility] Last Admin: 11/27/24 12:59 Dose: 100 mls/hr Metronidazole (Flagyl) 500 mg in 100 mls @ 100 mls/hr IV Q8H [facility] Ciprofloxacin (Cipro) 400 mg in 200 mls @ 200 mls/hr IV Q12H [facility] Last Infusion: 11/27/24 14:06 Dose: Infused Ketorolac Tromethamine (Ketorolac Tromethamine 30 Mg/Ml Vial) 15 mg IVPUSH Q6H PRN PRN Reason: Pain, Severe (Pain Scale 7-10) Stop: 12/02/24 11:52 Ondansetron HCl (Ondansetron Hcl 4 Mg/2 Ml Vial) 4 mg IVPUSH Q8H PRN PRN Reason: Nausea and Vomiting Sodium Chloride (0.9 % Sodium Chloride Flush 3 Ml Syringe) 3 ml IVFLUSH QSHIFT [facility] Last Admin: 11/27/24 16:32 Dose: Not Given Home Medications ?Medication ?Instructions ?Recorded ?Confirmed ?Last Taken ?Type cholecalciferol (vitamin D3) 10 20 mcg PO DAILY 09/18/24 11/27/24 Unknown History mcg (400 unit) tablet fluticasone propionate 50 2 spray intranasal DAILY PRN 11/27/24 11/27/24 Unknown History mcg/actuation nasal Allergy Symptoms spray,suspension Physical Exam Vital Signs: Vital Signs: Last Vital Signs Temp 97.6 F 11/27/24 19:03 Pulse 85 11/27/24 19:03 Resp 18 11/27/24 19:03 BP 145/86 H 11/27/24 19:03 Pulse Ox 92 11/27/24 19:03 O2 Del Method Room Air 11/27/24 19:03 BMI result Body Mass Index 27.7 Const: General: cooperative, healthy appearing, comfortable and no acute distress Orientation/consciousness: patient oriented x3 Resp: Effort & Inspection: normal respiratory effort Auscultation: clear to auscultation bilaterally Cardio: Rate: regular rate Rhythm: regular rhythm GI: Other: Abdomen is soft little bloated distended but softly distended no guarding no rebound no peritoneal signs but little tender in the left lower quadrant area Neuro: General: patient oriented x3 Results Results Labs: Short CBC 11/27/24 Range/Units 07:48 WBC 9.6 (4.8-10.8) X10*3/uL Hgb 13.7 (12.0-16.0) g/dl Hct 41.1 (37.0-47.0) % Plt Count 333 (160-400) X10*3/uL BMP 11/27/24 07:48 Sodium 137 Potassium 4.3 Chloride 102 Carbon Dioxide 27 BUN 11 Creatinine 0.71 Calcium 9.8 Liver Function 11/27/24 Range/Units 07:48 Total Bilirubin 0.3 (0.0-1.0) mg/dL Direct Bilirubin 0.2 (0.0-0.5) mg/dL AST 23 (5-31) U/L ALT 29 (0-31) U/L Alkaline Phosphatase 98 (39-117) U/L Albumin 4.0 (3.5-5.0) g/dL Abdomen CT scan report/results: report reviewed and image reviewed CT scan - pelvis: report reviewed and image reviewed Additional studies: Patient: Rachel Marvin MR#: [id number] : 1955 Acct:[id number] Age/Sex: 69 / F ADM Date: 11/27/24 Loc: HO.ED Attending Dr: Ordering Physician: Krystina Knight DO Date of Service: 11/27/24 Procedure(s): CT abdomen pelvis w IV con Accession Number(s): [id number] cc: Krystina Knight DO; Physician,Unknown ~ Report Number: [id number]: Total DLP = 463.00 mGy-cm EXAMINATION: CT ABDOMEN AND PELVIS WITH CONTRAST CLINICAL INFORMATION: Left lower quadrant pain. Fever. History of diverticulitis. COMPARISON: February 12, 2020. TECHNIQUE: Multidetector volumetric images were obtained from the superior aspect of the liver through the pubic symphysis following administration 85 mL of Omnipaque 350 intravenous contrast. Sagittal and coronal reformatted images were obtained on the technologist's workstation. Oral contrast: No This CT examination was performed using dose optimization techniques as appropriate, variously including the following: *Automated exposure control *Adjustment of mA and/or kV according to patient size (this includes techniques or standardized protocols for targeted exams where dose is matched to indication/reason for exam; i.e. extremities or head) *Use of iterative reconstruction technique DLP: 463 mg centimeter. FINDINGS: LUNG BASES: Pulmonary patchy groundglass. Linear attenuation, lingula. LIVER, GALLBLADDER, AND BILIARY TREE: Liver measures 16 cm with decreased enhancement pattern. No focal mass. Portal veins, hepatic veins and intrahepatic portion of the IVC are patent. No pericholecystic fluid collection or gallbladder wall thickening. No intrahepatic or extrahepatic biliary ductal dilatation. PANCREAS: Punctate calcifications throughout the parenchyma pronounced in the head and uncinate process. No main pancreatic ductal dilatation. No peripancreatic fluid collection. No focal pancreatic mass. SPLEEN: 9 cm. No focal lesion. ADRENAL GLANDS: No nodular lesion. KIDNEYS AND URETERS: Nonobstructing 2.5 mm calculi, lower pole left pelvicalyceal system. No hydronephrosis in either kidney. Multifocal cystic lesions. No focal renal mass. Normal enhancement pattern of the renal parenchyma. Probably layering contrast within the renal pelvises. BLADDER: Fluid-filled. GASTROINTESTINAL TRACT: There is an asymmetric intestinal wall thickening centered in the proximal to mid sigmoid colon with a 4 cm irregular shaped peripheral enhancing fluid collection involving the superior medial margin of the mid sigmoid colon. There is pericolonic edema pattern. There are numerous diverticula throughout the left hemicolon. There is abundant stool throughout the large intestine. Normal variant pneumoperitoneum. Air-fluid levels in the left hemiabdomen, proximal to mid small bowel loops. No intestinal obstruction pattern. Appendix is normal. Small hiatal hernia. ABDOMINAL WALL: Fat-containing umbilical and left inguinal hernias. LYMPH NODES: Prominent retroperitoneum and mesenteric lymph nodes. VASCULAR: Calcified plaques in the coronary arteries. Mixed plaques in the abdominal aorta wall and iliac arteries. No aneurysm or dissection abdominal aorta. PELVIC VISCERA: Absent uterus. OSSEOUS STRUCTURES: Multilevel spondylosis. Osteopenia versus osteoporosis. No acute fracture or gross listhesis. Levoconvex rotoscoliosis apex at L3. Sclerosis and vacuum phenomenon both sacroiliac joints. Hypertrophy of the facet joints, L5-S1. Bilateral breast implants. CT/CT abdomen pelvis w IV con IMPRESSION: Acute complicated diverticulitis, proximal to mid sigmoid colon with a 4 cm abscess/phlegmon. Fleischner guidelines were followed. Electronically signed by: Macario Perez MD 11/27/2024 11:01 AM EDT Dictated By: Macario Agee MD Signed By: <Electronically signed by Macario Balbuena MD in [place]> 11/27/24 1101 DD/ 1023 TD/TT: 11/27/24 1033 Contract Preparer: Assessment and Plan (1) Diverticulitis: Status: Acute Plan 69-year-old female with diverticulitis and phlegmon in the sigmoid colon. No peritoneal signs white count is normal and hemodynamically stable. We will try conservative care with NPO sips of liquids IV Cipro and Flagyl and follow serial abdominal exams. Hopefully we can get her past this episode without needing any kind of surgical intervention or even radiological intervention. If we can do this she should seriously consider carrying out elective sigmoid resection in the near future. This was generally discussed with the patient. She understands and agrees with the above plan for now. Quality Stroke Does the patient have a stroke diagnosis?: No VTE Prior VTE?: No VTE Risk Level:: Surgical - low VTE Device Contraindication: N/A - Device Ordered VTE Drug Contraindication: Treatment Not Indicated Procedures Date of Service Date of Service: 11/27/24
[2024-11-28 03:53] VITALS: BP 159/82; PULSE 79; RESP 16; TEMP 36.9; O2SAT 93
[2024-11-28] MEDS: metroNIDAZOLE/NS 500 MG/100 ML PIGGYBACK 100 MG IV ×3 (03:54→19:54)
[2024-11-28 04:19] LABS: Appearance Urine Clear; Glucose Urine UA Negative (Negative); PH 6.0 (5.0-9.0); Specific Gravity - Urine 1.015 (1.005-1.025); UMIC TRIGGER UACC YES
--- NOTE | 2024-11-28 07:01 | P.PNGS_ITS ---
Subjective Subjective Date of Service: 11/28/24 <Cuong Brandon PA-C - Last Filed: 11/28/24 09:09> 11/28/24 <Mike Haro MD - Last Filed: 11/28/24 15:47> Interval history: patient doing well, reports her pain is mild currently. Denies nausea or vomiting. endorses multiple episodes of diarrhea. denies fever or chills. She had a headache this morning, had just received tylenol <Cuong Brandon PA-C - Last Filed: 11/28/24 09:09> Physical Exam 2 Vital Signs: Vital Signs: Last Vital Signs Temp 98.5 F 11/28/24 03:53 Pulse 79 11/28/24 03:53 Resp 16 11/28/24 03:53 BP 159/82 H 11/28/24 03:53 Pulse Ox 93 11/28/24 03:53 O2 Del Method Room Air 11/28/24 03:53 BMI result Body Mass Index 27.7 <Cuong Brandon PA-C - Last Filed: 11/28/24 09:09> Const: General: comfortable and no acute distress <Cuong Brandon PA-C - Last Filed: 11/28/24 09:09> Orientation/consciousness: patient oriented x3 <JIM Stoll Last Filed: 11/28/24 09:09> Resp: Effort & Inspection: normal respiratory effort and able to speak in complete sentences <Cuong Brandon PA-C - Last Filed: 11/28/24 09:09> GI: Inspection: No distended <Cuong Brandon PA-C - Last Filed: 11/28/24 09:09> Palpation (GI): Soft to palpation, not firm, Tenderness to palpation present (GI) (mild LLQ), no guarding and not rigid <Cuong Brandon PA-C - Last Filed: 11/28/24 09:09> Neuro: General: patient oriented x3 <JIM Stoll Last Filed: 11/28/24 09:09> Objective Data Active Medications Acetaminophen (Acetaminophen 325 Mg Tablet) 650 mg PO Q6H PRN PRN Reason: Pain, Mild 1-3,fever,headache Last Admin: 11/28/24 06:41 Dose: 650 mg Documented By: SARITHA Sodium Chloride (Ns) 1,000 mls @ 100 mls/hr IVCONT .Q10H [facility] Last Admin: 11/28/24 00:10 Dose: 100 mls/hr Documented By: SARITHA Metronidazole (Flagyl) 500 mg in 100 mls @ 100 mls/hr IV Q8H [facility] Last Infusion: 11/28/24 05:00 Dose: Infused Documented By: SARITHA Ciprofloxacin (Cipro) 400 mg in 200 mls @ 200 mls/hr IV Q12H [facility] Last Infusion: 11/28/24 01:19 Dose: Infused Documented By: SARITHA Ketorolac Tromethamine (Ketorolac Tromethamine 30 Mg/Ml Vial) 15 mg IVPUSH Q6H PRN PRN Reason: Pain, Severe (Pain Scale 7-10) Stop: 12/02/24 11:52 Lorazepam (Lorazepam 1 Mg Tablet) 1 mg PO BEDTIME [facility] Last Admin: 11/27/24 21:49 Dose: 1 mg Documented By: SARITHA Ondansetron HCl (Ondansetron Hcl 4 Mg/2 Ml Vial) 4 mg IVPUSH Q8H PRN PRN Reason: Nausea and Vomiting Last Admin: 11/27/24 19:56 Dose: 4 mg Documented By: SARITHA Sodium Chloride (0.9 % Sodium Chloride Flush 3 Ml Syringe) 3 ml IVFLUSH QSHIFT [facility] Last Admin: 11/28/24 00:19 Dose: Not Given Documented By: SARITHA Non-Admin Reason: IV Running <Cuong Brandon PA-C - Last Filed: 11/28/24 09:09> Labs CBC & Chem 7: 11/27/24 07:48 11/27/24 07:48 <Cuong Brandon PA-C - Last Filed: 11/28/24 09:09> Labs: Laboratory Results - last 24 hr 11/27/24 11/27/24 11/28/24 07:48 11:33 04:01 MCV 97.4 MCH 32.5 MCHC 33.3 RDW 11.9 Plt Count 333 MPV 9.6 Immature Gran % (Auto) 0.8 H Neut % (Auto) 71.3 Lymph % (Auto) 13.7 L [place] % (Auto) 11.4 H Eos % (Auto) 2.1 Baso % (Auto) 0.7 Lymph # (Auto) 1.3 [place] # (Auto) 1.1 Eos # (Auto) 0.2 Baso # (Auto) 0.1 Abs Immat Gran (auto) 0.08 H Absolute Neuts (auto) 6.8 Absolute Nucleated RBC 0.000 Nucleated RBC % (auto) 0.0 Anion Gap 12 Estim Creat Clear Calc 74.2 Estimated GFR > 60 Random Glucose 116 H Lactic Acid 0.6 Calcium 9.8 Magnesium 2.1 Total Bilirubin 0.3 Direct Bilirubin 0.2 AST 23 ALT 29 Alkaline Phosphatase 98 Total Protein 7.2 Albumin 4.0 Lipase 16 Urine Color Yellow Urine Appearance Clear Urine pH 6.0 Ur Specific [place] 1.015 Urine Protein Negative Urine Glucose (UA) Negative Urine Ketones 15 Urine Blood Negative Urine Nitrite Negative Ur Leukocyte Esterase Trace H Urine RBC 0-2 Urine WBC 0-5 Ur Squamous Epith Cells 0-2 Urine Bacteria None Seen Hyaline Casts 0-2 <Cuong Brandon PA-C - Last Filed: 11/28/24 09:09> Procedures Date of Service Date of Service: 11/28/24 <Cuong Brandon PA-C - Last Filed: 11/28/24 09:09> 11/28/24 <Mike Haro MD - Last Filed: 11/28/24 15:47> Progress Note: A&P Assessment and plan (1) Colonic diverticular abscess: Status: Acute <Cuong Brandon PA-C - Last Filed: 11/28/24 09:09> Assessment and Plan: She says she does not really have pain but admits to some discomfort Complains of headache She has this started to have diarrhea last night Abdomen is soft, very minimal tenderness on lower abdomen , with no guarding or rebound Films reviewed with IR - abscess not drainable currently Plan to rescan tomorrow Continue IV antibiotics Okay to have clear liquids Hospitalist consult - she says she has been hypertensive here in the hospital Seen and examined independently <Mike Haro MD - Last Filed: 11/28/24 15:47> Assessment and Plan: 69 year old female admitted for management of acute diverticulitis, we are proceeding with conservative management with antibiotics and bowel rest. Patient is overall doing well, mild tenderness in LLQ, abdomen is soft and benign. Will trial clear liquid diet. Continue IV abx will repeat CT scan tomorrow. ambulation as tolerated. Pain control Clear liquids <Cuong Brandon PA-C - Last Filed: 11/28/24 09:09> Time Spent With Patient Time: Total time managing care of this patient today ____ minutes. <Cuong Brandon PA-C - Last Filed: 11/28/24 09:09> Quality Stroke Does the patient have a stroke diagnosis?: No <Cuong Brandon PA-C - Last Filed: 11/28/24 09:09> VTE Prior VTE?: No <Cuong Brandon PA-C - Last Filed: 11/28/24 09:09> VTE Risk Level:: Surgical - low <Cuong Brandon PA-C - Last Filed: 11/28/24 09:09> VTE Device Contraindication: N/A - Device Ordered <Cuong Brandon PA-C - Last Filed: 11/28/24 09:09> VTE Drug Contraindication: Treatment Not Indicated <Cuong Brandon PA-C - Last Filed: 11/28/24 09:09>
[2024-11-28 07:50] VITALS: PULSE 77; RESP 18; TEMP 36.3; O2SAT 93
[2024-11-28 07:58] VITALS: BP 152/70
--- NOTE | 2024-11-28 10:19 | HO.PM.IMCN ---
History of Present Illness Data of Consult Service Date: 11/28/24 Primary Care Provider: Unknown Physician HPI Reason for consult: Elevated BP readings without DX of HTN 69-year-old female with a past medical history of helical hernia, diverticulitis, hepatic steatosis, osteopenia, history of breast cancer with left mastectomy in 2003, depression and GERD. Patient is a former smoker quit in May 2024. She was admitted to the emergency department with left lower quadrant abdominal pain, found to have diverticulitis with a proximal mid sigmoid colon with a 4 cm abscess/phlegmon. Admitted to hospital with plans for IV antibiotics and a rescan in 48 hours. Patient is being seen for elevated blood pressure readings. Blood pressure noted to be 152/70, upon review of blood pressures here noted 140s to 150s over 80s to 90s. Patient reports that when she is feeling ill her blood pressure is high but she normally does not have high blood pressure. She follows regularly with her primary care doctor. On exam patient denies chest pain, shortness of breath, or visual changes. She reports a mild headache as she normally has coffee daily and has been unable to drink coffee. Her labs are stable, she has no tachycardia or fever. She had an EKG that demonstrated sinus tach, no evidence of ischemia. No evidence of hypertensive urgency or emergency. Patient is NPO at this time with sips of clears. She reports that she does not feel well due to being unable to eat. She reports that her abdominal pain is better, she has no fever or chills. She does not wish to consider starting blood pressure medication in the hospital and would like to follow up with her primary care doctor. Review of Systems Review of Systems: Denies any shortness of breath, chest pain, dizziness, lightheadedness, abdominal pain or discomfort, nausea vomiting or diarrhea [facility] Medical History (Updated 11/28/24 @ 10:47 by Kylie Pro DNP) Colonic diverticular abscess Umbilical hernia History of left breast cancer (~1992) Nicotine dependence, cigarettes, uncomplicated Chronic bronchitis Chronic cough Chronic allergic rhinitis Osteopenia (~2016) GERD (gastroesophageal reflux disease) Hepatic steatosis Diverticulitis Loco's esophagus Basal cell carcinoma Depression Family History Paternal Grandmother Breast cancer Surgical History History of esophagogastroduodenoscopy (EGD) History of colonoscopy History of wisdom tooth extraction History of rotator cuff surgery History of left mastectomy (~2003) History of bilateral breast implants History of back surgery History of bladder surgery History of hysterectomy (~1997) History of lumpectomy of left breast (~1992) Social History Household Members: Children Housing: House Do you presently have visiting nurse or other home services: No Alcohol intake: current Alcohol intake frequency: 0-2 drinks per day Patient Tobacco Use Status: Former Tobacco user Tobacco use type: Cigarette Cigarette Packs Per Day: 0.75 Cigarettes Per Day: 15 Years Smoked: 40 Smoked in Last 30 Days: No e-Cigarette/Vaping Use: Never Used Patient Interested in Nicotine Replacement: No Patient Given Instructions on How to Stop Smoking: No Second Hand Smoke Exposure: No Use of substances other than those prescribed or required for medical reasons: No Currently Displaying Signs/Symptoms of Drug Intoxication Withdrawal: No Have you been hit, kicked, punched, or otherwise hurt by someone within the past year? If so, by whom?: No Do you feel safe in your current relationship?: No Current Relationship Is there a partner from a previous relationship who is making you feel unsafe now?: No Are you made to feel afraid or neglected: No Advance Directives: No Advance Directives Information Provided: Yes Do you have a plan to hurt others: No Plan Recently lost weight without trying: No Nutrition Risks: No Nutritional Risk Patient : No : No Poor oral hygiene: No service: No Current occupational status: employed Sexual orientation: Straight/Heterosexual Gender identity: Female Cognitive needs: No Hearing needs: No Vision needs: Yes (reading glasses) Meds Allergies Allergy/AdvReac Type Severity Reaction Status Date / Time amoxicillin (AMOXICILLIN) Allergy Severe HIVES Verified 11/27/24 07:36 Sulfa (Sulfonamide Allergy Severe HIVES,SWELL Verified 11/27/24 07:36 Antibiotics) (SULFA ING (SULFONAMIDE ANTIBIOTICS)) morphine AdvReac Hallucinati Verified 11/27/24 11:58 ons ENVIROMENTAL Allergy Mild NASAL Uncoded 10/10/24 11:22 CONGESTION Active Medications: Current Medications Acetaminophen (Acetaminophen 325 Mg Tablet) 650 mg PO Q6H PRN PRN Reason: Pain, Mild 1-3,fever,headache Last Admin: 11/28/24 06:41 Dose: 650 mg Sodium Chloride (Ns) 1,000 mls @ 100 mls/hr IVCONT .Q10H [facility] Last Admin: 11/28/24 08:47 Dose: Not Given Metronidazole (Flagyl) 500 mg in 100 mls @ 100 mls/hr IV Q8H [facility] Last Infusion: 11/28/24 05:00 Dose: Infused Ciprofloxacin (Cipro) 400 mg in 200 mls @ 200 mls/hr IV Q12H [facility] Last Infusion: 11/28/24 01:19 Dose: Infused Ketorolac Tromethamine (Ketorolac Tromethamine 30 Mg/Ml Vial) 15 mg IVPUSH Q6H PRN PRN Reason: Pain, Severe (Pain Scale 7-10) Stop: 12/02/24 11:52 Lorazepam (Lorazepam 1 Mg Tablet) 1 mg PO BEDTIME [facility] Last Admin: 11/27/24 21:49 Dose: 1 mg Ondansetron HCl (Ondansetron Hcl 4 Mg/2 Ml Vial) 4 mg IVPUSH Q8H PRN PRN Reason: Nausea and Vomiting Last Admin: 11/27/24 19:56 Dose: 4 mg Sodium Chloride (0.9 % Sodium Chloride Flush 3 Ml Syringe) 3 ml IVFLUSH QSHIFT [facility] Last Admin: 11/28/24 08:05 Dose: Not Given Home Medications ?Medication ?Instructions ?Recorded ?Confirmed ?Last Taken ?Type cholecalciferol (vitamin D3) 10 20 mcg PO DAILY 09/18/24 11/27/24 Unknown History mcg (400 unit) tablet fluticasone propionate 50 2 spray intranasal DAILY PRN 11/27/24 11/27/24 Unknown History mcg/actuation nasal Allergy Symptoms spray,suspension Physical Exam Vital Signs and Narrative: Vital Signs: Last Vital Signs Temp 97.3 F 11/28/24 07:50 Pulse 77 11/28/24 07:50 Resp 18 11/28/24 07:50 BP 152/70 H 11/28/24 07:58 Pulse Ox 93 11/28/24 07:50 O2 Del Method Room Air 11/28/24 07:50 BMI result Body Mass Index 27.7 CONST: Alert and oriented, in NAD. Well nourished HEENT: Normocephalic, atraumatic, MMM, Eyes clear, Neck supple RESP: Lungs clear, RRR even and regular HEART:,RRR, S1, S2. No murmur, no edema GI:Abdomen Soft NT, ND. + BS times four :Deferred SKIN: Warm dry and intact, no visible lesions or rashes NEURO:CN II-XII Intact bilaterally, Sensation intact. Speech clear PSYCH: Normal affect Results Labs 11/27/24 07:48 11/27/24 07:48 Labs: Laboratory Results - last 24 hr 11/27/24 11/28/24 11:33 04:01 Lactic Acid 0.6 Urine Color Yellow Urine Appearance Clear Urine pH 6.0 Ur Specific [place] 1.015 Urine Protein Negative Urine Glucose (UA) Negative Urine Ketones 15 Urine Blood Negative Urine Nitrite Negative Ur Leukocyte Esterase Trace H Urine RBC 0-2 Urine WBC 0-5 Ur Squamous Epith Cells 0-2 Urine Bacteria None Seen Hyaline Casts 0-2 Imaging Radiologist's Impressions: Impressions Abdomen/Pelvis CT 11/27/24 10:23 IMPRESSION: Acute complicated diverticulitis, proximal to mid sigmoid colon with a 4 cm abscess/phlegmon. Fleischner guidelines were followed. Electronically signed by: Macario Perez MD 11/27/2024 11:01 AM EDT RP Assessment and Plan (1) Elevated blood pressure reading without diagnosis of hypertension: Status: Acute Plan Diverticulitis with 4 cm abscess/phlegmon Treatment per surgery team Plan for antibiotics and re scan in 48 hours. Elevated blood pressure readings without a diagnosis of hypertension Patient with elevated blood pressure readings likely due to illness. No evidence of hypertensive emergency or urgency. She remains a candidate for oral antihypertensive therapy if her blood pressures continued to be elevated While inpatient would monitor BP is every 8 hours Appropriate for outpatient follow up with her primary care Her labs are within normal limits. Thank you for allowing me to participate in the care of this patient. Signing off at this time. Please reconsult of any acute concerns or issues arise
--- NOTE | 2024-11-28 10:21 | MHC.CM.PN ---
IMM 11/28/24 DX Abscess r/t diverticulitis colon Her son is living with her. Her Dtr is very involved. She lives in [place], [place]. She is independent with all functional mobility. PCP Dr Bush retired. She has seen Dr Rosa Odonnell. Dp Home self care. Patient will arrange for her son or dtr to provide transportation home.
[2024-11-28 15:13] VITALS: PULSE 78; RESP 18; TEMP 37.2; O2SAT 96
[2024-11-28 15:17] VITALS: BP 160/82
--- NOTE | 2024-11-28 15:46 | PM.EVENT ---
Event Note Date of Service: 11/28/24 Event Note: Seen earlier for afternoon rounds Denies significant abdominal pain Feels well overall No fever Abdomen is soft, benign, nontender On clear liquids Plan for follow up CAT scan tomorrow Daughter at bedside Time Spent With Patient Time: Total time managing care of this patient today ____ minutes.
[2024-11-28 19:58] VITALS: BP 142/84; PULSE 79; RESP 18; TEMP 36.7; O2SAT 96
[2024-11-29] MEDS: metroNIDAZOLE/NS 500 MG/100 ML PIGGYBACK 100 MG IV ×3 (03:42→20:04)
[2024-11-29 04:00] VITALS: BP 150/88; PULSE 83; RESP 18; TEMP 36.7; O2SAT 95
[2024-11-29 07:28] VITALS: BP 142/78; PULSE 96; RESP 18; TEMP 36.6; O2SAT 97
--- NOTE | 2024-11-29 07:51 | P.PNGS_ITS ---
Subjective Subjective Date of Service: 11/29/24 <Cuong Brandon PA-C - Last Filed: 11/29/24 08:06> 11/29/24 <Mike Haro MD - Last Filed: 11/29/24 08:35> Patient reports: pain is less, tolerating liquids well, flatus and bowel movement <JIM Stoll Last Filed: 11/29/24 08:06> Interval history: reports she is doing well. Mild pain in the LLQ, improving. Tolerating clear liquid diet. Passing multiple liquid bowel movements. Denies nausea, vomiting, fever, chills. She has been ambulating the the bathroom, reporting frequent urination, likely because of fluids. States she is very hungry. <JIM Stoll Last Filed: 11/29/24 08:06> Physical Exam 2 Vital Signs: Vital Signs: Last Vital Signs Temp 97.8 F 11/29/24 07:28 Pulse 96 11/29/24 07:28 Resp 18 11/29/24 07:28 BP 142/78 H 11/29/24 07:28 Pulse Ox 97 11/29/24 07:28 O2 Del Method Room Air 11/29/24 07:28 BMI result Body Mass Index 27.7 <JIM Stoll Last Filed: 11/29/24 08:06> Const: General: comfortable and no acute distress <JIM Stoll Last Filed: 11/29/24 08:06> Orientation/consciousness: patient oriented x3 <JIM Stoll Last Filed: 11/29/24 08:06> Resp: Effort & Inspection: normal respiratory effort and able to speak in complete sentences <JIM Stoll Last Filed: 11/29/24 08:06> GI: Inspection: No distended <JIM Stoll Last Filed: 11/29/24 08:06> Palpation (GI): Soft to palpation, not firm, Tenderness to palpation present (GI) (mild LLQ), no guarding and not rigid <JIM Stoll Last Filed: 11/29/24 08:06> Neuro: General: patient oriented x3 <JIM Stoll Last Filed: 11/29/24 08:06> Objective Data Active Medications Acetaminophen (Acetaminophen 325 Mg Tablet) 650 mg PO Q6H PRN PRN Reason: Pain, Mild 1-3,fever,headache Last Admin: 11/29/24 02:56 Dose: 650 mg Documented By: KEY Calcium Carbonate (Calcium Carbonate 750 Mg Tab.Chew) 750 mg PO Q6H PRN PRN Reason: Heartburn Fluoxetine HCl (Fluoxetine Hcl 20 Mg Capsule) 20 mg PO DAILY [facility] Last Admin: 11/29/24 07:14 Dose: 20 mg Documented By: HA Hydromorphone HCl (Hydromorphone Hcl 0.5 Mg/0.5 Ml Syringe) 0.5 mg IVPUSH Q4H PRN; Protocol PRN Reason: Pain, Severe (Pain Scale 7-10) Sodium Chloride (Ns) 1,000 mls @ 80 mls/hr IVCONT .[id number] [facility] Last Admin: 11/29/24 02:39 Dose: 80 mls/hr Documented By: KEY Metronidazole (Flagyl) 500 mg in 100 mls @ 100 mls/hr IV Q8H [facility] Last Infusion: 11/29/24 05:07 Dose: Infused Documented By: KEY Ciprofloxacin (Cipro) 400 mg in 200 mls @ 200 mls/hr IV Q12H [facility] Last Infusion: 11/29/24 02:04 Dose: Infused Documented By: KEY Ketorolac Tromethamine (Ketorolac Tromethamine 30 Mg/Ml Vial) 15 mg IVPUSH Q6H PRN PRN Reason: Pain, Severe (Pain Scale 7-10) Stop: 12/02/24 11:52 Lorazepam (Lorazepam 1 Mg Tablet) 1 mg PO BEDTIME [facility] Last Admin: 11/28/24 19:53 Dose: 1 mg Documented By: KEY Montelukast Sodium (Montelukast Sodium 10 Mg Tablet) 10 mg PO BEDTIME [facility] Last Admin: 11/28/24 19:54 Dose: 10 mg Documented By: KEY Ondansetron HCl (Ondansetron Hcl 4 Mg/2 Ml Vial) 4 mg IVPUSH Q8H PRN PRN Reason: Nausea and Vomiting Last Admin: 11/27/24 19:56 Dose: 4 mg Documented By: SARITHA Oxycodone HCl (Oxycodone Hcl Immed Release 5 Mg Tablet) 5 mg PO Q4H PRN PRN Reason: Pain, Moderate(Pain Scale 4-6) Sodium Chloride (0.9 % Sodium Chloride Flush 3 Ml Syringe) 3 ml IVFLUSH QSHIFT [facility] Last Admin: 11/29/24 07:51 Dose: Not Given Documented By: HA Non-Admin Reason: IV Running <Cuong Brandon PA-C - Last Filed: 11/29/24 08:06> Labs CBC & Chem 7: 11/27/24 07:48 11/27/24 07:48 <Cuong Brandon PA-C - Last Filed: 11/29/24 08:06> Microbiology Microbiology Results: Microbiology 11/27/24 11:42 Blood Culture - Preliminary Blood - Venous No growth after 24 hours. 11/27/24 11:32 Blood Culture - Preliminary Blood - Venous No growth after 24 hours. <Cuong Brandon PA-C - Last Filed: 11/29/24 08:06> Procedures Date of Service Date of Service: 11/29/24 <Cuong Brandon PA-C - Last Filed: 11/29/24 08:06> 11/29/24 <Mike Haro MD - Last Filed: 11/29/24 08:35> Progress Note: A&P Assessment and plan (1) Diverticulitis of large intestine with complication: Status: Acute <Cuong Brandon PA-C - Last Filed: 11/29/24 08:06> Assessment and Plan: She denies pain Feels well Tolerating clear liquids Ambulating, looks comfortable, abdomen is soft, benign, no obvious tenderness For follow up CAT scan today IV antibiotics Seen and examined independently <Mike Haro MD - Last Filed: 11/29/24 08:35> Assessment and Plan: 69 year old female admitted for conservative management of acute diverticulitis with abscess or phlegmon collection. Overall doing well. her pain is decreased. tolerating clear liquid diet and ambulating. She feels very hungry, hopefully can advance diet pending CT scan. patient was seen by hospitalist for HTN during admission, patient has no known HTN diagnosis. Patient declined antihypertensive therapy while admitted, plans to follow up with PCP. Hospitalist consult appreciated. Her abdomen remains soft and benign, some mild pain in the LLQ. ambulation as tolerated continue IV abx Repeat CT pending clear liquid diet, possible advance this afternoon pending CT <Cuong Brandon PA-C - Last Filed: 11/29/24 08:06> Time Spent With Patient Time: Total time managing care of this patient today ____ minutes. <JIM Stoll Last Filed: 11/29/24 08:06> Quality Stroke Does the patient have a stroke diagnosis?: No <JIM Stoll Last Filed: 11/29/24 08:06> VTE Prior VTE?: No <JIM Stoll Last Filed: 11/29/24 08:06> VTE Risk Level:: Surgical - low <JIM Stoll Last Filed: 11/29/24 08:06> VTE Device Contraindication: N/A - Device Ordered <JIM Stoll Last Filed: 11/29/24 08:06> VTE Drug Contraindication: Treatment Not Indicated <JIM Stoll Last Filed: 11/29/24 08:06>
[2024-11-29 08:00] VITALS: BP 142/78; PULSE 96; RESP 18; TEMP 36.6; O2SAT 97
[2024-11-29 08:44] LABS: CDiff Gene PCR NEGATIVE (Negative)
[2024-11-29] MEDS: iohexoL 350 MG/ML 100 ML INFUS..BTL IV (10:52)
--- NOTE | 2024-11-29 14:33 | PM.EVENT ---
Event Note Date of Service: 12/01/24 Event Note: Patient is seen on afternoon rounds CT reviewed - some residual inflammatory changes in the sigmoid but no identifiable abscess No need for IR drainage at this time Abdomen remained soft, benign and very minimally tender She says she feels well overall We will continue with IV antibiotics Hopefully we can advance her diet slowly starting tomorrow Continue current care Explained plan with the patient Time Spent With Patient Time: Total time managing care of this patient today ____ minutes.
[2024-11-29 15:58] VITALS: BP 139/84; PULSE 81; RESP 18; TEMP 36.6; O2SAT 95
[2024-11-29 19:56] VITALS: BP 164/84; PULSE 86; RESP 18; TEMP 36.8; O2SAT 96
[2024-11-30 03:51] VITALS: BP 142/80; PULSE 79; RESP 16; TEMP 37.1; O2SAT 94
[2024-11-30] MEDS: metroNIDAZOLE/NS 500 MG/100 ML PIGGYBACK 100 MG IV ×3 (04:06→21:35)
[2024-11-30 06:14] LABS: Hematocrit 39.4 % (37.0-47.0); Hemoglobin 12.9 g/dl (12.0-16.0); Mean Corpuscular HGB Conc 32.7 g/dl (31.0-35.0); Mean Corpuscular Hemoglobin 31.8 pg (27.0-33.0); Mean Corpuscular Volume 97.0 fL (80.0-98.0); NRBC Abs Auto 0.000 X10*3/uL (0.0-0.012); NRBC Pct Auto 0.0 /100WBC (0.0-0.2); Platelet Count 340 X10*3/uL (160-400); Red Blood Count 4.06 X10*6/uL (4.20-5.50); White Blood Count 6.4 X10*3/uL (4.8-10.8)
[2024-11-30 06:42] LABS: Anion Gap 9 (12-20); Blood Urea Nitrogen 4 mg/dL (9-16); Calcium 8.9 mg/dL (8.4-10.2); Carbon Dioxide 25 mmol/L (22-29); Chloride 105 mmol/L (96-108); Creatinine Clr Calc Pharmacy 86.3; Estimated Glomerular Filt Rate > 60; Potassium 3.3 mmol/L (3.3-5.1); Sodium 136 mmol/L (135-145)
[2024-11-30 07:34] VITALS: BP 145/76; PULSE 83; RESP 18; TEMP 36.8; O2SAT 94
--- NOTE | 2024-11-30 07:49 | P.PNGS_ITS ---
Subjective Subjective Date of Service: 11/30/24 <Cuong Brandon PA-C - Last Filed: 11/30/24 07:56> 11/30/24 <Mike Haro MD - Last Filed: 11/30/24 08:07> Patient reports: feels better <JIM Stoll Last Filed: 11/30/24 07:56> Interval history: states she is doing well, diarrhea is improved with immodium. Denies pain. Ambulating throughout the floor. Tolerating clear diet, she is very hungry and wants to try regular diet. She wants to go home <Cuong Brandon PA-C - Last Filed: 11/30/24 07:56> Physical Exam 2 Vital Signs: Vital Signs: Last Vital Signs Temp 98.2 F 11/30/24 07:34 Pulse 83 11/30/24 07:34 Resp 18 11/30/24 07:34 BP 145/76 H 11/30/24 07:34 Pulse Ox 94 11/30/24 07:34 O2 Del Method Room Air 11/30/24 07:34 BMI result Body Mass Index 27.7 <Cuong Brandon PA-C - Last Filed: 11/30/24 07:56> Const: General: comfortable and no acute distress <JIM Stoll Last Filed: 11/30/24 07:56> Orientation/consciousness: patient oriented x3 <JIM Stoll Last Filed: 11/30/24 07:56> Resp: Effort & Inspection: normal respiratory effort and able to speak in complete sentences <Cuong Brandon PA-C - Last Filed: 11/30/24 07:56> GI: Inspection: No distended <JIM Stoll Last Filed: 11/30/24 07:56> Palpation (GI): Soft to palpation, nontender, no guarding and not rigid < JIM Stoll Last Filed: 11/30/24 07:56> Neuro: General: patient oriented x3 <JIM Stoll Last Filed: 11/30/24 07:56> Objective Data Active Medications Acetaminophen (Acetaminophen 325 Mg Tablet) 650 mg PO Q6H PRN PRN Reason: Pain, Mild 1-3,fever,headache Last Admin: 11/30/24 05:43 Dose: 650 mg Documented By: KEY Calcium Carbonate (Calcium Carbonate 750 Mg Tab.Chew) 750 mg PO Q6H PRN PRN Reason: Heartburn Fluoxetine HCl (Fluoxetine Hcl 20 Mg Capsule) 20 mg PO DAILY [facility] Last Admin: 11/29/24 07:14 Dose: 20 mg Documented By: HA Hydromorphone HCl (Hydromorphone Hcl 0.5 Mg/0.5 Ml Syringe) 0.5 mg IVPUSH Q4H PRN; Protocol PRN Reason: Pain, Severe (Pain Scale 7-10) Sodium Chloride (Ns) 1,000 mls @ 80 mls/hr IVCONT .[id number] [facility] Last Admin: 11/29/24 18:21 Dose: 80 mls/hr Documented By: HA Metronidazole (Flagyl) 500 mg in 100 mls @ 100 mls/hr IV Q8H [facility] Last Infusion: 11/30/24 05:09 Dose: Infused Documented By: KEY Ciprofloxacin (Cipro) 400 mg in 200 mls @ 200 mls/hr IV Q12H [facility] Last Infusion: 11/30/24 01:22 Dose: Infused Documented By: KEY Ketorolac Tromethamine (Ketorolac Tromethamine 30 Mg/Ml Vial) 15 mg IVPUSH Q6H PRN PRN Reason: Pain, Severe (Pain Scale 7-10) Stop: 12/02/24 11:52 Loperamide HCl (Loperamide Hcl 2 Mg Capsule) 2 mg PO Q4H PRN PRN Reason: Diarrhea Last Admin: 11/30/24 05:15 Dose: 2 mg Documented By: KEY Lorazepam (Lorazepam 1 Mg Tablet) 1 mg PO BEDTIME [facility] Last Admin: 11/29/24 20:04 Dose: 1 mg Documented By: KEY Montelukast Sodium (Montelukast Sodium 10 Mg Tablet) 10 mg PO BEDTIME [facility] Last Admin: 11/29/24 20:04 Dose: 10 mg Documented By: KEY Ondansetron HCl (Ondansetron Hcl 4 Mg/2 Ml Vial) 4 mg IVPUSH Q8H PRN PRN Reason: Nausea and Vomiting Last Admin: 11/29/24 18:21 Dose: 4 mg Documented By: HA Oxycodone HCl (Oxycodone Hcl Immed Release 5 Mg Tablet) 5 mg PO Q4H PRN PRN Reason: Pain, Moderate(Pain Scale 4-6) Sodium Chloride (0.9 % Sodium Chloride Flush 3 Ml Syringe) 3 ml IVFLUSH QSHIFT [facility] Last Admin: 11/30/24 00:22 Dose: Not Given Documented By: KEY Non-Admin Reason: IV Running <Cuong Brandon PA-C - Last Filed: 11/30/24 07:56> Labs CBC & Chem 7: 11/30/24 05:34 11/30/24 05:34 <Cuong Brandon PA-C - Last Filed: 11/30/24 07:56> Labs: Laboratory Results - last 24 hr 11/29/24 11/30/24 07:40 05:34 MCV 97.0 MCH 31.8 MCHC 32.7 RDW 11.7 Plt Count 340 MPV 9.5 Absolute Nucleated RBC 0.000 Nucleated RBC % (auto) 0.0 Anion Gap 9 L Estim Creat Clear Calc 86.3 Estimated GFR > 60 Random Glucose 109 Calcium 8.9 D C. difficile Tox B Gene NEGATIVE <Cuong Brandon PA-C - Last Filed: 11/30/24 07:56> Microbiology Microbiology Results: Microbiology 11/27/24 11:42 Blood Culture - Preliminary Blood - Venous No growth after 48 hours. 11/27/24 11:32 Blood Culture - Preliminary Blood - Venous No growth after 48 hours. <Cuong Brandon PA-C - Last Filed: 11/30/24 07:56> Procedures Date of Service Date of Service: 11/30/24 <Cuong Brandon PA-C - Last Filed: 11/30/24 07:56> 11/30/24 <Mike Haro MD - Last Filed: 11/30/24 08:07> Progress Note: A&P Assessment and plan (1) Diverticulitis of large intestine with complication: Status: Acute <Cuong Brandon PA-C - Last Filed: 11/30/24 07:56> Assessment and Plan: Says she feels well Denies any pain Hungry and wants to eat Passing flatus Abdomen is soft and benign, no significant tenderness Continue IV antibiotics Okay to slowly advance diet She wants to be discharged I told her that I would keep her at least until tomorrow Seen and examined independently <Mike Haro MD - Last Filed: 11/30/24 08:07> Assessment and Plan: 69 year old female admitted for conservative management of acute diverticulitis with abscess or phlegmon collection. Overall doing well. her pain is minimal. tolerating clear liquid diet and ambulating. She feels very hungry, will advance to regular diet. Repeat CT shows resolution of fluid collection, significant improvement. Her abdomen remains soft and benign, non tender. AM labs stable. Can likely be DC tomorrow if tolerating diet. ambulation as tolerated continue IV abx advance to regular diet <Cuong Brandon PA-C - Last Filed: 11/30/24 07:56> Time Spent With Patient Time: Total time managing care of this patient today ____ minutes. <Cuong Brandon PA-C - Last Filed: 11/30/24 07:56> Quality Stroke Does the patient have a stroke diagnosis?: No <Cuong Brandon PA-C - Last Filed: 11/30/24 07:56> VTE Prior VTE?: No <Cuong Brandon PA-C - Last Filed: 11/30/24 07:56> VTE Risk Level:: Surgical - low <Cuong Brandon PA-C - Last Filed: 11/30/24 07:56> VTE Device Contraindication: N/A - Device Ordered <Cuong Brandon PA-C - Last Filed: 11/30/24 07:56> VTE Drug Contraindication: Treatment Not Indicated <Cuong Brandon PA-C - Last Filed: 11/30/24 07:56>
--- NOTE | 2024-11-30 11:50 | MHC.CM.PN ---
Addendum entered by Meredith Benitez 11/30/24 15:13: Discharge is anticipated 12/01/24. DP home self care. Patient will arrange for her son or dtr to pick her up. Original Note: Patient is not medically cleared to discharge. She continues to require IV ABX. Her diet has been advanced. A regular diet has been ordered. DP home self care. Patient will arrange for a family member to provide transportation home.
[2024-11-30 15:46] VITALS: BP 148/62; PULSE 91; RESP 18; TEMP 37; O2SAT 96
[2024-11-30] MEDS: 0.9 % Sodium Chloride Flush 3 ML SYRINGE IVFLUSH ×2 (16:06→21:35)
[2024-11-30 19:36] VITALS: BP 122/74; PULSE 92; RESP 18; TEMP 37.3; O2SAT 97
[2024-11-30 23:20] VITALS: BP 132/78; PULSE 79; RESP 16; TEMP 37.1; O2SAT 94
[2024-12-01 03:57] VITALS: BP 144/81; PULSE 80; RESP 16; TEMP 36.8; O2SAT 96
[2024-12-01] MEDS: 0.9 % Sodium Chloride Flush 3 ML SYRINGE IVFLUSH (07:21)
[2024-12-01 07:48] VITALS: BP 162/83; PULSE 92; RESP 16; TEMP 36.2; O2SAT 94
--- NOTE | 2024-12-01 09:33 | PM.PNGS ---
Subjective Subjective Date of Service: 12/01/24 Interval history: says she feels well denies abdl pain tolerating diet some watery stools Physical Exam Vital Signs: Vital Signs: Last Vital Signs Temp 97.1 F 12/01/24 07:48 Pulse 92 12/01/24 07:48 Resp 16 12/01/24 07:48 BP 162/83 H 12/01/24 07:48 Pulse Ox 94 12/01/24 07:48 O2 Del Method Room Air 12/01/24 07:48 BMI result Body Mass Index 27.7 Const: General: comfortable and no acute distress Resp: Effort & Inspection: normal respiratory effort Cardio: Rate: regular rate GI: Palpation (GI): Soft to palpation, not firm, nontender and no guarding Objective Data Active Medications Acetaminophen (Acetaminophen 325 Mg Tablet) 650 mg PO Q6H PRN PRN Reason: Pain, Mild 1-3,fever,headache Last Admin: 11/30/24 05:43 Dose: 650 mg Documented By: KEY Calcium Carbonate (Calcium Carbonate 750 Mg Tab.Chew) 750 mg PO Q6H PRN PRN Reason: Heartburn Diphenhydramine HCl (Diphenhydramine Hcl 25 Mg Capsule) 25 mg PO Q6H PRN PRN Reason: Itching Last Admin: 11/30/24 16:05 Dose: 25 mg Documented By: GURPREET Fluoxetine HCl (Fluoxetine Hcl 20 Mg Capsule) 20 mg PO DAILY [facility] Last Admin: 12/01/24 07:20 Dose: 20 mg Documented By: GUCCI Hydromorphone HCl (Hydromorphone Hcl 0.5 Mg/0.5 Ml Syringe) 0.5 mg IVPUSH Q4H PRN; Protocol PRN Reason: Pain, Severe (Pain Scale 7-10) Metronidazole (Flagyl) 500 mg in 100 mls @ 100 mls/hr IV Q8H [facility] Last Admin: 12/01/24 03:39 Dose: Not Given Documented By: GENTRY Non-Admin Reason: Patient Refused Ciprofloxacin (Cipro) 400 mg in 200 mls @ 200 mls/hr IV Q12H [facility] Last Infusion: 12/01/24 03:18 Dose: Infused Documented By: GENTRY Ketorolac Tromethamine (Ketorolac Tromethamine 30 Mg/Ml Vial) 15 mg IVPUSH Q6H PRN PRN Reason: Pain, Severe (Pain Scale 7-10) Stop: 12/02/24 11:52 Loperamide HCl (Loperamide Hcl 2 Mg Capsule) 2 mg PO Q4H PRN PRN Reason: Diarrhea Last Admin: 12/01/24 07:20 Dose: 2 mg Documented By: GUCCI Lorazepam (Lorazepam 1 Mg Tablet) 1 mg PO BEDTIME [facility] Last Admin: 11/30/24 21:35 Dose: 1 mg Documented By: GENTRY Montelukast Sodium (Montelukast Sodium 10 Mg Tablet) 10 mg PO BEDTIME [facility] Last Admin: 11/30/24 21:35 Dose: 10 mg Documented By: GENTRY Ondansetron HCl (Ondansetron Hcl 4 Mg/2 Ml Vial) 4 mg IVPUSH Q8H PRN PRN Reason: Nausea and Vomiting Last Admin: 11/29/24 18:21 Dose: 4 mg Documented By: HA Oxycodone HCl (Oxycodone Hcl Immed Release 5 Mg Tablet) 5 mg PO Q4H PRN PRN Reason: Pain, Moderate(Pain Scale 4-6) Sodium Chloride (0.9 % Sodium Chloride Flush 3 Ml Syringe) 3 ml IVFLUSH QSHIFT [facility] Last Admin: 12/01/24 07:21 Dose: 3 ml Documented By: GUCCI Labs 11/30/24 05:34 11/30/24 05:34 Procedures Date of Service Date of Service: 12/01/24 Progress Note: A&P Assessment and plan (1) Diverticulitis of large intestine with complication: Status: Acute Assessment and Plan: clinically doing very well good GI function no pain or tenderness she wants to go home abd soft and benign ok to dc home on oral abx she understands risks of recurrent episodes she can ffup with me on a prn basis she says she sees Dr Lake regularly Time Spent With Patient Time: Total time managing care of this patient today ____ minutes. Quality Stroke Does the patient have a stroke diagnosis?: No VTE Prior VTE?: No VTE Risk Level:: Surgical - low VTE Device Contraindication: N/A - Device Ordered VTE Drug Contraindication: Treatment Not Indicated
--- NOTE | 2024-12-05 14:24 | PM.DS ---
DS: Providers Provider Date of Service: 12/01/24 Date of admission: 11/27/24 11:43 Date of discharge: 12/01/24 Primary care physician: ROB oTpete Admitting clinician: Temitope Gonzalez Attending physician on admission: Temitope Gonzalez Consults: 11/28/24 08:19 Consult to Hospitalist Routine Comment: Consulting Provider: [facility] [place] [place] Hospitalists Reason For Exam: HTN, not on meds Attending physician on discharge: Mike Haro DS: Diagnosis Discharge Diagnosis (1) Diverticulitis of large intestine with complication: Status: Acute DS: Summary Hospital Course Hospital Course: admission HPI: 69 year old female who comes into the emergency room because over the last couple of days she has been having some abdominal pain in the lower abdominal area. She had been seeing Dr. Lake for some GI issues recently and she is known to have significant diverticulosis. She says he has only had 1 really bad attack of diverticulitis in the past. However she has been constipated and she has been taking meds 2 have softer bowel movements. However recently she started having more chills and not feeling well and as a result came into the emergency room. Here she was tender in the left lower quadrant no significant guarding or rebound and labs were relatively within normal limits and normal white count. She did have a CT scan of her abdomen and pelvis which shows moderate sigmoid diverticulosis with a collection which maybe an abscess/phlegmon area. This is about 4 cm in size. It was reviewed with Radiology team and unfortunately they do not feel that it is amenable for any type of drainage at this point. Patient otherwise is hemodynamically stable so plan to admit just sips of clear liquids and IV antibiotics. hospital course: On the second day of admission, patient was doing well. Had some mild LLQ abdominal pain, watery stools. She remained on clear liquids and IV abx. She had a repeat CT scan on 11/29, showing that the abscess/phlegmon had resolved. Her diet was advanced, she tolerated this well. Continued to improve, abdomen was soft and benign. She was found to be hypertensive during the admission, without a previosu diagnosis. hospitalist was consulted and the patient declined intervention while admitted, pateint plans to f/u with pcp for management. On 11/30, patient continued to have large voluems of liquid stools, c diff was ordered and was negative, she was given imodium which helped improve her diarrhea. Abdominal exam remained soft and benign. on 12/01 patient felt ready to go home, will continue oral antibiotics at home. At the time of discharge the patients abdominal exam was soft and benign, and she was in stable condition. Status at Discharge Functional status at discharge: independent ambulation Overall status at discharge: patient is progressing back to baseline Time Attestation Discharge Coordination Time (in mins): 29 Quality: Safe Use of Opioids Does Pt have an Active Cancer Diagnosis on the Problem List?: No Quality: Stroke Does the patient have a stroke diagnosis?: No Physical Exam Vital Signs: Vital Signs: Last Vital Signs Temp 97.1 F 12/01/24 07:48 Pulse 92 12/01/24 07:48 Resp 16 12/01/24 07:48 BP 162/83 H 12/01/24 07:48 Pulse Ox 94 12/01/24 07:48 O2 Del Method Room Air 12/01/24 07:48 BMI result Body Mass Index 27.7 Const: General: comfortable and no acute distress Orientation/consciousness: patient oriented x3 Resp: Effort & Inspection: normal respiratory effort and able to speak in complete sentences GI: Inspection: No distended Palpation (GI): Soft to palpation, not firm, Tenderness to palpation present (GI) (very mild in LLQ), no guarding and not rigid Neuro: General: patient oriented x3 Discharge Plan Discharge Anticipated Discharge Date/Time: 12/01/24 08:27 Patient Disposition: Home, Self-Care Discharge Diagnosis: acute diverticulitis Referrals: Physician,Unknown J [Physician, Medical] - 1 Week Discharge Medications: New metronidazole 500 mg tablet 500 mg PO BID 5 Days Qty: 10 0RF ciprofloxacin HCl 500 mg tablet 500 mg PO BID 5 Days Qty: 10 0RF Continued montelukast 10 mg tablet 10 mg PO BEDTIME Qty: 30 10RF alprazolam 0.25 mg tablet 0.25 mg PO BID PRN (Reason: anxiety) Qty: 60 1RF fluticasone propionate 50 mcg/actuation spray,suspension 2 spray intranasal DAILY PRN (Reason: Allergy Symptoms) cholecalciferol (vitamin D3) 10 mcg (400 unit) tablet 20 mcg PO DAILY simvastatin 10 mg tablet 10 mg PO BEDTIME Qty: 90 3RF cetirizine 10 mg tablet 10 mg PO DAILY PRN (Reason: for allergies) Qty: 90 3RF fluoxetine 20 mg capsule 20 mg PO DAILY Qty: 90 3RF Discontinued ciprofloxacin HCl 500 mg tablet 500 mg PO Q12H 10 Days Qty: 20 0RF Rx Instructions: End date 12/05/24 metronidazole 500 mg tablet 500 mg PO BID 10 Days Qty: 20 0RF Rx Instructions: End date 12/05/24 Discharge Orders: Discharge Order (Routine); Ordered 12/01/24 Ordered By: Mike Haro Diet: Advance to usual diet Activity on Discharge: As tolerated Stand Alone Forms: Patient Portal Discharge page Print Language: Telugu Activity Restrictions/Additional Instructions: Please reach out to the office or be seen at the emergency department if you develop: -Fever >101.5 -Increasing pain or swelling of the area -You develop nausea or vomiting Care Plan Goals: return to baseline level of health Health Concerns: diverticulosis with recurrent diverticulitis Plan of Treatment: continue 5 days of oral antibiotics at home follow up with PCP regarding elevated blood pressure Assessment: patient doing well Discharge Date/Time: 12/01/24 10:10
== END 2024-12-01 10:10 | disposition home or self-care (01) | DRG 392 ==
LOC: HO.ED 12:21 → HO.EDOVER 12:28 → HO.S3 14:44
PROVIDERS: Emergency Medicine; Physician Assistant Medical; Surgery; Admitting Provider Surgery; Emergency Provider Emergency Medicine Emergency Medical Services; PCP Physician Assistant; Visit Provider Surgery
DX: K57.20 Diverticulitis of large intestine with perforation and abscess without bleeding (principal); R03.0 Elevated blood-pressure reading, without diagnosis of hypertension; Z87.891 Personal history of nicotine dependence; Z79.899 Other long term (current) drug therapy
CPT/HCPCS: 36415; 74177; 80048; 80076; 81001; 83605; 83690; 83735; 85025; 85027; 87040; 87493; 93005; 99285; J0744; J1836; J2405; Q9967

== ENCOUNTER → 2024-11-27 07:34 | Outpatient (BNV) | payer MEDICARE, SELFPAY | PROVIDERS: Admitting Provider Surgery; Emergency Provider Emergency Medicine Emergency Medical Services; Visit Provider Internal Medicine Cardiovascular Disease | DX: R00.0 Tachycardia, unspecified (principal) | CPT/HCPCS: 93010 ==

== ENCOUNTER → 2024-11-27 07:42 | Outpatient (BNV) | payer MEDICARE, SELFPAY | PROVIDERS: Emergency Provider Emergency Medicine Emergency Medical Services; Visit Provider Radiology Diagnostic Radiology | DX: K57.20 Diverticulitis of large intestine with perforation and abscess without bleeding (principal); K63.0 Abscess of intestine | CPT/HCPCS: 74177 ==

== ENCOUNTER 2024-11-27 11:43 | Outpatient (BNV) | payer MEDICARE, SELFPAY | END 2024-11-29 08:00 | PROVIDERS: Admitting Provider Surgery; Emergency Provider Emergency Medicine Emergency Medical Services; PCP Internal Medicine; Visit Provider Radiology Diagnostic Radiology | DX: K57.20 Diverticulitis of large intestine with perforation and abscess without bleeding (principal) | CPT/HCPCS: 74177 ==

== ENCOUNTER → 2024-11-27 11:43 | Outpatient (BNV) | payer MEDICARE, SELFPAY | PROVIDERS: Admitting Provider Surgery; Emergency Provider Emergency Medicine Emergency Medical Services; Visit Provider Nurse Practitioner Family | DX: R03.0 Elevated blood-pressure reading, without diagnosis of hypertension (principal) | CPT/HCPCS: 99222 ==

== ENCOUNTER → 2024-11-27 11:43 | Outpatient (BNV) | payer MEDICARE, SELFPAY | PROVIDERS: Admitting Provider Surgery; Emergency Provider Emergency Medicine Emergency Medical Services; Visit Provider Surgery | DX: K57.20 Diverticulitis of large intestine with perforation and abscess without bleeding (principal) | CPT/HCPCS: 99222; 99232; 99499 ==

== ENCOUNTER 2024-12-07 14:55 | Outpatient (AMB) | payer MEDICARE, SELFPAY ==
--- OUTSIDE RECORDS SUMMARY | 2024-02-16 09:55 | XMS_ITS ---
Author Organization [facility] Address [address] [facility] [address] [place] [phone] Care Team Providers Care Cellar Supervisor Name Role Phone THANIA SARGENT Primary Care Provider Rojelio Cooper Jr Unavailable REASON FOR VISIT Patient presents today for barretts esophagus Encounters Encounter Location Date Provider Diagnosis [facility] [address] [facility] [address] [place] [phone] 02/16/2024 Rojelio Lake Jr Plan Of Treatment Next Appt Details Provider Name:Rojelio pena Jr, 01/04/2025 09:40:00 AM, [address] [facility], [address], [place], [address], Progress Notes * SABINE TOUSSAINT CDOB:1955 (69 yo F)Acc No.[id number]:02/16/2024 Progress Notes Patient: SABINE KELLER Provider: Rocio Lake MD :1955 A ge:68 Y S ex:Female Date:02/16/2024 Address:[address] [place], [place] [id number] Pcp:THANIA SARGENT Subjective: * Chief Complaints: * [...] 02/16/2024 Generated for Bebe neville/Anushka/Dariel on: 0 12/07/2024 02:58 PM EDT
--- NOTE | 2024-12-07 14:57 | MHC.PC.OV ---
Vital Signs 12/07/24 15:06 Height 5 ft 4.5 in Weight 70.76 kg BMI 26.4 BP 110/64 Blood Pressure Location Rt brachial Position Sitting Respiration 17 Pulse 106 H Pulse Source Pulse Oximeter Temp 97.7 F Temp Source Temporal Artery Scan Pulse Oximetry (%) 98 Oxygen Delivery Method Room Air Intake [place] [facility] [place] Skid Worker Required: No Accompanied by: Self / Same As Patient Allergies amoxicillin (AMOXICILLIN) Allergy (Severe, Verified 12/07/24 14:57) HIVES Sulfa (Sulfonamide Antibiotics) (SULFA (SULFONAMIDE ANTIBIOTICS)) Allergy (Severe, Verified 12/07/24 14:57) HIVES,SWELLING morphine Adverse Reaction (Verified 12/07/24 14:57) Hallucinations ENVIROMENTAL Allergy (Mild, Uncoded 10/10/24 11:22) NASAL CONGESTION Medication List - Last Reconciled 12/07/24 by ROB Topete alprazolam 0.25 mg PO ONCE PRN calcium carb, citrate, malate mg PO cetirizine 10 mg PO DAILY PRN cholecalciferol (vitamin D3) 20 mcg PO DAILY ciprofloxacin HCl 500 mg PO BID 5 days fluoxetine 20 mg PO DAILY metronidazole 500 mg PO BID 5 days montelukast 10 mg PO BEDTIME Tobacco use date assessed: 08/30/24 Dental Screening Dental Screen Date: 08/30/24 HPI HPI Comments History of Present Illness Details 69-year-old female with history of diverticulitis, hepatic steatosis, GERD, osteopenia, mood disorder presents to the office today for posterior evaluation. She had presented to the ED due to lower abdominal pain. She had been seen by Dr. Lake in the past with colonoscopies revealing significant diverticulosis. She has had history of diverticulitis. She had been constipated prior to arrival to the ED but began developing low-grade fever and chills.. She was started on IV antibiotics and did began experiencing watery diarrhea. She was on clear liquids as well as the IV antibiotics. CT scan head initially showed a complicated diverticulitis with abscess/phlegmon which had resolved on follow-up CT scan. Diet was successfully advanced with good tolerance. She had been hypertensive during admission but declined treatment and blood pressures in the office today have normalized. She was managed conservatively and did not require any surgical intervention. GI panel and C diff were negative. She was discharged with Cipro and Flagyl. Reports she is still having diarrhea from these medications but is reporting improvement in her symptoms. She still has some mild discomfort in the lower abdomen and feels fatigued but other than this is feeling well. She does have upcoming appointment with Dr. Lake in December. Last colonoscopy was in 2023. ROS: General: No fevers, malaise, unintentional weight loss Cardiovascular: No chest pain, palpitations, or leg edema Respiratory: No shortness of breath, wheezing, cough GI: see hpi Neuro: No headaches, weakness, paresthesias Skin: No rashes or lesions EXAM: Constitutional - Awake and Alert, No apparent distress Eyes - PERRL Cardiovascular - S1S2, RRR, No edema Respiratory - Normal lung expansion, Normal respiratory effort, No respiratory distress, CTA bilaterally Abd - soft, nontender to palpation, BS x4, no guarding or rebound Extremities - no calf tenderness bilaterally, no swelling Skin - Warm/Dry Neurological - Alert & oriented x3 Psychological - Appropriate affect [facility] Medical History (Updated 11/28/24 @ 10:47 by Kylie Pro DNP) Colonic diverticular abscess Umbilical hernia History of left breast cancer (~1992) Nicotine dependence, cigarettes, uncomplicated Chronic bronchitis Chronic cough Chronic allergic rhinitis Osteopenia (~2016) GERD (gastroesophageal reflux disease) Hepatic steatosis Diverticulitis Loco's esophagus Basal cell carcinoma Depression Surgical History (Updated 12/06/24 @ 17:01 by Amita Taylor) History of esophagogastroduodenoscopy (EGD) History of colonoscopy (~11/09/23) History of wisdom tooth extraction History of rotator cuff surgery History of left mastectomy (~2003) History of bilateral breast implants History of back surgery History of bladder surgery History of hysterectomy (~1997) History of lumpectomy of left breast (~1992) Family History Paternal Grandmother Breast cancer Social History Household Members: Children Housing: House Do you presently have visiting nurse or other home services: No Alcohol intake: current Alcohol intake frequency: 0-2 drinks per day Patient Tobacco Use Status: Former Tobacco user Tobacco use type: Cigarette Cigarette Packs Per Day: 0.75 Cigarettes Per Day: 15 Years Smoked: 40 e-Cigarette/Vaping Use: Never Used Second Hand Smoke Exposure: No service: No Current occupational status: employed Sexual orientation: Straight/Heterosexual Gender identity: Female Cognitive needs: No Hearing needs: No Vision needs: Yes (reading glasses) Female Reproductive History Menstrual Age of Menarche: 14 Questionnaire PHQ-9 Over the last 2 weeks, how often have you been bothered by any of the following problems? 1. Little interest or pleasure in doing things: several days 2. Feeling down, depressed, or hopeless: not at all 3. Trouble falling or staying asleep, or sleeping too much: several days 4. Feeling tired or having little energy: several days 5. Poor appetite or overeating: several days 6. Feeling bad about yourself - or that you are a failure or have let yourself or your family down: not at all 7. Trouble concentrating on things, such as reading the newspaper or watching television: not at all 8. Moving or speaking so slowly that other people could have noticed. Or the opposite - being so fidgety or restless that you have been moving around a lot more than usual: several days 9. Thoughts that you would be better off or of hurting yourself in some way: not at all Total score: 5 Source: Developed by Drs. Francisco Hammonds, Nadine Beal, Harsha Hernandez and colleagues, with an educational stefanie from [employer]. Thrive Questionnaire Date Thrive assessed: 12/07/24 I am a: Patient What is your living situation today?: I have a steady place to live Within the past 12 months, did the food you bought not last and you didn't have the money to get more?: Never true Within the past 12 months, did you worry whether your food would run out before you got money to buy more?: Never true Do you have trouble paying for medicines?: No Do you have trouble getting transportation to medical appointments?: No Do you have trouble paying your heating and electricity bill?: No Do you have trouble taking care of your child, family member or friend?: Yes Do you have trouble with day-to-day activities such as bathing, preparing meals, shopping, managing finances, etc.?: No Are you currently unemployed and looking for a job?: No Are you interested in more education?: No THRIVE Score: 0 AUDIT C Alcohol Use Questionnaire (AUDIT-C) 1. How often do you have a drink containing alcohol?: 4 or more times a week 2. How many drinks containing alcohol do you have on a typical day when you are drinking?: 1 or 2 Total Score: 4 KWASI-7 AMB Questionnaire KWASI-7 Date KWASI - 7 assessed: 12/07/24 Feeling nervous, anxious, or on edge: 1 = Several days Not being able to stop or control worryin = Several days Worrying too much about different things: 1 = Several days Trouble relaxin = Several days Being so restless that it is hard to sit still: 1 = Several days Becoming easily annoyed or irritable: 0 = Not at all Feeling afraid as if something awful might happen: 0 = Not at all Total KWASI-7 score (0-4 normal; 5-9 mild; 10-14 moderate; 15-21 severe): 5 Source: Developed by Drs. Francisco Hammonds, Nadine Beal, Harsha Hernandez and colleagues, with an educational stefanie from [employer]. Physical exam (Primary Care) Vital Signs: Last Vital Signs Temp 97.7 F 12/07/24 15:06 Pulse 106 H 12/07/24 15:06 Resp 17 12/07/24 15:06 BP 110/64 12/07/24 15:06 Pulse Ox 98 12/07/24 15:06 Oxygen Delivery Method Room Air 12/07/24 15:06 BMI result Body Mass Index 26.4 Tobacco/Smoking Status: Tobacco use Status Tobacco use date assessed 08/30/24 12/07/24 15:00 Patient Tobacco Use Status Former Tobacco user 12/07/24 15:00 Tobacco use type Cigarette 12/07/24 15:00 e-Cigarette/Vaping Use Never Used 12/07/24 15:00 PHQ-9: PHQ-9 Score PHQ-9: Total score 5 12/07/24 15:31 Thrive Assessment: Date of Thrive Assessment Date Thrive assessed 12/07/24 12/07/24 15:31 Coding Level of Care Code Est Pt Level 4 (73300) Complex EM visit Add On G2211 Diagnoses Diverticulitis of large intestine with complication K57.32 Assessment & Plan Assessment & Plan (1) Diverticulitis of large intestine with complication: Code(s): K57.32 - Diverticulitis of large intestine without perforation or abscess without bleeding Category: Medical Plan: General surgery H&P, discharge summary, CT scan abdomen/pelvis x2 and labs reviewed. Improvement in symptoms. Advised to continue antibiotics as prescribed. Can use Imodium as needed for ongoing diarrhea. She should follow-up with gastroenterology as scheduled. Recommend activity as tolerated. Plan Follow-up in the office as scheduled. Orders: Orders Complete Blood Count Auto Diff Today ROB Topete K76.0 - Fatty (change of) liver, not elsewhere classified, M85.89 - Other specified disorders of bone density and structure, multiple sites, R03.0 - Elevated blood-pressure reading, without diagnosis of hypertension, R73.03 - Prediabetes Liver Panel Today ROB Topete K76.0 - Fatty (change of) liver, not elsewhere classified, M85.89 - Other specified disorders of bone density and structure, multiple sites, R03.0 - Elevated blood-pressure reading, without diagnosis of hypertension, R73.03 - Prediabetes Basic Metabolic Panel Today ROB Topete K76.0 - Fatty (change of) liver, not elsewhere classified, M85.89 - Other specified disorders of bone density and structure, multiple sites, R03.0 - Elevated blood-pressure reading, without diagnosis of hypertension, R73.03 - Prediabetes Lipid Panel Today ROB Topete K76.0 - Fatty (change of) liver, not elsewhere classified, M85.89 - Other specified disorders of bone density and structure, multiple sites, R03.0 - Elevated blood-pressure reading, without diagnosis of hypertension, R73.03 - Prediabetes Hemoglobin A1c Today ROB Topete K76.0 - Fatty (change of) liver, not elsewhere classified, M85.89 - Other specified disorders of bone density and structure, multiple sites, R03.0 - Elevated blood-pressure reading, without diagnosis of hypertension, R73.03 - Prediabetes Medications: Changed From alprazolam 0.25 mg PO BID PRN 60 tabs 1RF anxiety To alprazolam 0.25 mg PO ONCE PRN Adebayo Yin MD
[2024-12-07 15:06] VITALS: BP 110/64; PULSE 106; RESP 17; TEMP 36.5; O2SAT 98; BMI 26.4
== END 2024-12-07 15:31 | disposition home or self-care (01) ==
LOC: HO.HMCHD 14:56
PROVIDERS: PCP Physician Assistant; Visit Provider Physician Assistant
DX: K57.32 Diverticulitis of large intestine without perforation or abscess without bleeding (principal)

== ENCOUNTER → 2024-12-07 14:55 | Outpatient (BNVA) | payer MEDICARE, SELFPAY | PROVIDERS: PCP Physician Assistant; Visit Provider Physician Assistant | DX: Z09 Encounter for follow-up examination after completed treatment for conditions other than malignant neoplasm (principal); K57.32 Diverticulitis of large intestine without perforation or abscess without bleeding; Z13.31 Encounter for screening for depression; Z13.30 Encounter for screening examination for mental health and behavioral disorders, unspecified | CPT/HCPCS: 96127; 99212 ==

== ENCOUNTER 2025-01-22 07:17 | Outpatient (REF) | payer MEDICARE, SELFPAY ==
--- OUTSIDE RECORDS SUMMARY | 2023-11-09 09:40 | XMS_ITS ---
Author Organization [facility] Address [address] [place] [phone] Care Team Providers Care Manager Market Development Name Role Phone THANIA SARGENT Primary Care Provider Rojelio Cooper Jr Unavailable REASON FOR VISIT periumbilical pain Problems Problem Type SNOMED Code ICD Code Onset Dates Problem Status W/U Status Risk Notes Problem Loco esophagus (121563811) Loco esophagus (K22.70) Active confirmed Encounters Encounter Location Date Provider Diagnosis [facility] [place] Outpatient [address] [place] [phone] 11/09/2023 Rojelio Lake Jr Colon cancer screening [...] periumbilical (ICD-10 - R10.33) Plan Of Treatment Next Appt Details Provider Name:Rojelio pena Jr, 02/13/2025 11:00:00 AM, [address] [place] [address], [address], [place], [phone], Progress Notes * SABINE TOUSSAINT CDOB:1955 (69 yo F)Acc No.[id number]:11/09/2023 EGD and COL/MAC Patient: SABINE KELLER Provider: Rocio Lake MD :1955 A ge:68 Y S ex:Female Date:11/09/2023 Address:[address] [place], [place] [phone] Pcp:THANIA SARGENT Subjective: * Chief Complaints: * 1 . Periumbilical pain. * Medical History: Objective: * Vitals: Assessment: * Assessment: 1. C olon cancer screening - Z12.11 (Primary) 2 . C olon polyps - K63.5? 3. B arrett esophagus - K22.70 4 . A bdominal pain, periumbilical - R10.33 Plan: * Treatment: * Procedure Codes: 4 5385 LESION REMOVAL COLONOSCOPY, 82133 UPPER GI ENDOSCOPY, BIOPSY * * The named appointment provid er may or may not be the originator of this progress note, and it is not deemed complete until electronically signed by the appointment provider. Sign off status: Pending * Provider: Rocio Lake MD Date: 0 11/09/2023 Generated for Bebe neville/Anushka/Theronsmitting on: 0 01/22/2025 07:20 AM EDT
--- OUTSIDE RECORDS SUMMARY | 2024-02-16 09:55 | XMS_ITS ---
Author Organization [facility] Address [address] [facility] [address] [place] [phone] Care Team Providers Care Cartoonist Special Effects Name Role Phone THANIA SARGENT Primary Care Provider Rojelio oCoper Jr Unavailable REASON FOR VISIT Patient presents today for barretts esophagus Encounters Encounter Location Date Provider Diagnosis [facility] [address] [facility] [facility] [address] [place] [phone] 02/16/2024 Rojelio Lake Jr Plan Of Treatment Next Appt Details Provider Name:Rojelio pena Jr, 02/13/2025 11:00:00 AM, [address] [facility] [facility], [address], [place], [address], Progress Notes * SABINE TOUSSAINT CDOB:1955 (69 yo F)Acc No.[id number]:02/16/2024 Progress Notes Patient: SABINE KELLER Provider: Rocio Lake MD :1955 A ge:68 Y S ex:Female Date:02/16/2024 Address:[address] [place], [place] [id number] Pcp:THANIA SARGENT Subjective: * Chief Complaints: * 1 . Patient presents today for barretts esophagus. * Medical History: Objective: * Vitals: Assessment: Plan: * Treatment: * * The named appointment provid er may or may not be the originator of this progress note, and it is not deemed complete until electronically signed by the appointment provider. Sign off status: Pending * Provider: Rocio Lake MD Date: 0 02/16/2024 Generated for Bebe neville/Anushka/Dariel on: 0 01/22/2025 07:20 AM EDT
--- OUTSIDE RECORDS SUMMARY | 2025-01-04 05:40 | XMS_ITS ---
Author Organization [facility] Address [address] [facility] [address] [place] [phone] Care Team Providers Care Dental Practitioner Name Role Phone THANIA SARGENT Primary Care Provider Rojelio Cooper Jr Unavailable REASON FOR VISIT Patient presents today for diverticulitis Encounters Encounter Location Date Provider Diagnosis [facility] [address] [facility] [address] [place] [phone] 01/04/2025 Rojelio Lake Jr Plan Of Treatment Next Appt Details Provider Name:Rojelio pena Jr, 02/13/2025 11:00:00 AM, [address] [facility], [address], [place], [address], Progress Notes * SABINE TOUSSAINT CDOB:1955 (69 yo F)Acc No.[id number]:01/04/2025 Progress Notes Patient: SABINE KELLER Provider: Rocio Lake MD :1955 A ge:69 Y S ex:Female Date:01/04/2025 Address:[address] [place], [place] [id number] Pcp:THANIA SARGENT Subjective: * Chief Complaints: * [...] MD Date: 0 01/04/2025 Generated for Bebe neville/Anushka/Dariel on: 0 01/22/2025 07:20 AM EDT
--- NOTE | ~2025-01-22 | CT_ITS ---
EXAMINATION: CT ABDOMEN AND PELVIS WITH CONTRAST CLINICAL INFORMATION: Diverticulitis of large intestine without perforation or abscess COMPARISON: November 29, 2024 TECHNIQUE: Multidetector volumetric images were obtained from the superior aspect of the liver through the pubic symphysis following administration 85 mL of Omnipaque 350 intravenous contrast. Sagittal and coronal reformatted images were obtained on the technologist's workstation. Oral contrast: Present This CT examination was performed using dose optimization techniques as appropriate, variously including the following: *Automated exposure control *Adjustment of mA and/or kV according to patient size (this includes techniques or standardized protocols for targeted exams where dose is matched to indication/reason for exam; i.e. extremities or head) *Use of iterative reconstruction technique DLP: 526 mGY*cm FINDINGS: LUNG BASES: The visualized lung bases are unremarkable. LIVER, GALLBLADDER, AND BILIARY TREE: There is decreased attenuation diffusely through the liver. The gallbladder is unremarkable with no evidence of radiopaque gallstones, gallbladder wall thickening, or obvious pericholecystic inflammatory changes. PANCREAS: Multifocal punctate calcifications are evident in the pancreas consistent with changes related to chronic pancreatitis. SPLEEN: Unremarkable. ADRENAL GLANDS: Unremarkable. KIDNEYS AND URETERS: 2 small nonobstructing stones are again noted in the lower pole left kidney. There are small low attenuating lesions in both kidneys, likely stable renal cysts. BLADDER: Bladder is partially empty but grossly normal. GASTROINTESTINAL TRACT: Diverticulosis is present throughout the colon, and most pronounced in the descending and sigmoid colon. There is mild residual wall thickening in the sigmoid colon near junction with descending colon with resolved fat stranding in the adjacent mesentery. ABDOMINAL WALL: Supra-umbilical hernia with hernia sac measuring 2.7 cm superior-inferior is again identified. Small direct inguinal hernia on the left containing adipose tissue is unchanged. LYMPH NODES: Again noted are shotty periaortic lymph nodes in the abdomen. VASCULAR: Moderate vascular calcifications are present. PELVIC VISCERA: The uterus is surgically absent. Ovaries are unremarkable. OSSEOUS STRUCTURES: Mild to moderate degenerative changes are present in the lower lumbar spine. There is vacuum phenomenon and small marginal osteophytes involving bilateral SI joints. CT/CT abdomen pelvis w IV con IMPRESSION: Continued improvement in changes of diverticulitis involving sigmoid colon, near junction with descending colon. Fat stranding has resolved. There is persistent bowel wall thickening. Stable supra-umbilical and left inguinal hernias Stable small nonobstructing stones (2) in the lower left kidney. Changes from chronic pancreatitis. Hepatic steatosis Fleischner guidelines were followed. Electronically signed by: Florin Ruano MD 01/22/2025 04:39 PM EDT RP
--- OUTSIDE RECORDS SUMMARY | 2025-01-22 07:20 | XMS_ITS | Patient Health Record ---
Author Organization [facility] Address [address] [place] [address] Care Team Providers Care Public Affairs Officer Name Role Phone THANIA SARGENT Primary Care Provider Rojelio Cooper Jr Unavailable [phone] Allergies Allergen (clinical drug ingredient) Drug/Non Drug Allergy documented on EMR Reaction Allergy Type Onset Date Status seasonal (uncoded) Unknown Allergy A ctive Reason For Referral No Information Medications Medication SIG (Take, Route, Frequency, Duration) Notes Start Date End Date Status Probiotic 250 MG as directed Orally Active Montelukast Sodium 10 MG Oral for 30 Active PROzac 20 MG 1 capsule Orally Onc e a day for 30 day(s) Active Fluticasone Propionate 50 MCG/ACT Nasal for 30 Active Multi For Her - as directed Orally Active FLUoxetine HCl 20 MG Oral for 90 Active Simvastatin 20 MG 1 tablet in the even ing Orally Once a day for 30 day(s) Active Fluconazole 200 MG 1 tablet Orally radha y for 14 days 11/16/2023 Active Azithromycin 250 MG Oral for 28 Active Benzonatate 200 MG Oral for 30 Active Breo Ellipta 200-25 MCG/ACT Inhalation for 30 Active Calcium 1 tab Oral for 14 days Active Ondansetron HCl Not- Taking Allergy 10 MG 1 tablet Orally Once a day for 30 day(s) Active ALPRAZolam prn Active Flomax Active Immunizations Vaccine Route Administration Date Status Comme nts Influenza Unknown 03/08/2018 Administered Influenza Unknown 02/20/2019 Administered Influenza Unknown 04/13/2022 Administered Influenza Unknown 02/08/2023 Administered Influenza Unknown 03/14/2024 Administered Social History Tobacco Use: Social History Observation Description Date Details (start date - stop date) Former Smoker NA - NA Alcohol Screen Question Answer Notes Did you [...] Never (0 point) Points 4 Interpretation Positive Tobacco Control (Standard) Question Answer Notes Tobacco use: Former smoker Problems Problem Type SNOMED Code ICD Code Onset Dates Problem Status W/U Status Risk Notes Problem 216343968 Colon cancer screening (Z12.11) Active confirmed Problem 5079837 Diverticulitis o f large intestine without perforation or abscess without bleeding (K57.32) Active confirmed Problem 376695519 Periumbilical abdominal pain (R10.33) Active confirmed Problem 459767793 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) Active confirmed Problem Gas (80547390) Gas (R14.3) Active confirmed Problem Change in bowel function (R19.4) Active confirmed Problem Loco esophagus (036814258) Loco esophagus (K22.70) Active confirmed Problem 95396903 Other irritable bowel syndrome (K58.8) Active confirmed Vital Signs Temperature 98.7 degrees Fahrenheit 11/08/2024 Blood pressure diastolic 01 mm Hg 11/08/2024 Height 64.5 in 11/08/2024 Blood pressure systolic 001 mm Hg 11/08/2024 Weight 160.6 lbs 11/08/2024 BMI 27.14 kg/m2 11/08/2024 Encounters Encounter Location Date Provider Diagnosis [facility] [address] [place] [phone] 11/08/2024 Rojelio Lake Jr Change in bowel function R19.4 and Gas R14.3 [facility] [address] [place] [phone] 02/14/2024 Rojelio Lake Jr [facility] [address] [place] [phone] 11/26/2024 Rojelio Lake Jr Diverticulitis of large intestine without perforation or abscess without bleeding K57.32 [facility] [address] [place] [phone] 12/20/2024 Rojelio Lake Jr Assessments Encounter Date Diagnosis (ICD Code) Assessment Notes Treatment Notes Treatment Clinical Notes Section Notes 11/08/2024 Gas (ICD-10 - R14.3) We discussed the GI causes of change in bowel movements and abdominal gas. We discussed fiber supplementatio n. We recommended a trial of Imodium for her symptoms. She can follow a high-fiber diet and use OTC antacids containing simethicone which may help her abdominal gas symptoms. We discussed this today. 11/08/2024 Change in bowel function (ICD-10 - R19.4) We discussed the GI causes of change in bowel movements and abdominal gas. We discussed fiber supplementatio n. We recommended a trial of Imodium for her symptoms. She can follow a high-fiber diet and use OTC antacids containing simethicone which may help her abdominal gas symptoms. We discussed this today. 11/26/2024 Diverticulitis of large intestine without perforation or abscess without bleeding (ICD-10 - K57.32) Plan Of Treatment Pending Test Test Name Order Date BUN 11/26/2024 CREATININE 11/26/2024 LIVER PROFILE 10/20/2023 LIPASE 11/26/2024 LIPASE 10/20/2023 CBC w/o DIFF 11/26/2024 CBC w/o DIFF 10/20/2023 CT ABD & PELVIS WITH CONTRAST 11/26/2024 Liver Panel 11/26/2024 Future Test Test Name Order Date UPPER GI ENDOSCOPY 08/25/2018 COLONOSCOPY 08/25/2018 UPPER GI ENDOSCOPY 10/20/2023 COLONOSCOPY 10/20/2023 Next Appt Details Provider Name:Rojelio pena Jr, 02/13/2025 11:00:00 AM, [address] [facility], [address], [place], [address], Insurance Providers Payer Name Payer Address Payer Phone Subscriber Number Group Number Insured Name Patient Relationship to Insured Coverage Start Date Coverage End Date MEDICARE OF [place] [address] [place] [id number] SABINE MEADE Self - patient is the insured 3 MEDEX ATTN CLAIMS [address] [place] [address] [id number] SABINE MEADE Self - patient is the insured Medical (General) History Medical History History ICD Code breast cancer x2 anxiety/depression allergic rhinitis frequent urination Loco's esophagus/gastroesophageal ref lux disease Surgical History Surgery Date(Month/Year) non invasive back surgery-day surgery EGD/colon, no intestinal met aplasia, tubular adenoma x1, three-year EGD/colon followup. 11/13 Bladder suspension 1991 rotator cuff 1994 lumpectomy 1992 mastectomy 2004
[2025-01-22 08:24] LABS: Hematocrit 43.9 % (37.0-47.0); Hemoglobin 14.2 g/dl (12.0-16.0); Mean Corpuscular HGB Conc 32.3 g/dl (31.0-35.0); Mean Corpuscular Hemoglobin 31.7 pg (27.0-33.0); Mean Corpuscular Volume 98.0 fL (80.0-98.0); NRBC Abs Auto 0.000 X10*3/uL (0.0-0.012); NRBC Pct Auto 0.0 /100WBC (0.0-0.2); Platelet Count 268 X10*3/uL (160-400); Red Blood Count 4.48 X10*6/uL (4.20-5.50); White Blood Count 6.5 X10*3/uL (4.8-10.8)
[2025-01-22 08:51] LABS: Alanine Aminotransferase 53 U/L (0-31); Albumin Level 4.3 g/dL (3.5-5.0); Alkaline Phosphatase 83 U/L (39-117); Aspartate Amino Transferase 35 U/L (5-31); Blood Urea Nitrogen 15 mg/dL (9-16); Estimated Glomerular Filt Rate > 60; Lipase 29 U/L (8-78); Total Protein 6.9 g/dL (6.5-8.0)
[2025-01-22] MEDS: iohexoL 350 MG/ML 100 ML INFUS..BTL IV (15:53)
[2025-01-22] MEDS: Barium Sulfate Oral (Berry) 450 ML ORAL.SUSP 900 ML PO (15:53)
== END 2025-01-22 07:18 | disposition home or self-care (01) ==
LOC: HO.CT 07:17
PROVIDERS: PCP Physician Assistant; Visit Provider Internal Medicine Gastroenterology
DX: K57.32 Diverticulitis of large intestine without perforation or abscess without bleeding (principal)
CPT/HCPCS: 36415; 74177; 80076; 82565; 83690; 84520; 85027; Q9967

== ENCOUNTER → 2025-01-22 15:32 | Outpatient (BNV) | payer MEDICARE, SELFPAY | PROVIDERS: PCP Physician Assistant; Visit Provider Radiology Diagnostic Radiology | DX: K57.32 Diverticulitis of large intestine without perforation or abscess without bleeding (principal); N20.0 Calculus of kidney; K76.0 Fatty (change of) liver, not elsewhere classified; K42.9 Umbilical hernia without obstruction or gangrene; K40.90 Unilateral inguinal hernia, without obstruction or gangrene, not specified as recurrent | CPT/HCPCS: 74177 ==

== ENCOUNTER 2025-01-30 12:54 | Outpatient (REF) | payer MEDICARE, SELFPAY ==
--- OUTSIDE RECORDS SUMMARY | 2023-11-09 09:40 | XMS_ITS ---
Author Organization [facility] Address [address] [place] [phone] Care Team Providers Care Front Edger Name Role Phone THANIA SARGENT Primary Care Provider Rojelio Cooper Jr Unavailable [phone] REASON FOR VISIT periumbilical pain Problems Problem Type SNOMED Code ICD Code Onset Dates Problem Status W/U Status Risk Notes Problem Loco esophagus (787064820) Loco esophagus (K22.70) Active confirmed Encounters Encounter Location Date Provider Diagnosis [facility] [place] Outpatient [address] [place] [phone] 11/09/2023 Rojelio Lake Jr Colon cancer screening [...] * SABINE TOUSSAINT CDOB:1955 (69 yo F)Acc No.[id number]:11/09/2023 EGD and COL/MAC Patient: Lexie SABINE LOCKE Provider: Rocio Lake MD :1955 A ge:68 Y S ex:Female Date:11/09/2023 Address:[address] [place], [place] [phone] Pcp:THANIA SARGENT Subjective: * Chief Complaints: * 1 . Periumbilical pain. * Medical History: Objective: * Vitals: Assessment: * Assessment: 1. C olon cancer screening - Z12.11 (Primary) 2 . C olon polyps - K63.5? 3. B arrett esophagus - K22.70 4 . A bdominal pain, periumbilical - R10.33 Plan: * Treatment: * Procedure Codes: 4 5385 LESION REMOVAL COLONOSCOPY, 04888 UPPER GI ENDOSCOPY, BIOPSY * * The named appointment provid er may or may not be the originator of this progress note, and it is not deemed complete until electronically signed by the appointment provider. Sign off status: Pending * Provider: Rocio Lake MD Date: 0 11/09/2023 Generated for Bebe neville/Anushka/Baitting on: 0 01/30/2025 03:55 PM EDT
--- OUTSIDE RECORDS SUMMARY | 2024-02-16 09:55 | XMS_ITS ---
Author Organization [facility] Address [address] [place] [phone] Care Team Providers Care Industrial Trainer Name Role Phone THANIA SARGENT Primary Care Provider Rojelio Cooper Jr Unavailable [phone] REASON FOR VISIT Patient presents today for barretts esophagus Encounters Encounter Location Date Provider Diagnosis [facility] [address] [facility] [address] [place] [phone] 02/16/2024 Rojelio Lake Jr Plan Of Treatment No Information Progress Notes * SABINE TOUSSAINT CDOB:1955 (69 yo F)Acc No.[id number]:02/16/2024 Progress Notes Patient: SABINE KELLER Provider: Rocio Lake MD :1955 A ge:68 Y S ex:Female Date:02/16/2024 Address:[address] [place], [place] [phone] Pcp:THANIA SARGENT Subjective: * Chief Complaints: * [...] Date: 02/16/2024 Generated for Printi ng/Faxing/eTransmitting on: 01/30/2025 03:54 PM EDT
--- OUTSIDE RECORDS SUMMARY | 2025-01-04 05:40 | XMS_ITS ---
Author Organization [facility] Address [address] [place] [phone] Care Team Providers Care Digital Retoucher Name Role Phone THANIA SARGENT Primary Care Provider Rojelio Cooper Jr Unavailable [phone] REASON FOR VISIT Patient presents today for diverticulitis Encounters Encounter Location Date Provider Diagnosis [facility] [address] [facility] [address] [place] [address] 01/04/2025 Rojelio Lake Jr Plan Of Treatment No Information Progress Notes * SABINE TOUSSAINT CDOB:1955 (69 yo F)Acc No.[id number]:01/04/2025 Progress Notes Patient: SABINE KELLER Provider: Rocio Lake MD :1955 A ge:69 Y S ex:Female Date:01/04/2025 Address:[address] [place], [place] [id number] Pcp:THANIA SARGENT Subjective: * Chief Complaints: * [...] 01/04/2025 Generated for Printi ng/Faxing/eTransmitting on: 0 01/30/2025 03:54 PM EDT
--- NOTE | ~2025-01-30 | CT_ITS ---
CLINICAL HISTORY: F17.210 - Nicotine dependence, cigarettes, uncomplicated CT lung cancer screening (LDCT) Comparison: CT/[place] - CT LUNG SCREENING FOLLOW UP WITHOUT IV CONTRAST - 12/09/23 13:30 EDT Technique: Axial CT images of the chest using low-dose technique. Referring provider counseled the patient on shared decision-making for LDCT screening. Additional counseling was provided on smoking cessation. Effective radiation dose total: DLP 46 mGycm, CTDIvol 1.3 mGy. Findings: Pulmonary nodules: Stable 7 mm medial right apical nodule, axial 26. Few additional stable 2 mm nodules. No new, increasing or suspicious nodule. Incidental pulmonary findings: [id number] centrilobular emphysema. A few blebs are present at the lung apices. Mild airway thickening. Non pulmonary findings: Coronary artery calcifications: Moderate Limited upper abdomen: Unremarkable Other: None IMPRESSION: LungRADS 2 - Benign Appearance: Continue annual screening with low dose Chest CT in 12 months. ##L2## This document has been electronically signed by: Conner Burgess MD on 01/31/2025 10:37:07
--- OUTSIDE RECORDS SUMMARY | 2025-01-30 15:55 | XMS_ITS | Patient Health Record ---
Author Organization [facility] Address [address] [place] [address] Care Team Providers Care Business Analyst Consultant Name Role Phone BRANDIE LOGAN Primary Care Provider Rojelio Cooper Jr Unavailable [phone] Allergies Allergen (clinical drug ingredient) Drug/Non Drug Allergy documented on EMR Reaction Allergy Type Onset Date Status seasonal (uncoded) Unknown Allergy A ctive Results Component Value Reference Range Notes Complete Blood Count no Diff Reviewed date:01/24/2025 07:56:21 AM Interpretation: Performing Lab:[address] [address] Notes/Report: White Blood Count 6.5 4.8-10.8 X10*3/uL Red Blood Count 4.48 4.20-5.50 X10*6/uL Hemoglobin 14.2 12.0-16.0 g/dl Hematocrit 43.9 37.0-47.0 % Mean Corpuscular Volume 98.0 80.0-98.0 fL Mean Corpuscular Hemoglobin 31.7 27.0-33.0 pg Mean Corpuscular HGB Conc 32.3 31.0-35.0 g/dl Red Cell Distribution Width 13.3 11.0-16.0 % Platelet Count 268 160-400 X10*3/uL Mean Platelet Volume 9.9 9.4-12.3 fL NRBC Pct Auto 0.0 0.0-0.2 /100WBC NRBC Abs Auto 0.000 0.0-0.012 X10*3/uL Liver Panel Reviewed date:01/23/2025 07:44:17 AM Interpretation: Performing Lab:[place] [address] [address] Notes/Report: Bilirubin Total 0.3 0.0-1.0 mg/dL Bilirubin Direct 0.1 0.0-0.5 mg/dL Aspartate Amino Transferase 35 5-31 U/L Alanine Aminotransferase 53 0-31 U/L Total Protein 6.9 6.5-8.0 g/dL Albumin Level 4.3 3.5-5.0 g/dL Alkaline Phosphatase 83 39-117 U/L Blood Urea Nitrogen Reviewed date:01/24/2025 07:56:16 AM Interpretation: Performing Lab:[address] [address] Notes/Report: Blood Urea Nitrogen 15 9-16 mg/dL Creatinine Reviewed date:01/24/2025 07:56:12 AM Interpretation: Performing Lab:[address] [address] Notes/Report: Creatinine 0.74 0.5-1.4 mg/dL Estimated Glomerular Filt Rate > 60 Chronic Kidney Disease: Estimated GFR < 60 mL/min/1.73m2 Severe Kidney Disease: Estimated GFR < 15 mL/min/1.73m2 Lipase Reviewed date:01/24/2025 07:56:08 AM Interpretation: Performing Lab:[address] [address] Notes/Report: Lipase 29 8-78 U/L CT abdomen pelvis w con Reviewed date:01/24/2025 07:55:58 AM Interpretation: Performing Lab: Notes/Report: [address] [address] [address] Scan Report Signed Patient: Sabine Marvin MR#: [id number] : 1955 Acct:[id number] Age/Sex: 69 / F ADM Date: 01/22/25 Loc: HO.CT Attending Dr: Rojelio Lake MD Ordering Physician: Rojelio Lake MD Date of Service: 01/22/25 Procedure(s): CT abdomen pelvis w IV con Accession Number(s): [id number] cc: Rojelio Lake MD; Brandie Logan Report Number: [id number]: Total DLP = 526.00 mGy-cm Reason for Exam: Diverticulitis of large intestine without perforation or abscess without b EXAMINATION: CT ABDOMEN AND PELVIS WITH CONTRAST CLINICAL INFORMATION: Diverticulitis of large intestine without perforation or abscess COMPARISON: November 29, 2024 TECHNIQUE: Multidetector volumetric images were obtained from the superior aspect of the liver through the pubic symphysis following administration 85 mL of Omnipaque 350 intravenous contrast. Sagittal and coronal reformatted images were obtained on the technologist's workstation. Oral contrast: Present This CT examination was performed using dose optimization techniques as appropriate, variously including the following: *Automated exposure control *Adjustment of mA and/or kV according to patient size (this includes techniques or standardized protocols for targeted exams where dose is matched to indication/reason for exam; i.e. extremities or head) *Use of iterative reconstruction technique DLP: 526 mGY*cm FINDINGS: LUNG BASES: The visualized lung bases are unremarkable. LIVER, GALLBLADDER, AND BILIARY TREE: There is decreased attenuation diffusely through the liver. The gallbladder is unremarkable with no evidence of radiopaque gallstones, gallbladder wall thickening, or obvious pericholecystic inflammatory changes. PANCREAS: Multifocal punctate calcifications are evident in the pancreas consistent with changes related to chronic pancreatitis. SPLEEN: Unremarkable. ADRENAL GLANDS: Unremarkable. KIDNEYS AND URETERS: 2 small nonobstructing stones are again noted in the lower pole left kidney. There are small low attenuating lesions in both kidneys, likely stable renal cysts. BLADDER: Bladder is partially empty but grossly normal. GASTROINTESTINAL TRACT: Diverticulosis is present throughout the colon, and most pronounced in the descending and sigmoid colon. There is mild residual wall thickening in the sigmoid colon near junction with descending colon with resolved fat stranding in the adjacent mesentery. ABDOMINAL WALL: Supra-umbilical hernia with hernia sac measuring 2.7 cm superior-inferior is again identified. Small direct inguinal hernia on the left containing adipose tissue is unchanged. LYMPH NODES: Again noted are shotty periaortic lymph nodes in the abdomen. VASCULAR: Moderate vascular calcifications are present. PELVIC VISCERA: The uterus is surgically absent. Ovaries are unremarkable. OSSEOUS STRUCTURES: Mild to moderate degenerative changes are present in the lower lumbar spine. There is vacuum phenomenon and small marginal osteophytes involving bilateral SI joints. CT/CT abdomen pelvis w IV con IMPRESSION: Continued improvement in changes of diverticulitis involving sigmoid colon, near junction with descending colon. Fat stranding has resolved. There is persistent bowel wall thickening. Stable supra-umbilical and left inguinal hernias Stable small nonobstructing stones (2) in the lower left kidney. Changes from chronic pancreatitis. Hepatic steatosis Fleischner guidelines were followed. Electronically signed by: Florin Ruano MD 01/22/2025 04:39 PM EDT RP Dictated By: Florin Ruano MD Signed By: <Electronically signed by Florin Ruano MD in OV> 01/22/25 1639 DD/ 1545 TD/TT: 01/22/25 1555 Head Turning Machine Operator: Reason For Referral No Information Medications Medication [...] Problem Status W/U Status Risk Notes Problem 950777344 Colon cancer screening (Z12.11) Active confirmed Problem 8358097 Diverticulitis o f large intestine without perforation or abscess without bleeding (K57.32) Active confirmed Problem 849988712 Periumbilical abdominal pain (R10.33) Active confirmed Problem 452388944 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) Active confirmed Problem Gas (74536644) Gas (R14.3) Active confirmed Problem Altered bowel function (98557461) Change in bowel function (R19.4) Active confirmed Problem Loco esophagus (955649969) Loco esophagus (K22.70) Active confirmed Problem 42827942 Other irritable bowel syndrome (K58.8) Active confirmed Vital Signs Temperature 98.7 degrees Fahrenheit 11/08/2024 Blood pressure diastolic 01 mm Hg 11/08/2024 Height 64.5 in 11/08/2024 Blood pressure systolic 001 mm Hg 11/08/2024 Weight 160.6 lbs 11/08/2024 BMI 27.14 kg/m2 11/08/2024 Encounters Encounter Location Date Provider Diagnosis [facility] [address] [place] [phone] 11/08/2024 Rojelio Lake Jr Change in bowel function R19.4 and Gas R14.3 [facility] [address] [place] [phone] 02/14/2024 Rojelio Lake Jr [facility] [address] [place] [address] 11/26/2024 Rojelio Lake Jr Diverticulitis of large intestine without perforation or abscess without bleeding K57.32 [facility] [address] [place] [phone] 12/20/2024 Rojelio Lake Jr [facility] [address] [place] [phone] 01/24/2025 [facility] [address] [place] [address] 01/25/2025 Rojelio Lake Jr Assessments Encounter Date Diagnosis [...] Start Date Coverage End Date MEDICARE OF [place] [address] [place] [id number] [phone] [id number] SABINE MEADE Self - patient is the insured 3 MEDEX ATTN CLAIMS [address] [place] [address] [id number] SABINE MEADE Self - patient is the [...]
== END 2025-01-30 12:55 | disposition home or self-care (01) ==
LOC: HO.CT 12:54
PROVIDERS: PCP Physician Assistant; Visit Provider Physician Assistant Medical
DX: Z12.2 Encounter for screening for malignant neoplasm of respiratory organs (principal); F17.210 Nicotine dependence, cigarettes, uncomplicated
CPT/HCPCS: 71271

== ENCOUNTER → 2025-01-30 12:56 | Outpatient (BNV) | payer MEDICARE, SELFPAY | PROVIDERS: PCP Physician Assistant; Visit Provider Radiology Vascular & Interventional Radiology | DX: F17.210 Nicotine dependence, cigarettes, uncomplicated (principal) | CPT/HCPCS: 71271 ==

== ENCOUNTER 2025-02-01 10:28 | Outpatient (AMB) | payer MEDICARE, SELFPAY ==
--- OUTSIDE RECORDS SUMMARY | 2023-11-09 09:40 | XMS_ITS ---
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 Periumbilical pain. * Medical History: Objective: * Vitals: Assessment: * Assessment: 1. C olon cancer screening - Z12.11 (Primary) 2 . C olon polyps - K63.5? 3. B arrett esophagus - K22.70 4 . A bdominal pain, periumbilical - R10.33 Plan: * Treatment: * Procedure Codes: 4 5385 LESION REMOVAL COLONOSCOPY, 38216 UPPER GI ENDOSCOPY, BIOPSY * * The named appointment provid er may or may not be the originator of this progress note, and it is not deemed complete until electronically signed by the appointment provider. Sign off status: Pending * Provider: Rocio Lake MD Date: 0 11/09/2023 Generated for Bebe neville/Anushka/Baitting on: 0 02/01/2025 12:05 PM EDT
--- OUTSIDE RECORDS SUMMARY | 2024-02-16 09:55 | XMS_ITS ---
Author Organization [facility] Address [address] [place] [phone] Care Team Providers Care Scaling Machine Operator Name Role Phone THANIA SARGENT Primary Care Provider Rojelio Cooper Jr Unavailable REASON FOR VISIT Patient presents today for barretts esophagus Encounters Encounter Location Date Provider Diagnosis [facility] [address] [facility] [address] [place] [phone] 02/16/2024 Rojelio Lake Jr Plan Of Treatment No Information Progress Notes * SABINE TOUSSAINT CDOB:1955 (69 yo F)Acc No.[id number]:02/16/2024 Progress Notes Patient: SABINE KELLER Provider: Rocio Lake MD :1955 A ge:68 Y S ex:Female Date:02/16/2024 Address:[address] [place], [place] [phone] Pcp:THANIA SARGENT Subjective: * Chief Complaints: * [...] Pending * Provider: Rocio Lake MD Date: 02/16/2024 Generated for Printi ng/Faxing/eTransmitting on: 02/01/2025 12:04 PM EDT
--- OUTSIDE RECORDS SUMMARY | 2025-01-04 05:40 | XMS_ITS ---
Author Organization [facility] Address [address] [place] [phone] Care Team Providers Care Living Manager Name Role Phone THANIA SARGENT Primary Care Provider Rojelio Cooper Jr Unavailable REASON FOR VISIT Patient presents today for diverticulitis Encounters Encounter Location Date Provider Diagnosis [facility] [address] [facility] [address] [place] [phone] 01/04/2025 Rojelio Lake Jr Plan Of Treatment No Information Progress Notes * SABINE TOUSSAINT CDOB:1955 (69 yo F)Acc No.[id number]:01/04/2025 Progress Notes Patient: SABINE KELLER Provider: Rocio Lake MD :1955 A ge:69 Y S ex:Female Date:01/04/2025 Address:[address] [place], [place] [phone] Pcp:THANIA SARGENT Subjective: * Chief Complaints: * 1 . Patient presents today for diverticulitis. * Medical History: Objective: * Vitals: Assessment: Plan: * Treatment: * * The named appointment provid er may or may not be the originator of this progress note, and it is not deemed complete until electronically signed by the appointment provider. Sign off status: Pending * Provider: Rocio Lake MD Date: 0 01/04/2025 Generated for Printi ng/Faxing/eTransmitting on: 0 02/01/2025 12:04 PM EDT
--- NOTE | 2025-02-01 11:28 | A.OFFVIS_ITS ---
Intake Visit Reasons: UroD Allergies amoxicillin (AMOXICILLIN) Allergy (Severe, Verified 12/07/24 14:57) HIVES Sulfa (Sulfonamide Antibiotics) (SULFA (SULFONAMIDE ANTIBIOTICS)) Allergy (Severe, Verified 12/07/24 14:57) HIVES,SWELLING morphine Adverse Reaction (Verified 12/07/24 14:57) Hallucinations ENVIROMENTAL Allergy (Mild, Uncoded 10/10/24 11:22) NASAL CONGESTION Medication List - Last Reconciled 02/01/25 by Charito Renner MD alprazolam 0.25 mg PO ONCE PRN calcium carb, citrate, malate mg PO cetirizine 10 mg PO DAILY PRN cholecalciferol (vitamin D3) 20 mcg PO DAILY fesoterodine ER (Toviaz) 4 mg PO DAILY 30 days fluoxetine 20 mg PO DAILY metronidazole 500 mg PO BID 5 days montelukast 10 mg PO BEDTIME HPI Comments Details: 02/01/25-Rachel is here for urodynamics. The patient has complaints of urinary incontinence, urgency. h/o MARY, and Jane procedure Interpretation: During the filling phase there was mormal sensation, The patient stated that she thought she leaked during stress test, however leakage was not observed during cough or valsalva stress. Findings consistent with detrusor overactivity. EMG- Appropriate changes in the waveforms were noted through out the study. Discussed OAB care pathway, including fluid management, dietary modifications, including caffeine intake. Bladder control strategies, including pelvic floor exercises. Discessed that urinary leakage can be related to pelvic floor muscles weakness and/or bladder spasms. Treatment options discussed for OAB included anticholinergics/antimuscarinics, neuromodulation, bladder botox injection. Will trial PO anticholinergic, Toviaz 4 mg daily. Reassess pelvic floor weakness if symptoms persist. 11/05/24-- The patient is a 69-year-old female presenting with bladder control issues. - She underwent surgery several years ago for bladder control, which was initially effective but is no longer providing relief. - Symptoms include urinary frequency, incontinence, and a strong urge to urinate, necessitating the use of padding at times. - The patient consumes coffee, water, and alcohol, which may exacerbate her urinary symptoms. - Past medical history includes kidney stones, diverticulitis, umbilical hernia, and breast cancer, currently in remission. Urinary Symptoms Review - Urinary frequency and incontinence with a strong urge to urinate. - Sometimes unable to urinate despite a strong urge. - Lifestyle factors include caffeine and alcohol consumption, which may exacerbate symptoms. Results - Bladder scan post-void residual: 65 mL Plan - Conduct urodynamic testing to assess bladder function and muscle strength. - Implement lifestyle changes by reducing caffeine and alcohol consumption to alleviate urinary symptoms. - Complete a urinalysis as an outpatient to exclude urinary tract infection. [facility] Medical History Colonic diverticular abscess Umbilical hernia History of left breast cancer (~1992) Nicotine dependence, cigarettes, uncomplicated Chronic bronchitis Chronic cough Chronic allergic rhinitis Osteopenia (~2016) GERD (gastroesophageal reflux disease) Hepatic steatosis Diverticulitis Loco's esophagus Basal cell carcinoma Depression Surgical History History of esophagogastroduodenoscopy (EGD) History of colonoscopy (~11/09/23) History of wisdom tooth extraction History of rotator cuff surgery History of left mastectomy (~2003) History of bilateral breast implants History of back surgery History of bladder surgery History of hysterectomy (~1997) History of lumpectomy of left breast (~1992) Family History Paternal Grandmother Breast cancer Social History Household Members: Children Housing: House Do you presently have visiting nurse or other home services: No Alcohol intake: current Alcohol intake frequency: 0-2 drinks per day Patient Tobacco Use Status: Former Tobacco user Tobacco use type: Cigarette Cigarette Packs Per Day: 0.75 Cigarettes Per Day: 15 Years Smoked: 40 e-Cigarette/Vaping Use: Never Used Second Hand Smoke Exposure: No service: No Current occupational status: employed Sexual orientation: Straight/Heterosexual Gender identity: Female Cognitive needs: No Hearing needs: No Vision needs: Yes (reading glasses) Female Reproductive History Menstrual Age of Menarche: 14 Review of Systems Const All systems reviewed & are unremarkable except as noted in HPI and below Reports no additional complaints Eyes Reports no additional complaints ENT Reports no additional complaints Card Reports no additional complaints Resp Reports no additional complaints GI Reports no additional complaints Reports as per HPI Musc Reports no additional complaints Skin/Breast Reports system reviewed and no additional complaints, except as documented Neuro Reports no additional complaints Psych Reports no additional complaints Endo Reports no additional complaints Dioni/Lymph Reports no additional complaints Aller/Immun Reports no additional complaints Office Procedures Urodynamic Studies Consent Discussed risk and benefit or proposed procedure with the patient. Information consent for procedure given to the patient. Discussed technical aspects, risks, benefits and alternatives in full. Addressed all of the patient's questions and concerns regarding the procedure. The patient demonstrated knowledge and understanding. They wish to proceed with this procedure. Preparation The patient was prepped in the usual manner. A coremaker helper was present and in the room. Genitalia was prepped with betadine solution in a sterile manner. Procedure Complex Uroflow Unable to perform, patient unable to void. PVR: 100ml Cystometrogram ? Vaginal/rectal catheter type: Vaginal First sensation at (mL): 89 mL First desire at (mL): 150 mL Strong desire to void occurred at (mL): 200 mL Strong desire detrusor pressure (cm H2O): 5.9 Maximum Capacity (mL): 302 mL Voiding Summary Voided with max detrusor pressure of (cm H2O): 123 Maximum flow rate (mL/second): Unable to obtain Voided volume (mL): ? 21ml Patient voided an addition 250ml in bathroom once catheters removed. Calculated PVR: Approx 31 mL Stress Testing Stress Test at 218mL: Absent leak with Valsalva, Absent leak with cough (Patient reported sensory perception that she leaked with cough, but no leak visualized) DO Dry: 191ml DO Wet: Absent Prep: The patient was prepped in the usual manner. A coremaker helper was present and in the room. Genitalia was prepped with betadine solution in a sterile manner. 86191-Thjjugcpxgdvby w/ TIN RECOVERY WORKER 93317-Bnuqqwr-Dqfqanjocusa 53270-Nmgk/Urinary Muscle Study 40450-Sxois-Ahivmmqly Pressure Test Procedure code (CPT) selection complete Office Meds nitrofurantoin monohydrate/macrocrystals 100 mg capsule Performing Provider: Charito Renner MD [facility] Administered by: Jodie Sharp RN on 02/01/25 11:28 Dose Route Admin Location Dispensed Lot Number Expiration Date NDC Engineering Project Manager 100 mg PO 1 cap Results AMB Urinalysis, Automated UA Leukoctes 0 Maryann/uL Last Edit by Jodie Sharp RN on 02/01/25 11:35 UA Nitrite Negative Last Edit by Jodie Sharp RN on 02/01/25 11:35 UA Urobilinogen 3.5 mg/dL Last Edit by Jodie Sharp RN on 02/01/25 11: 35 UA Protein 0 mg/dL Last Edit by Jodie Sharp RN on 02/01/25 11:35 UA pH 6.0 Last Edit by Jodie Sharp RN on 02/01/25 11:35 UA Blood 10 Alexey/uL Last Edit by Jodie Sharp RN on 02/01/25 11:35 UA Specific [place] 1.0 Last Edit by Jodie Sharp RN on 02/01/25 11:3 5 UA Ketone Negative Last Edit by Jodie Sharp RN on 02/01/25 11:35 UA Bilirubin 0 mg/dL Last Edit by Jodie Sharp RN on 02/01/25 11:35 UA Glucose 0 mg/dL Last Edit by Jodie Sharp RN on 02/01/25 11:35 Results Reviewed Results Reviewed: Laboratory Last Values Urine pH (Auto) 6.0 02/01/25 11:33 Specific [place] (Auto) 1.0 02/01/25 11:33 Urine Protein (Auto) 0 mg/dL 02/01/25 11:33 Glucose (UA)(Auto) 0 mg/dL 02/01/25 11:33 Urine Ketones (Auto) Negative 02/01/25 11:33 Urine Blood (Auto) 10 Alexey/uL 02/01/25 11:33 Urine Nitrite (Auto) Negative 02/01/25 11:33 Urine Bilirubin (Auto) 0 mg/dL 02/01/25 11:33 Urine Urobilinogen (Auto) 3.5 mg/dL 02/01/25 11:33 Leukocyte Esterase (Auto) 0 Maryann/uL 02/01/25 11:33 Assessment & Plan Assessment & Plan (1) Urinary incontinence: Code(s): R32 - Unspecified urinary incontinence Category: Medical (2) Urinary urgency: Code(s): R39.15 - Urgency of urination Category: Medical (3) Detrusor overactivity: Code(s): N32.81 - Overactive bladder Category: Medical Plan fesoterodine ER (Toviaz) 4 mg PO DAILY 30 tabs 3RF 30 days N32.81 - Overactive bladder Orders: Orders AMB Urodynamics Studies Today R32 - Unspecified urinary incontinence AMB Urinalysis Automated Today Z13.9 - Encounter for screening, unspecified Medications: New fesoterodine ER (Toviaz) 4 mg PO DAILY 30 tabs 3RF 30 days N32.81 - Overactive bladder Discontinued ciprofloxacin HCl Discontinued Reason: Patient Completed Course 500 mg PO BID 5 days 10 tabs 0RF Scribe Plan - Not visible on output: Patient was informed and verbally consented to the use of an ambient scribe for clinic note documentation during this visit. Coding Level of Care Code Est Pt Level 4 (07630) Diagnoses Urinary incontinence R32 Urinary urgency R39.15 Detrusor overactivity N32.81 CPT Codes Urodynamic Studies - CPT: 97960-Shrvvpkdolmjox w/ TIN RECOVERY WORKER ([id number]) Urodynamic Studies - CPT: 79926-Eheveej-Rhukccnypypf ([id number]) Urodynamic Studies - CPT: 99387-Nghe/Urinary Muscle Study ([id number]) Urodynamic Studies - CPT: 96670-Awggj-Nthtzetai Pressure Test ([id number])
--- OUTSIDE RECORDS SUMMARY | 2025-02-01 12:05 | XMS_ITS | Patient Health Record ---
Author Organization [facility] Address [address] [place] [address] Care Team Providers Care Grill Attendant Name Role Phone BRANDIE LOGAN Primary Care Provider Rojelio Cooper Jr Unavailable Allergies Allergen (clinical drug ingredient) Drug/Non Drug Allergy documented on EMR Reaction Allergy Type Onset Date Status seasonal (uncoded) Unknown Allergy A ctive Results Component Value Reference Range Notes Complete Blood Count no Diff Reviewed date:01/24/2025 07:56:21 AM Interpretation: Performing Lab:[address] [address] Notes/Report: White Blood Count 6.5 4.8-10.8 X10*3/uL [...] Reviewed date:01/23/2025 07:44:17 AM Interpretation: Performing Lab:[place] [address] [address] Notes/Report: Bilirubin Total 0.3 0.0-1.0 mg/dL Bilirubin Direct 0.1 0.0-0.5 mg/dL Aspartate Amino Transferase 35 5-31 U/L Alanine Aminotransferase 53 0-31 U/L Total Protein 6.9 6.5-8.0 g/dL Albumin Level 4.3 3.5-5.0 g/dL Alkaline Phosphatase 83 39-117 U/L Blood Urea Nitrogen Reviewed date:01/24/2025 07:56:16 AM Interpretation: Performing Lab:[address] [address] Notes/Report: Blood Urea Nitrogen 15 9-16 mg/dL Creatinine Reviewed date:01/24/2025 07:56:12 AM Interpretation: Performing Lab:[address] [address] Notes/Report: Creatinine 0.74 0.5-1.4 mg/dL Estimated Glomerular Filt Rate > 60 Chronic Kidney Disease: Estimated GFR < 60 mL/min/1.73m2 Severe Kidney Disease: Estimated GFR < 15 mL/min/1.73m2 Lipase Reviewed date:01/24/2025 07:56:08 AM Interpretation: Performing Lab:[address] [address] Notes/Report: Lipase 29 8-78 U/L CT abdomen pelvis w con Reviewed date:01/24/2025 07:55:58 AM Interpretation: Performing Lab: Notes/Report: [address] [address] [address] Scan Report Signed Patient: Sabine Marvin MR#: [id number] 315 : 1955 Acct:[id number] Age/Sex: 69 / F ADM Date: 01/22/25 Loc: HO.CT Attending Dr: Rojelio Lake MD Ordering Physician: Rojelio Lake MD Date of Service: 01/22/25 Procedure(s): CT abdomen pelvis w IV con Accession Number(s): [id number] cc: Rojelio Lake MD; Brandie Logan Report Number: [id number]: Total DLP = 526.00 mGy-cm Reason for [...] 01/22/25 1639 DD/ 1545 TD/TT: 01/22/[address] Technologist: Reason For Referral No Information Medications Medication [...] Problem Status W/U Status Risk Notes Problem 457742540 Colon cancer screening (Z12.11) Active confirmed Problem 8017030 Diverticulitis o f large intestine without perforation or abscess without bleeding (K57.32) Active confirmed Problem 922816259 Periumbilical abdominal pain (R10.33) Active confirmed Problem 689238977 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) Active confirmed Problem Gas (40488653) Gas (R14.3) Active confirmed Problem Altered bowel function (62325986) Change in bowel function (R19.4) Active confirmed Problem Loco esophagus (938250982) Loco esophagus (K22.70) Active confirmed Problem 78104776 Other irritable bowel syndrome (K58.8) Active confirmed Vital Signs Temperature 98.7 degrees Fahrenheit 11/08/2024 Blood pressure diastolic 01 mm Hg 11/08/2024 Height 64.5 in 11/08/2024 Blood pressure systolic 001 mm Hg 11/08/2024 Weight 160.6 lbs 11/08/2024 BMI 27.14 kg/m2 11/08/2024 Encounters Encounter Location Date Provider Diagnosis [facility] [address] [place] [phone] 11/08/2024 Rojelio Lake Jr Change in bowel function R19.4 and Gas R14.3 [facility] [address] [place] [phone] 02/14/2024 Rojelio Lake Jr [facility] [address] [place] [phone] 11/26/2024 Rojelio Lake Jr Diverticulitis of large intestine without perforation or abscess without bleeding K57.32 [facility] [address] [place] [phone] 12/20/2024 Rojelio Lake Jr [facility] [address] [place] [phone] 01/24/2025 [facility] [address] [place] [address] 01/25/2025 Rojelio Lake Jr Assessments Encounter Date [...] Start Date Coverage End Date [place] [address] [place] [id number] SABINE MEADE Self - patient is the insured 3 MED[employer] ATTN CLAIMS [address] [place] [address] [phone] [id number] SABINE MEADE Self - patient is the [...]
== END 2025-02-01 12:05 | disposition home or self-care (01) ==
LOC: HO.HUSH 10:28
PROVIDERS: PCP Internal Medicine; Visit Provider Urology
DX: R32 Unspecified urinary incontinence (principal); R39.15 Urgency of urination; N32.81 Overactive bladder; Z13.9 Encounter for screening, unspecified
CPT/HCPCS: 51728; 51741; 51784; 51797; 99214

== ENCOUNTER → 2025-02-01 10:28 | Outpatient (BNVA) | payer MEDICARE, SELFPAY | PROVIDERS: PCP Internal Medicine; Visit Provider Urology | DX: N32.81 Overactive bladder (principal); R32 Unspecified urinary incontinence; R39.15 Urgency of urination; Z13.9 Encounter for screening, unspecified; Z79.899 Other long term (current) drug therapy | CPT/HCPCS: 51728; 51741; 51784; 51797; 81003; 99212 ==

== ENCOUNTER 2025-03-20 10:37 | Outpatient (AMB) | payer MEDICARE, SELFPAY ==
--- OUTSIDE RECORDS SUMMARY | 2023-11-09 09:40 | XMS_ITS ---
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 Periumbilical pain. * Medical History: Objective: * Vitals: Assessment: * Assessment: 1. C olon cancer screening - Z12.11 (Primary) 2 . C olon polyps - K63.5? 3. B arrett esophagus - K22.70 4 . A bdominal pain, periumbilical - R10.33 Plan: * Treatment: * Procedure Codes: 4 5385 LESION REMOVAL COLONOSCOPY, 10553 UPPER GI ENDOSCOPY, BIOPSY * * The named appointment provid er may or may not be the originator of this progress note, and it is not deemed complete until electronically signed by the appointment provider. Sign off status: Pending * Provider: Rocio Lake MD Date: 0 11/09/2023 Generated for Bebe neville/Anushka/Baitting on: 1 01:12 PM EDT
--- OUTSIDE RECORDS SUMMARY | 2024-02-16 09:55 | XMS_ITS ---
Author Organization [facility] Address [address] [place] [phone] Care Team Providers Care Laborer Petroleum Refinery Name Role Phone THANIA SARGENT Primary Care Provider Rojelio Cooper Jr Unavailable REASON FOR VISIT Patient presents today for barretts esophagus Encounters Encounter Location Date Provider Diagnosis [facility] [address] [facility] [address] [place] [phone] 02/16/2024 Rojelio Lake Jr Plan Of Treatment No Information Progress Notes * SABINE TOUSSAINT CDOB:1955 (69 yo F)Acc No.[id number]:02/16/2024 Progress Notes Patient: SABINE KELLER Provider: Rocio Lake MD :1955 A ge:68 Y S ex:Female Date:02/16/2024 Address:[address] [place], [place] [phone] Pcp:THANIA SARGENT Subjective: * Chief Complaints: * [...] Lake MD Date: 0 02/16/2024 Generated for Printi ng/Faxing/eTransmitting on: 01:11 PM EDT
--- OUTSIDE RECORDS SUMMARY | 2025-01-04 05:40 | XMS_ITS ---
Author Organization [facility] Address [address] [place] [address] Care Team Providers Care Cabin Agent Name Role Phone THANIA SARGENT Primary Care Provider Rojelio Cooper Jr Unavailable [phone] REASON FOR VISIT Patient presents today for diverticulitis Encounters Encounter Location Date Provider Diagnosis [facility] [address] [facility] [address] [place] [phone] 01/04/2025 Rojelio Lake Jr Plan Of Treatment No Information Progress Notes * SABINE TOUSSAINT CDOB:1955 (69 yo F)Acc No.[id number]:01/04/2025 Progress Notes Patient: SABINE KELLER Provider: Rocio Lake MD :1955 A ge:69 Y S ex:Female Date:01/04/2025 Address:[address] [place], [place] [id number] Pcp:THANIA SARGENT Subjective: * Chief Complaints: * [...] 0 01/04/2025 Generated for Printi ng/Faxing/eTransmitting on: 1 01:11 PM EDT
--- OUTSIDE RECORDS SUMMARY | 2025-02-13 07:00 | XMS_ITS ---
Author Organization [facility] Address [address] [place] [phone] Care Team Providers Care Forensic Nurse Name Role Phone THANIA SARGENT Primary Care Provider Rojelio Cooper Jr Unavailable REASON FOR VISIT diverticulitis Encounters Encounter Location Date Provider Diagnosis [facility] [address] [facility] [address] [place] [phone] 02/13/2025 Rojelio Lake Jr Plan Of Treatment No Information Progress Notes * SABINE TOUSSAINT CDOB:1955 (69 yo F)Acc No.[id number]:02/13/2025 Progress Notes Patient: SABINE KELLER Provider: Rocio Lake MD :1955 A ge:69 Y S ex:Female Date:02/13/2025 Address:[address] [place], [place] [id number] Pcp:THANIA SARGENT Subjective: * Chief Complaints: * 1 . Diverticulitis. * Medical History: Objective: * Vitals: Assessment: Plan: * Treatment: * * The named appointment provid er may or may not be the originator of this progress note, and it is not deemed complete until electronically signed by the appointment provider. Sign off status: Pending * Provider: Rocio Lake MD Date: 0 02/13/2025 Generated for Printi ng/Faxing/eTransmitting on: 01:12 PM EDT
[2025-03-20 10:44] VITALS: BP 144/86; BMI 28.2
--- NOTE | 2025-03-20 10:44 | MHC.OFFVIS ---
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 Pulp Grinder And Blender concerns: she feels her left implant is smaller over the last year. See's Urology for occasional incontinence. Currently not sexually active in years. Denies any vaginal dryness or irritation. STI testing offered; she accepts. Attempting to eat a healthy diet with calcium and vitamin D and stays active with exercise. Weight gain since tobacco cessation over the last year. Last pap smear; 2023, negative. Last mammogram; 2023. Colonoscopy is UTD. [facility] Medical History Colonic diverticular abscess Umbilical hernia History of left breast cancer (~1992) Nicotine dependence, cigarettes, uncomplicated Chronic bronchitis Chronic cough Chronic allergic rhinitis Osteopenia (~2016) GERD (gastroesophageal reflux disease) Hepatic steatosis Diverticulitis Loco's esophagus Basal cell carcinoma Depression Surgical History History of esophagogastroduodenoscopy (EGD) History of colonoscopy (~11/09/23) History of wisdom tooth extraction History of rotator cuff surgery History of left mastectomy (~2003) History of bilateral breast implants History of back surgery History of bladder surgery History of hysterectomy (~1997) History of lumpectomy of left breast (~1992) Family History Paternal Grandmother Breast cancer Social History Household Members: Children Housing: House Do you presently have visiting nurse or other home services: No Alcohol intake: current Alcohol intake frequency: 0-2 drinks per day Patient Tobacco Use Status: Former Tobacco user Tobacco use type: Cigarette Cigarette Packs Per Day: 0.75 Cigarettes Per Day: 15 Years Smoked: 40 e-Cigarette/Vaping Use: Never Used Second Hand Smoke Exposure: No service: No Current occupational status: employed Sexual orientation: Straight/Heterosexual Gender identity: Female Cognitive needs: No Hearing needs: No Vision needs: Yes (reading glasses) Female Reproductive History Menstrual Age of Menarche: 14 Menopause type: surgical Total pregnancies: 4 Full term: 2 Number of Living Children: 2 Ab induced: 1 Ab spontaneous: 1 Date of last pap smear: 10/12/23 (neg pap and hpv) History of abnormal pap smear: Yes (hx hpv, precancerous cells) Date of Mammogram: 05/21/24 (Birad 2) History of abnormal mammogram: Yes (hx DCIS) Review of Systems Const All systems reviewed & are unremarkable except as noted in HPI and below Reports as per HPI Eyes Reports no additional complaints ENT Reports no additional complaints Card Reports no additional complaints Resp Reports no additional complaints GI Reports as per HPI and Reports no additional complaints Reports as per HPI Musc Reports no additional complaints Skin/Breast Reports as per HPI Neuro Reports no additional complaints Psych Reports no additional complaints Endo Reports no additional complaints Dioni/Lymph Reports no additional complaints Aller/Immun Reports no additional complaints Physical Exam Vital Signs: Last Vital Signs BP 144/86 H 03/20/25 10:44 BMI result Body Mass Index 28.2 Const General: cooperative, healthy appearing, no acute distress, well developed and alert Orientation/consciousness: patient oriented x3 HEENT Head: Yes normal to inspection Eyes General: appearance normal, both eyes and all related structures Neck Neck: Yes normal visual inspection Thyroid: Thyroid normal Chest Other: Left post surgical side implant is significantly smaller Chest palpation & inspection: normal inspection of the chest and other (no puckering, dimpling, peau de orange, retraction, discharge, masses) Breast/axilla inspection: normal inspection of the breasts Breast/axilla palpation: normal palpation of the breasts Resp Effort & Inspection: normal respiratory effort GI Inspection: Yes normal to inspection Palpation (GI): Soft to palpation Rectal Exam - Female: deferred General: Yes bladder normal to palpation External Female Exam: normal external appearance and normal appearance of the urethra Speculum Exam - Vagina: normal appearance of the vagina, normal palpation, normal vaginal discharge and vagina atrophic Speculum Exam - Cervix: Cervix absent (no lesions or nodules) Bimanual exam- vagina & uterus: normal bimanual exam, normal palpation, bladder normal to palpation and uterus absent Bimanual Exam- Adnexa, other: no masses Skin General skin exam: no rashes or lesions noted Rashes: no rashes Neuro General: patient oriented x3 Cognition (Neuro): normal cognition Extrem General: Yes normal to inspection Psych Attitude: cooperative Thought process: Normal thought process present Assessment & Plan Assessment & Plan (1) Encounter for well woman exam with routine gynecological exam: Code(s): Z01.419 - Encounter for gynecological examination (general) (routine) without abnormal findings Category: Medical Plan Discussed: Current recommendations for pap smears per ASCCP guidelines. Breast awareness, periodic self breast exams and yearly mammogram. Maintain a healthy lifestyle, well balanced diet including Calcium 1,200 mg and Vitamin D 600 IU daily, and routine exercise. Vulvar dryness-reveiwed products availalble OTC. Follow up with PCP, prior surgeon re: implant concerns. Pt. to check insurance benefits/coverage for replacement. Patient verbalizes understanding and agrees to the plan of care. She was given opportunity to ask questions and all questions were answered to the best of my ability. RTO in 1 year for annual aoc director combat operations officer exam. This note is constructed using voice recognition software. While every effort has been made to ensure accuracy, stone planer errors may have been included. Coding Level of Care Code Est Pt Prev Care >65y(88762) Diagnoses Encounter for well woman exam with routine gynecological exam Z01.419
--- OUTSIDE RECORDS SUMMARY | 2025-03-20 13:12 | XMS_ITS | Patient Health Record ---
Author Organization [facility] Address [address] [place] [address] Care Team Providers Care Market Sales Manager Name Role Phone BRANDIE LOGAN Primary Care Provider Rojelio Cooper Jr Unavailable [phone] Allergies Allergen (clinical drug ingredient) Drug/Non Drug Allergy documented on EMR Reaction Allergy Type Onset Date Status seasonal (uncoded) Unknown Allergy A ctive Results Component Value Reference Range Notes Complete Blood Count no Diff Reviewed date:01/24/2025 07:56:21 AM Interpretation: Performing Lab:[address] [id number] Notes/Report: White Blood Count 6.5 4.8-10.8 X10*3/uL [...] Reviewed date:01/23/2025 07:44:17 AM Interpretation: Performing Lab:[place] [address] [address] Notes/Report: Bilirubin Total 0.3 0.0-1.0 mg/dL Bilirubin Direct 0.1 0.0-0.5 mg/dL Aspartate Amino Transferase 35 5-31 U/L Alanine Aminotransferase 53 0-31 U/L Total Protein 6.9 6.5-8.0 g/dL Albumin Level 4.3 3.5-5.0 g/dL Alkaline Phosphatase 83 39-117 U/L Blood Urea Nitrogen Reviewed date:01/24/2025 07:56:16 AM Interpretation: Performing Lab:[address] [address] Notes/Report: Blood Urea Nitrogen 15 9-16 mg/dL Creatinine Reviewed date:01/24/2025 07:56:12 AM Interpretation: Performing Lab:[address] [address] Notes/Report: Creatinine 0.74 0.5-1.4 mg/dL Estimated Glomerular Filt Rate > 60 Chronic Kidney Disease: Estimated GFR < 60 mL/min/1.73m2 Severe Kidney Disease: Estimated GFR < 15 mL/min/1.73m2 Lipase Reviewed date:01/24/2025 07:56:08 AM Interpretation: Performing Lab:[address] [address] Notes/Report: Lipase 29 8-78 U/L CT abdomen pelvis w con Reviewed date:01/24/2025 07:55:58 AM Interpretation: Performing Lab: Notes/Report: [address] [address] [address] Scan Report Signed Patient: Sabine Marvin MR#: [id number] 315 : 1955 Acct:[id number] Age/Sex: 69 / F ADM Date: 01/22/25 Loc: HO.CT Attending Dr: Rojelio Lake MD Ordering Physician: Rojelio Lake MD Date of Service: 01/22/25 Procedure(s): CT abdomen pelvis w IV con Accession Number(s): [id number] cc: Rojelio Lake MD; Brandie Logan Report Number: [id number]: Total DLP = 526.00 mGy-cm Reason for [...] 01/22/25 1639 DD/ 1545 TD/TT: 01/22/25 1555 Fabric Separator Operator: Reason For Referral No Information Medications Medication SIG (Take, Route, Frequency, Duration) Notes Start Date End Date Status Probiotic 250 MG as directed Orally Active Montelukast Sodium 10 MG Oral; Duration: 30 Active PROzac 20 MG 1 capsule Orally Onc e a day; Duration: 30 day(s) Active Fluticasone Propionate 50 MCG/ACT Nasal; Duration: 30 Active Multi For Her - as directed Orally Active FLUoxetine HCl 20 MG Oral; Duration: 90 Active Simvastatin 20 MG 1 tablet in the even ing Orally Once a day; Duration: 30 day(s) Active Fluconazole 200 MG 1 tablet Orally radha y; Duration: 14 days 11/16/2023 Active Azithromycin 250 MG Oral; Duration: 28 Active Benzonatate 200 MG Oral; Duration: 30 Active Breo Ellipta 200-25 MCG/ACT Inhalation; Duration: 30 Active Calcium 1 tab Oral; Duration : 14 days Active Ondansetron HCl Not- Taking Allergy 10 MG 1 tablet Orally Once a day; Duration: 30 day(s) Active ALPRAZolam prn Active Flomax [...] Problem Status W/U Status Risk Notes Problem Colon cancer screening (706145083) Colon cancer screening (Z12.11) Active confirmed Problem Diverticulitis of colon (580390621) Diverticulitis of large intestine without perforation or abscess without bleeding (K57.32) Active confirmed Problem Periumbilical abdominal pain (878404154) Periumbilical abdominal pain (R10.33) Active confirmed Problem Loco's esophagus (534848971) 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) Active confirmed Problem Gas (99229541) Gas (R14.3) Active confirmed Problem Altered bowel function (10382886) Change in bowel function (R19.4) Active confirmed Problem Loco esophagus (048813054) Loco esophagus (K22.70) Active confirmed Problem Irritable bowel syndrome (20549206) Other irritable bowel syndrome (K58.8) Active confirmed Vital Signs Temperature 98.7 degrees Fahrenheit 11/08/2024 Blood pressure diastolic 01 mm Hg 11/08/2024 Height 64.5 in 11/08/2024 Blood pressure systolic 001 mm Hg 11/08/2024 Weight 160.6 lbs 11/08/2024 BMI 27.14 kg/m2 11/08/2024 Encounters Encounter Location Date Provider Diagnosis [facility] [address] [place] [phone] 11/08/2024 Rojelio Lake Jr Change in bowel function R19.4 and Gas R14.3 [facility] [address] [place] [phone] 11/26/2024 Rojelio Lake Jr Diverticulitis of large intestine without perforation or abscess without bleeding K57.32 [facility] [address] [place] [phone] 12/20/2024 Rojelio Lake Jr [facility] [address] [place] [address], [place] [address] 01/24/2025 Rojelio Lake Jr [facility] [address] [place] [address] 01/25/2025 Rojelio Lake Jr Assessments Encounter Date [...] Start Date Coverage End Date MEDICARE OF [place] [address] [place] [id number] SABINE MEADE Self - patient is the insured 3 [employer] ATTN CLAIMS [address] [place] [address] [phone] [id number] SABINE MEADE Self - patient is the [...]
== END 2025-03-20 11:21 | disposition home or self-care (01) ==
LOC: HO.HWS 10:38
PROVIDERS: PCP Internal Medicine; Visit Provider Advanced Practice Midwife
DX: Z01.419 Encounter for gynecological examination (general) (routine) without abnormal findings (principal)
CPT/HCPCS: G0101

== ENCOUNTER → 2025-03-20 10:37 | Outpatient (BNVA) | payer MEDICARE, SELFPAY | PROVIDERS: PCP Internal Medicine; Visit Provider Advanced Practice Midwife | DX: Z01.419 Encounter for gynecological examination (general) (routine) without abnormal findings (principal); Z90.710 Acquired absence of both cervix and uterus | CPT/HCPCS: G0101 ==

== ENCOUNTER 2025-04-09 21:02 | Emergency (ER) | payer MEDICARE, SELFPAY ==
--- OUTSIDE RECORDS SUMMARY | 2023-11-09 08:40 | XMS_ITS ---
Author Organization [facility] Address [address] [place] [phone] Care Team Providers Care Accounting Advisory Services Manager Name Role Phone THANIA SARGENT Primary Care Provider Rojelio Cooper Jr Unavailable REASON FOR VISIT periumbilical pain Problems Problem Type SNOMED Code ICD Code Onset Dates Problem Status W/U Status Risk Notes Problem Loco esophagus (560723343) Loco esophagus (K22.70) Active confirmed Encounters Encounter Location Date Provider Diagnosis [facility] [place] Outpatient [address] [place] [phone] 11/09/2023 Rojelio Lake Jr Colon cancer screening [...] * SABINE TOUSSAINT CDOB:1955 (69 yo F)Acc No.[id number]:11/09/2023 EGD and COL/MAC Patient: Lexie SABINE LOCKE Provider: Rocio Lake MD :1955 A ge:68 Y S ex:Female Date:11/09/2023 Address:[address] [place], [place] [phone] Pcp:THANIA SARGENT Subjective: * Chief Complaints: * P eriumbilical pain Assessment: * Assessment: 1. C olon cancer screening - Z12.11 (Primary) 2 . C olon polyps - K63.5? 3. B arrett esophagus - K22.70 4 . A bdominal pain, periumbilical - R10.33 Plan: * Procedure Codes: 4 5385 LESION REMOVAL [id number] UPPER GI ENDOSCOPY, BIOPSY Billing Information: * Procedure Codes: 40479 LESION REMOVAL COLONOSCOPY. 01152 UPPER GI ENDOSCOPY, BIOPSY. * The named appointment provid er may or may not be the originator of this progress note, and it is not deemed complete until electronically signed by the appointment provider. Sign off status: Pending * Provider: Rocio Lake MD Date: 0 11/09/2023 Generated for Bebe neville/Anushka/Baitting on: 06/10/2024 02:12 PM EST
--- OUTSIDE RECORDS SUMMARY | 2025-01-04 04:40 | XMS_ITS ---
Author Organization [facility] Address [address] [place] [phone] Care Team Providers Care Life Enrichment Specialist Name Role Phone THANIA SARGENT Primary Care Provider Rojelio Cooper Jr Unavailable REASON FOR VISIT Patient presents today for diverticulitis Encounters Encounter Location Date Provider Diagnosis [facility] [address] [facility] [address] [place] [phone] 01/04/2025 Rojelio Lake Jr Plan Of Treatment No Information Progress Notes * SABINE TOUSSAINT CDOB:1955 (69 yo F)Acc No.[id number]:01/04/2025 Progress Notes Patient: SABINE KELLER Provider: Rocio Lake MD :1955 A ge:69 Y S ex:Female Date:01/04/2025 Address:[address] [place], [place] [id number] Pcp:THANIA SARGENT Subjective: * Chief Complaints: * P atient presents today for diverticulitis * The named appointment provid er may or may not be the originator of this progress note, and it is not deemed complete until electronically signed by the appointment provider. Sign off status: Pending * Provider: Rocio Lake MD Date: 0 01/04/2025 Generated for Bebe neville/Anushka/eTransmitting on: 1 06/10/2024 02:12 PM EST
--- NOTE | ~2025-04-09 | XR_ITS ---
CLINICAL HISTORY: sepsis 2 view chest x-ray Comparison: None provided Findings: Lungs are clear without acute infiltrates. No pneumothorax. Heart size normal. No acute bony abnormalities. Left axillary surgical clips. Probable partial left mastectomy. Right breast implant noted. Impression: No acute processes This document has been electronically signed by: Sarthak Palacio MD on 04/09/2025 22:40:23
[2025-04-09 21:04] VITALS: BP 169/87; PULSE 124; RESP 20; TEMP 38.3; O2SAT 93; BMI 28.7
[2025-04-09 21:22] VITALS: BP 163/89; PULSE 115; RESP 20; TEMP 38; O2SAT 94
[2025-04-09] MEDS: Lactated Ringers 1,000 ML 999 ML IV (21:33)
[2025-04-09 21:38] LABS: MANUAL DIFF FLAG NO
[2025-04-09 21:39] LABS: Hematocrit 40.9 % (37.0-47.0); Hemoglobin 13.6 g/dl (12.0-16.0); Imm Gran Abs Auto 0.05 X10*3/uL (0.00-0.03); Imm Gran Pct Auto 0.8 % (0.0-0.4); Lymphocytes Absolute Auto 0.6 X10*3/uL (1.2-4.9); Mean Corpuscular HGB Conc 33.3 g/dl (31.0-35.0); Mean Corpuscular Hemoglobin 32.3 pg (27.0-33.0); Mean Corpuscular Volume 97.1 fL (80.0-98.0); NRBC Abs Auto 0.000 X10*3/uL (0.0-0.012); NRBC Pct Auto 0.0 /100WBC (0.0-0.2); Platelet Count 261 X10*3/uL (160-400); Red Blood Count 4.21 X10*6/uL (4.20-5.50); White Blood Count 6.5 X10*3/uL (4.8-10.8)
[2025-04-09 21:46] LABS: INTERNATIONAL NORM RATIO 1.0 (0.9-1.1); Prothrombin Time 12.6 SEC (11.2-13.5)
[2025-04-09 21:55] LABS: IDNOW Serial# 152EDE1D; Strep A Nucleic Acid Negative (Negative)
[2025-04-09 21:59] LABS: Alanine Aminotransferase 50 U/L (0-31); Albumin Level 4.1 g/dL (3.5-5.0); Alkaline Phosphatase 94 U/L (39-117); Anion Gap 12 (12-20); Aspartate Amino Transferase 38 U/L (5-31); Blood Urea Nitrogen 10 mg/dL (9-16); Calcium 9.6 mg/dL (8.4-10.2); Carbon Dioxide 24 mmol/L (22-29); Chloride 103 mmol/L (96-108); Creatinine Clr Calc Pharmacy 53.4; Estimated Glomerular Filt Rate 54; Potassium 3.9 mmol/L (3.3-5.1); Sodium 135 mmol/L (135-145); Total Protein 7.1 g/dL (6.5-8.0)
--- NOTE | 2025-04-09 22:19 | ED.ABDPAIN ---
HPI - Abdominal Pain General Chief Complaint: Abdominal Pain Stated Complaint: Stomach Pain Time Seen by Provider: 04/09/25 21:16 Source: patient Mode of arrival: ambulatory Limitations: no limitations History of Present Illness ED Provider: Dr. Danielle Silver HPI narrative: 69-year-old female with past medical history significant for recurrent diverticulitis (hospitalized November 2024 for colonic abscess), COPD, mild asthma, depression, bilateral breast cancer s/p mastectomy with silicone reconstruction, and umbilical hernia presents to the ED for evaluation of worsening lower abdominal cramping and fever. ? Abdominal pain/cramping has been intermittent for ~1 month, worse over the last several days, notably severe in the mornings. ? Associated constipation with passage of only small ?stringy? stools; multiple unsuccessful attempts to defecate. Took a laxative yesterday with limited effect early this AM. ? Denies vomiting; no visible blood in stool. ? Reports baseline urinary frequency; today notes mild dysuria but no visible hematuria. ? Developed subjective fever and chills earlier today?recorded Tmax 102 ?F at home (baseline temperature ~96.5 ?F). Took ibuprofen 2 hours prior to arrival; received acetaminophen in ED with some symptomatic improvement. ? Also endorses sore throat and sinus congestion since yesterday; no productive cough. Strep swab obtained. ? Breast implant (mastectomy side) appears flatter over the past ~6 months; no acute change today. ? Quit smoking May 2024; notes weight gain since. ? Recent exposure to grandchildren with colds; received influenza vaccine last week. ? Current outpatient regimen includes probiotics and fiber. No other acute complaints. Related Data Home Medications ?Medication ?Instructions ?Recorded ?Confirmed cholecalciferol (vitamin D3) 10 20 mcg PO DAILY 09/18/24 02/01/25 mcg (400 unit) tablet alprazolam 0.25 mg tablet 0.25 mg PO ONCE PRN anxiety 12/07/24 02/01/25 calcium carb, citrate, malate mg PO 12/07/24 02/01/25 Previous Rx's ?Medication ?Instructions ?Recorded montelukast 10 mg tablet 10 mg PO BEDTIME #30 tabs 08/09/24 cetirizine 10 mg tablet 10 mg PO DAILY PRN for allergies 08/30/24 #90 ea fluoxetine 20 mg capsule 20 mg PO DAILY #90 caps 08/30/24 guaifenesin 600 mg tablet, 600 mg PO Q12H PRN congestion #20 04/10/25 extended release 12 hr (Mucinex) tabs sodium chloride 0.65 % nasal spray 2 spray intranasal QID PRN nasal 04/10/25 aerosol (Saline Nasal) congestion #44 mL Allergies Allergy/AdvReac Type Severity Reaction Status Date / Time amoxicillin (AMOXICILLIN) Allergy Severe HIVES Verified 04/09/25 21:12 Sulfa (Sulfonamide Allergy Severe HIVES,SWELL Verified 04/09/25 21:12 Antibiotics) (SULFA ING (SULFONAMIDE ANTIBIOTICS)) morphine AdvReac Hallucinati Verified 04/09/25 21:12 ons ENVIROMENTAL Allergy Mild NASAL Uncoded 10/10/24 11:22 CONGESTION Review of Systems Review of Systems as per HPI, full review of systems performed and negative but for the above mentioned pertinent positives and negatives. [facility] Past Medical History Medical History Colonic diverticular abscess Umbilical hernia History of left breast cancer (~1992) Nicotine dependence, cigarettes, uncomplicated Chronic bronchitis Chronic cough Chronic allergic rhinitis Osteopenia (~2016) GERD (gastroesophageal reflux disease) Hepatic steatosis Diverticulitis Loco's esophagus Basal cell carcinoma Depression Surgical History History of esophagogastroduodenoscopy (EGD) History of colonoscopy (~11/09/23) History of wisdom tooth extraction History of rotator cuff surgery History of left mastectomy (~2003) History of bilateral breast implants History of back surgery History of bladder surgery History of hysterectomy (~1997) History of lumpectomy of left breast (~1992) Family History Family History Paternal Grandmother Breast cancer Social History Social History Household Members: Children Housing: House Do you presently have visiting nurse or other home services: No Alcohol intake: current Alcohol intake frequency: 0-2 drinks per day Patient Tobacco Use Status: Former Tobacco user Tobacco use type: Cigarette Cigarette Packs Per Day: 0.75 Cigarettes Per Day: 15 Years Smoked: 40 e-Cigarette/Vaping Use: Never Used Second Hand Smoke Exposure: No Advance Directives: No Advance Directives Information Provided: No service: No Current occupational status: employed Sexual orientation: Straight/Heterosexual Gender identity: Female Cognitive needs: No Hearing needs: No Vision needs: Yes (reading glasses) Physical Exam ED Exam Exam: GENERAL: Ill-Appearing, appears uncomfortable. SKIN: Normal skin color for ethnicity, warm, dry, no rashes noted. HEENT:? Normocephalic, atraumatic, no stridor, dry mucous membranes, dentition intact, EOMI. NECK: Soft, supple, full ROM, midline structures nontender, no step-offs, no deformities, no lymphadenopathy. CHEST: Heart regular tachycardia, no murmurs, symmetric chest rise and fall. PULMONARY: Clear to auscultation bilaterally, diminished at the bases, no labored breathing, no wheezes/rhales/rhonchi. ABDOMINAL: Softly distended, nontender, quiet bowel sounds in all quadrants. : Deferred. MUSCULOSKELETAL: Normal tone, full range of motion, no deformities, no peripheral edema. NEURO: Alert and oriented x3, CN II through XII intact, equal strength and sensation bilateral upper and lower extremities, no focal neurologic deficits.? PSYCHIATRIC: Flat affect, fluid speech, good eye contact and appropriate demeanor. Vital Signs: Vital Signs - 24 hr 04/09/25 21:04 04/09/25 21:22 04/09/25 22:43 Temperature 100.9 F H 100.4 F 99.2 F Pulse Rate 124 H 115 H 97 Respiratory Rate 20 20 18 Blood Pressure 169/87 H 163/89 H 145/85 H Pulse Oximetry 93 94 96 Oxygen Delivery Method Room Air Room Air Room Air 04/09/25 22:59 Temperature Pulse Rate Respiratory Rate Blood Pressure 125/58 L Pulse Oximetry Oxygen Delivery Method BMI result Body Mass Index 28.7 Medical Decision Making Medical Decision Making MDM Narrative: 69-year-old woman with abdominal pain, fever, and history of complicated diverticulitis, currently meets SIRS criteria (fever, tachycardia). Differential includes urinary tract infection, recurrent diverticulitis/colonic abscess, influenza or other viral URI, and streptococcal pharyngitis. Problem #1: Abdominal pain/Constipation ? r/o recurrent diverticulitis vs partial obstruction Assessment: Intermittent lower abdominal cramping with constipation; prior episode of colonic abscess November 2024; currently afebrile after antipyretics but initial fever concerning. Exam/labs pending. Plan: - Monitor abdominal exam and vitals in ED. - Await CBC; if WBC elevated and/or persistent pain, proceed with CT abdomen/pelvis. Problem #2: Fever / Possible Sepsis Assessment: Tmax 102 ?F at home, tachycardia in ED; source undifferentiated. Plan: - Continue antipyretics (acetaminophen) and IVF. Problem #3: Dysuria ? r/o Urinary Tract Infection Assessment: Mild discomfort with urination; baseline frequency; UTI possible contributor to fever. Plan: - Urinalysis and culture pending. Problem #4: Upper Respiratory Symptoms / Sore Throat Assessment: Sore throat, sinus congestion; exposure to grandchildren with colds. Plan: - Strep swab pending; treat per result. - Symptomatic care for viral syndrome if strep negative. 12:17 AM 04/10/2025 (Dr. Danielle Silver, D.O.) urinalysis is negative. Patient did flag positive for COVID-19. I do believe this is causing most of her symptoms today. I discussed this with her at length. Her abdominal exam is very benign. No peritoneal signs, very low suspicion for diverticulitis or abscess in the abdomen despite her history. That being said, we had an extensive discussion regarding return precautions and I encouraged her to come back to the hospital if her fevers continue for more than the next few days or if she were to develop hematochezia. Using shared decision-making, she opted to avoid Paxlovid due to GI side effects. I think that is reasonable as well. She has had a COVID booster last flu season but not this season because it was not offered of the hospital this year. Plan for discharge home and outpatient follow up. Discharged in stable and improved condition. Differential Diagnosis Differential Diagnoses: The differential diagnosis associated with the presentation includes (as above) Admission/Observation Consideration of admission/observation: Escalation of care including admission/observation considered Lab Data MDM Lab Attestation statement: I reviewed the patient's lab results. 04/09/25 21:31 04/09/25 21:31 Labs: Lab Results 04/09/25 04/09/25 Range/Units 21:31 22:47 WBC 6.5 (4.8-10.8) X10*3/uL RBC 4.21 (4.20-5.50) X10*6/uL Hgb 13.6 (12.0-16.0) g/dl Hct 40.9 (37.0-47.0) % MCV 97.1 (80.0-98.0) fL MCH 32.3 (27.0-33.0) pg MCHC 33.3 (31.0-35.0) g/dl RDW 12.0 (11.0-16.0) % Plt Count 261 (160-400) X10*3/uL MPV 9.4 (9.4-12.3) fL Immature Gran % (Auto) 0.8 H (0.0-0.4) % Neut % (Auto) 73.5 H (45-73) % Lymph % (Auto) 9.8 L (20-40) % [place] % (Auto) 12.7 H (2-11) % Eos % (Auto) 2.6 (0-4) % Baso % (Auto) 0.6 (0-2) % Lymph # (Auto) 0.6 L (1.2-4.9) X10*3/uL [place] # (Auto) 0.8 (0.1-1.2) X10*3/uL Eos # (Auto) 0.2 (0.0-0.4) X10*3/uL Baso # (Auto) 0.0 (0.0-0.2) X10*3/uL Abs Immat Gran (auto) 0.05 H (0.00-0.03) X10*3/uL Absolute Neuts (auto) 4.8 (2.0-8.3) x10*3/uL Absolute Nucleated RBC 0.000 (0.0-0.012) X10*3/uL Nucleated RBC % (auto) 0.0 (0.0-0.2) /100WBC PT 12.6 (11.2-13.5) SEC INR 1.0 (0.9-1.1) Sodium 135 (135-145) mmol/L Potassium 3.9 (3.3-5.1) mmol/L Chloride 103 (96-108) mmol/L Carbon Dioxide 24 (22-29) mmol/L Anion Gap 12 (12-20) BUN 10 (9-16) mg/dL Creatinine 1.02 (0.5-1.4) mg/dL Estim Creat Clear Calc 53.4 Estimated GFR 54 Random Glucose 119 H (60-115) mg/dL Lactic Acid 0.8 (0.5-2.0) mmol/L Calcium 9.6 D (8.4-10.2) mg/dL Total Bilirubin 0.3 (0.0-1.0) mg/dL AST 38 H (5-31) U/L ALT 50 H (0-31) U/L Alkaline Phosphatase 94 (39-117) U/L Total Protein 7.1 (6.5-8.0) g/dL Albumin 4.1 (3.5-5.0) g/dL Urine Color Yellow Urine Appearance Clear Urine pH 7.0 (5.0-9.0) Ur Specific [place] 1.010 (1.005-1.025) Urine Protein Negative (Neg-Trace) mg/dL Urine Glucose (UA) Negative (Negative) mg/dL Urine Ketones Negative (Negative) mg/dL Urine Blood Negative (Negative) Urine Nitrite Negative (Negative) Ur Leukocyte Esterase Negative (Negative) Influenza Type A (PCR) NEGATIVE (Negative) Influenza Type B (PCR) NEGATIVE (Negative) RSV RNA Qual (PCR) NEGATIVE (Negative) SARS-CoV-2 RNA (RT-PCR) POSITIVE A (Negative) S. pyogenes GrpA MARIANNE Negative (Negative) Independent Interpretation I performed an independent interpretation of an: Plain X-Ray Interpretation: My independent interpretation of the chest x-ray reveals no consolidations, pulmonary edema, pleural effusion, pneumothorax, obvious bony abnormalities. Radiology Impression Discussion of test interpretation with radiology: I have reviewed the radiologist's reading. External Record Review External record reviewed: Inpatient record Chronic Conditions Patient?s care impacted by: Cancer and Other (COPD) Medications Administered Discontinued Medications Generic Name Dose Route Start Last Admin Trade Name Freq PRN Reason Stop Dose Admin Lactated Ringer's 1,000 mls @ 999 mls/hr 04/09/25 21:20 04/09/25 22:34 Lr IV 04/09/25 22:20 Infused .Q1H1M ONE Infusion Acetaminophen 1,000 mg in 100 mls @ 400 mls/hr 04/09/25 21:20 04/09/25 22:34 Ofirmev IV 04/09/25 21:34 Infused ONCE ONE Infusion Discharge Plan Discharge Clinical Impression: COVID-19, Acute febrile illness, Acute exacerbation of chronic abdominal pain Patient Disposition: Home, Self-Care Instructions: COVID-19 (Coronavirus Disease 2019) (ED) Additional Instructions: Stay well hydrated over the next several days. Drink plenty of water and treat your fevers with Tylenol and ibuprofen. Return to the emergency department with any new or worsening symptoms including: Worsening pain in your abdomen despite improvement in sinus congestion, continued fevers for more than 5 days in a row, bloody stools, any new symptom that concerns you. Call 911 with any medical emergency. Prescriptions: New guaifenesin [Mucinex] 600 mg tablet extended release 12hr 600 mg PO Q12H PRN (Reason: congestion) Qty: 20 0RF Saline Nasal 0.65 % aerosol,spray 2 spray intranasal QID PRN (Reason: nasal congestion) Qty: 44 0RF No Action montelukast 10 mg tablet 10 mg PO BEDTIME Qty: 30 10RF cholecalciferol (vitamin D3) 10 mcg (400 unit) tablet 20 mcg PO DAILY alprazolam 0.25 mg tablet 0.25 mg PO ONCE PRN (Reason: anxiety) calcium carb, citrate, malate 250 mg calcium capsule PO cetirizine 10 mg tablet 10 mg PO DAILY PRN (Reason: for allergies) Qty: 90 3RF fluoxetine 20 mg capsule 20 mg PO DAILY Qty: 90 3RF Print Language: Slovenian
[2025-04-09 22:22] LABS: Resp Syncy Virus RNA Qual PCR NEGATIVE (Negative); SARS COV2 PCR INHOUSE POSITIVE (Negative)
[2025-04-09 22:43] VITALS: BP 145/85; PULSE 97; RESP 18; TEMP 37.3; O2SAT 96
[2025-04-09 22:55] LABS: Appearance Urine Clear; Glucose Urine UA Negative (Negative); PH 7.0 (5.0-9.0); Specific Gravity - Urine 1.010 (1.005-1.025)
[2025-04-09 22:59] VITALS: BP 125/58
[2025-04-10 00:29] VITALS: BP 148/84; PULSE 90; RESP 16; TEMP 36.9; O2SAT 96
[2025-04-10 00:35] VITALS: BP 148/84; PULSE 90; RESP 16; TEMP 36.9; O2SAT 96
--- OUTSIDE RECORDS SUMMARY | 2025-04-10 14:12 | XMS_ITS | Patient Health Record ---
Author Organization [facility] Address [address] [place] [address] Care Team Providers Care Electric Welder Name Role Phone BRANDIE LOGAN Primary Care Provider Rojelio Cooper Jr Unavailable Allergies Allergen (clinical drug ingredient) Drug/Non Drug Allergy documented on EMR Reaction Allergy Type Onset Date Status seasonal (uncoded) Unknown Allergy A ctive Results Component Value Reference Range Flag Notes Complete Blood Count no Diff Reviewed date:01/24/2025 07:56:21 AM Interpretation: Performing Lab:[facility], [address] [place] [phone] Notes/Report: White Blood Count 6.5 4.8-10.8 X10*3/uL N Red Blood Count 4.48 4.20-5.50 X10*6/uL N Hemoglobin 14.2 12.0-16.0 g/dl N Hematocrit 43.9 37.0-47.0 % N Mean Corpuscular Volume 98.0 80.0-98.0 fL N Mean Corpuscular Hemoglobin 31.7 27.0-33.0 pg N Mean Corpuscular HGB Conc 32.3 31.0-35.0 g/dl N Red Cell Distribution Width 13.3 11.0-16.0 % N Platelet Count 268 160-400 X10*3/uL N Mean Platelet Volume 9.9 9.4-12.3 fL N NRBC Pct Auto 0.0 0.0-0.2 /100WBC N NRBC Abs Auto 0.000 0.0-0.012 X10*3/uL N Liver Panel Reviewed date:01/23/2025 07:44:17 AM Interpretation: Performing Lab:[facility], [address] [place] [phone] Notes/Report: Bilirubin Total 0.3 0.0-1.0 mg/dL N Bilirubin Direct 0.1 0.0-0.5 mg/dL N Aspartate Amino Transferase 35 5-31 U/L H Alanine Aminotransferase 53 0-31 U/L H Total Protein 6.9 6.5-8.0 g/dL N Albumin Level 4.3 3.5-5.0 g/dL N Alkaline Phosphatase 83 39-117 U/L N Blood Urea Nitrogen Reviewed date:01/24/2025 07:56:16 AM Interpretation: Performing Lab:[facility], [address] [place] [phone] Notes/Report: Blood Urea Nitrogen 15 9-16 mg/dL N Creatinine Reviewed date:01/24/2025 07:56:12 AM Interpretation: Performing Lab:[facility], [address] [place] [phone] Notes/Report: Creatinine 0.74 0.5-1.4 mg/dL N Estimated Glomerular Filt Rate > 60 Chronic Kidney Disease: Estimated GFR < 60 mL/min/1.73m2 Severe Kidney Disease: Estimated GFR < 15 mL/min/1.73m2 Lipase Reviewed date:01/24/2025 07:56:08 AM Interpretation: Performing Lab:[facility], [address] [place] [phone] Notes/Report: Lipase 29 8-78 U/L N CT abdomen pelvis w con Reviewed date:01/24/2025 07:55:58 AM Interpretation: Performing Lab: Notes/Report: [address] [address] [address] Scan Report Signed Patient: Sabine Marvin MR#: [id number] 315 : 1955 Acct:[id number] Age/Sex: 69 / F ADM Date: 01/22/25 Loc: HO.CT Attending Dr: Rojelio Lake MD Ordering Physician: Rojelio Lake MD Date of Service: 01/22/25 Procedure(s): CT abdomen pelvis w IV con Accession Number(s): [id number] cc: Rojelio Lake MD; Brandie Logan Report Number: [id number]: Total DLP = 526.00 mGy-cm Reason for [...] 01/22/25 1639 DD/ 1545 TD/TT: 01/22/25 1555 Fringe Weaver: Reason For Referral No Information Medications Medication SIG (Take, Route, Frequency, Duration) Notes Start Date End Date Status Probiotic 250 MG Capsule as directed Orally Active Montelukast Sodium 10 MG Tablet Oral; Duration: 30 Active PROzac 20 MG Capsule 1 capsule Orally On ce a day; Duration: 30 day(s) Active Fluticasone Propionate 50 MCG/ACT Suspension Nasal; Duration: 30 Active Multi For Her - Tablet as directed Orally Active FLUoxetine HCl 20 MG Capsule Oral; Duration: 90 Active Simvastatin 20 MG Tablet 1 tablet in the evening Orally Once a day; Duration: 30 day(s) Active Fluconazole 200 MG Tablet 1 tablet Orally daily; Duration: 14 days 11/16/2023 Active Azithromycin 250 MG Tablet Oral; Duration: 28 Active Benzonatate 200 MG Capsule Oral; Duration: 30 Active Breo Ellipta 200-25 MCG/ACT Aerosol Powder Breath Activated Inhalation; Duration: 30 Active Calcium 1 tab Oral; Duration : 14 days Active Ondansetron HCl Not- Taking/PRN Allergy 10 MG Tablet 1 tablet Orally Onc e a day; Duration: 30 day(s) Active ALPRAZolam prn Active Flomax Active Immunizations Vaccine Route Administration Date Status Comme nts Influenza Unknown 03/08/2018 Administered Influenza Unknown 02/20/2019 Administered Influenza Unknown 04/13/2022 Administered Influenza Unknown 02/08/2023 Administered Influenza Unknown 03/14/2024 Administered Social History Tobacco Use: Social History Observation Description Date Details (start date - stop date) Former Smoker NA - NA Social History Drugs/Alcohol: Social Info Question Answer Notes Alcohol Screen Did you have a drink containing alcohol in the past year? Yes How often did you have a drink containing alcohol in the past year? 4 or more times a week (4 points) How many drinks did you have on a typical day when you were drinking in the past year? 1 or 2 drinks (0 point) How often did you have 6 or more drinks on one occasion in the past year? 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 [employer] Problems Problem Type SNOMED Code ICD Code Onset Dates Problem Status W/U Status Risk Notes Problem Colon cancer screening (576630786) Colon cancer screening (Z12.11) Active confirmed Problem Diverticulitis of colon (042014090) Diverticulitis of large intestine without perforation or abscess without bleeding (K57.32) Active confirmed Problem Periumbilical abdominal pain (741085861) Periumbilical abdominal pain (R10.33) Active confirmed Problem Loco's esophagus (236298454) 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) Active confirmed Problem Gas (16399706) Gas (R14.3) Active confirmed Problem Altered bowel function (56345049) Change in bowel function (R19.4) Active confirmed Problem Loco esophagus (708878174) Loco esophagus (K22.70) Active confirmed Problem Irritable bowel syndrome (91895245) Other irritable bowel syndrome (K58.8) Active confirmed Vital Signs Temperature 98.7 degrees Fahrenheit 11/08/2024 Blood pressure diastolic 01 mm Hg 11/08/2024 Height 64.5 in 11/08/2024 Blood pressure systolic 001 mm Hg 11/08/2024 Weight 160.6 lbs 11/08/2024 BMI 27.14 kg/m2 11/08/2024 Encounters Encounter Location Date Provider Diagnosis [facility] [address] [place] [phone] 11/08/2024 Rojelio Lake Jr Change in bowel function R19.4 and Gas R14.3 [facility] [address] [place] [phone] 11/26/2024 Rojelio Lake Jr Diverticulitis of large intestine without perforation or abscess without bleeding K57.32 [facility] [address] [place] [address] 12/20/2024 Rojelio Lake Jr [facility] [address] [place] [address] 01/24/2025 Rojelio Lake Jr [facility] [address] [place] [address] 01/25/2025 Rojelio Lake Jr Assessments Encounter Date [...] 11/26/2024 CREATININE 11/26/2024 LIVER PROFILE 10/20/2023 LIPASE 10/20/2023 LIPASE 11/26/2024 CBC w/o DIFF 11/26/2024 CBC w/o DIFF 10/20/2023 CT ABD & PELVIS WITH CONTRAST 11/26/2024 Liver Panel 11/26/2024 Future Test Test Name Order Date UPPER GI ENDOSCOPY 08/25/2018 COLONOSCOPY 08/25/2018 UPPER GI ENDOSCOPY 10/20/2023 COLONOSCOPY 10/20/2023 Insurance Providers Payer Name Payer Address Payer Phone Subscriber Number Group Number Insured Name Patient Relationship to Insured Coverage Start Date Coverage End Date MEDICARE OF [place] [address] [place] [id number] SABINE MEADE Self - patient is the insured 3 MEDEX ATTN CLAIMS [address] [place] [address] [phone] [id number] SABINE MEADE Self - patient is the insured Medical (General) History Medical History History ICD Code breast cancer x2 anxiety/depression allergic rhinitis frequent urination Loco's esophagus/gastroesophageal ref lux disease Surgical History Surgery Date(Month/Year) mastectomy 2004 lumpectomy 1992 rotator cuff 1994 Bladder suspension 1991 EGD/colon, no intestinal met aplasia, tubular adenoma x1, three-year EGD/colon followup. 11/13 non invasive back surgery-day surgery
== END 2025-04-10 00:36 | disposition home or self-care (01) ==
PROVIDERS: Emergency Provider Emergency Medicine; PCP Physician Assistant
DX: U07.1 COVID-19 (principal); R10.9 Unspecified abdominal pain; G89.29 Other chronic pain; J44.89 Other specified chronic obstructive pulmonary disease; R35.0 Frequency of micturition; R30.0 Dysuria; Z88.0 Allergy status to penicillin; Z88.2 Allergy status to sulfonamides
CPT/HCPCS: 71046; 80053; 81003; 83605; 85025; 85610; 87040; 87637; 87651; 96361; 96374; 99284; 99285; J0131; J7120

== ENCOUNTER → 2025-04-09 21:16 | Outpatient (BNV) | payer MEDICARE, SELFPAY | PROVIDERS: Emergency Provider Emergency Medicine; PCP Physician Assistant; Visit Provider Radiology Diagnostic Radiology | DX: A41.9 Sepsis, unspecified organism (principal) | CPT/HCPCS: 71046 ==

== ENCOUNTER 2025-04-17 08:54 | Outpatient (AMB) | payer MEDICARE, SELFPAY ==
--- OUTSIDE RECORDS SUMMARY | 2023-11-09 08:40 | XMS_ITS ---
Author Organization [facility] Address [address] [place] [phone] Care Team Providers Care Scientific Glass Blower Name Role Phone THANIA SARGENT Primary Care Provider Rojelio Cooper Jr Unavailable REASON FOR VISIT periumbilical pain Problems Problem Type SNOMED Code ICD Code Onset Dates Problem Status W/U Status Risk Notes Problem Information temporarily unavailable Loco esophagus (K22.70) Active confirmed Encounters Encounter Location Date Provider Diagnosis [facility] [place] Outpatient [address] [place] [phone] 11/09/2023 Rojelio Lake Jr Colon cancer screening Z12.11 ; Colon polyps K63.5 ; Loco esophagus K22.70 and Abdominal pain, periumbilical R10.33 Assessments Encounter Date Diagnosis (ICD Code) Assessment Notes Treatment Notes Treatment Clinical Notes Section Notes 11/09/2023 Colon cancer screening (ICD-10 - Z12.11) 11/09/2023 Colon polyps (ICD-10 - K63.5) 11/09/2023 Loco esophagus (ICD-10 - K22.70) 11/09/2023 Abdominal pain, periumbilical (ICD-10 - R10.33) Plan Of Treatment No Information Progress Notes * SABINE TOUSSAINT CDOB:1955 (69 yo F)Acc No.[id number]:11/09/2023 EGD and COL/MAC Patient: SABINE KELLER Provider: Rocio Lake MD :1955 A ge:68 Y S ex:Female Date:11/09/2023 Address:[address] [place], [place] [phone] Pcp:THANIA SARGENT Subjective: * Chief Complaints: * P eriumbilical pain Assessment: * Assessment: 1. C olon cancer screening - Z12.11 (Primary) 2 . C olon polyps - K63.5? 3. B arrett esophagus - K22.70 4 . A bdominal pain, periumbilical - R10.33 Plan: * Procedure Codes: 4 5385 LESION REMOVAL [id number] UPPER GI ENDOSCOPY, BIOPSY Billing Information: * Procedure Codes: 56296 LESION REMOVAL COLONOSCOPY. 00696 UPPER GI ENDOSCOPY, BIOPSY. * The named appointment provid er may or may not be the originator of this progress note, and it is not deemed complete until electronically signed by the appointment provider. Sign off status: Pending * Provider: Rocio Lake MD Date: 0 11/09/2023 Generated for Bebe neville/Anushka/Baitting on: 1 06/17/2024 09:28 AM EST
--- OUTSIDE RECORDS SUMMARY | 2025-01-04 04:40 | XMS_ITS ---
Author Organization [facility] Address [address] [place] [phone] Care Team Providers Care Statistics Professor Name Role Phone THANIA SARGENT Primary Care Provider Rojelio Cooper Jr Unavailable REASON FOR VISIT Patient presents today for diverticulitis Encounters Encounter Location Date Provider Diagnosis [facility] [address] [facility] [address] [place] [phone] 01/04/2025 Rojelio Lake Jr Plan Of Treatment No Information Progress Notes * SABINE TOUSSAINT CDOB:1955 (69 yo F)Acc No.[id number]:01/04/2025 Progress Notes Patient: SABINE KELLER Provider: Rocio Lake MD :1955 A ge:69 Y S ex:Female Date:01/04/2025 Address:[address] [place], [place] [phone] Pcp:THANIA SARGENT Subjective: * Chief Complaints: * P atient presents today for diverticulitis * The named appointment provid er may or may not be the originator of this progress note, and it is not deemed complete until electronically signed by the appointment provider. Sign off status: Pending * Provider: Rocio Lake MD Date: 0 01/04/2025 Generated for Bebe neville/Anushka/eTransmitting on: 1 06/17/2024 09:28 AM EST
--- NOTE | 2025-04-17 08:59 | MHC.PC.OV ---
Vital Signs 04/17/25 09:02 Height 5 ft 4 in Weight 74.106 kg BMI 28.0 BP 130/84 Blood Pressure Location Rt brachial Position Sitting Respiration 16 Pulse 96 Pulse Source Pulse Oximeter Temp 97.7 F Temp Source Temporal Artery Scan Pulse Oximetry (%) 96 Oxygen Delivery Method Room Air Intake Visit Reasons: bowel issues Dish Carrier Required: No Accompanied by: Self / Same As Patient Allergies amoxicillin (AMOXICILLIN) Allergy (Severe, Verified 04/17/25 09:00) HIVES Sulfa (Sulfonamide Antibiotics) (SULFA (SULFONAMIDE ANTIBIOTICS)) Allergy (Severe, Verified 04/17/25 09:00) HIVES,SWELLING morphine Adverse Reaction (Verified 04/17/25 09:00) Hallucinations ENVIROMENTAL Allergy (Mild, Uncoded 10/10/24 11:22) NASAL CONGESTION Medication List - Last Reconciled 04/17/25 by ROB Topete alprazolam 0.25 mg PO ONCE PRN calcium carb, citrate, malate mg PO cetirizine 10 mg PO DAILY PRN cholecalciferol (vitamin D3) 20 mcg PO DAILY fluoxetine 20 mg PO DAILY guaifenesin ER (Mucinex) 600 mg PO Q12H PRN montelukast 10 mg PO BEDTIME PRN sodium chloride 0.65% (Saline Nasal) 2 sprays intranasal QID PRN sucralfate 1 g PO QIDACHS Tobacco use date assessed: 08/30/24 Fall risk assessment: No Falls in past year Last assessed Fall Risk: 04/17/25 Dental Screening Dental Screen Date: 04/17/25 Did you have a dental visit in the last 12 months?: Yes Did you have a dental problem in the last 6 months where you did not have access to dental care?: No Was dental information given to patient?: Patient has dentist HPI HPI Comments History of Present Illness Details 69-year-old female with history of diverticulitis, hepatic steatosis, GERD, osteopenia, mood disorder, history of diverticulitis complicated by abscess presents to the office today for follow-up. She had developed a fever at home as well as fatigue, congestion, abdominal cramping along the lower abdomen, bloating. However the cramping as well as thin stool has been going on for about 3-4 months. She did have a very small amount of bright blood per rectum last week that resolved. She has been taking a probiotic but not eating much fiber. She still continues drinking 2 beers on the week days and 4 beers daily on the weekends. She presented to the ED out of concern for possible diverticulitis but instead was found positive for COVID-19. She was diagnosed about 8 days ago. She does still feel fatigued and congested but otherwise is feeling much better. She does follow with Dr. Lake for her IBS but has not mentioned these GI symptoms to him. She does continue with significant bloating. Reports stools occasionally hard like constipation but then will have some watery stool. There is some urgency that typically resolves after a bowel movement. She does have some gas as well. Hx mastectomy with deflation. Requesting surgery referral ( years ago followed at [facility]). Follows with Dr. Raza for breast cancer surveillance ROS: General: No fevers, malaise, unintentional weight loss Cardiovascular: No chest pain, palpitations, or leg edema Respiratory: No shortness of breath, wheezing, cough GI: see hpi Neuro: No headaches, weakness, paresthesias Skin: No rashes or lesions EXAM: Constitutional - Awake and Alert, No apparent distress Eyes - PERRL Cardiovascular - S1S2, RRR, No edema Respiratory - Normal lung expansion, Normal respiratory effort, No respiratory distress, CTA bilaterally Abd - softly distended, nontender to palpation, BS x4, no guarding or rebound Extremities - no calf tenderness bilaterally, no swelling Skin - Warm/Dry Neurological - Alert & oriented x3 Psychological - Appropriate affect [facility] Medical History (Updated 04/17/25 @ 09:24 by ROB Topete) IBS (irritable bowel syndrome) Colonic diverticular abscess Umbilical hernia History of left breast cancer (~1992) Nicotine dependence, cigarettes, uncomplicated Chronic bronchitis Chronic cough Chronic allergic rhinitis Osteopenia (~2016) GERD (gastroesophageal reflux disease) Hepatic steatosis Diverticulitis Loco's esophagus Basal cell carcinoma Depression Surgical History History of esophagogastroduodenoscopy (EGD) History of colonoscopy (~11/09/23) History of wisdom tooth extraction History of rotator cuff surgery History of left mastectomy (~2003) History of bilateral breast implants History of back surgery History of bladder surgery History of hysterectomy (~1997) History of lumpectomy of left breast (~1992) Family History Paternal Grandmother Breast cancer Social History Household Members: Children Housing: House Do you presently have visiting nurse or other home services: No Alcohol intake: current Alcohol intake frequency: 0-2 drinks per day Patient Tobacco Use Status: Former Tobacco user Tobacco use type: Cigarette Cigarette Packs Per Day: 0.75 Cigarettes Per Day: 15 Years Smoked: 40 e-Cigarette/Vaping Use: Never Used Second Hand Smoke Exposure: No service: No Current occupational status: employed 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 How often do you have a drink containing alcohol?: 4 or more times a week 2. How many drinks containing alcohol do you have on a typical day when you are drinking?: 1 or 2 3. How often do you have six or more drinks on one occasion?: Never Total Score: 4 KWASI-7 AMB Questionnaire KWASI-7 Date KWASI - 7 assessed: 12/07/24 Source: Developed by Drs. Francisco Hammonds, Nadine Beal, Harsha Hernandez and colleagues, with an educational stefanie from [employer]. Physical exam (Primary Care) Vital Signs: Last Vital Signs Temp 97.7 F 04/17/25 09:02 Pulse 96 04/17/25 09:02 Resp 16 04/17/25 09:02 BP 130/84 04/17/25 09:02 Pulse Ox 96 04/17/25 09:02 Oxygen Delivery Method Room Air 04/17/25 09:02 BMI result Body Mass Index 28.0 Tobacco/Smoking Status: Tobacco use Status Tobacco use date assessed 08/30/24 04/17/25 09:07 Patient Tobacco Use Status Former Tobacco user 04/17/25 09:07 Tobacco use type Cigarette 04/17/25 09:07 e-Cigarette/Vaping Use Never Used 04/17/25 09:07 Thrive Assessment: Date of Thrive Assessment Date Thrive assessed 12/07/24 04/17/25 09:07 Coding Level of Care Code Est Pt Level 4 (80002) Complex visit Add On G2211 Diagnoses COVID-19 U07.1 IBS (irritable bowel syndrome) K58.9 History of left breast cancer Z85.3 Assessment & Plan Assessment & Plan (1) COVID-19: Code(s): U07.1 - COVID-19 Category: Medical Plan: Resolving. NO longer febrile. Continue with increased hydration, rest, cough syrup/decongestants as needed (2) IBS (irritable bowel syndrome): Code(s): K58.9 - Irritable bowel syndrome, unspecified Category: Medical Plan: Recommend sucralfate for abdominal distention. Advised to increase fiber in diet and can continue probiotic. Can also add fiber supplement. If primarily constipation can add bowel regimen. 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 Referred to general surgery at her request. She will continue following Dr. Raza for surveillance Plan Follow-up as scheduled. Labs as below Orders: Orders Basic Metabolic Panel 04/17/25 K58.9 - Irritable bowel syndrome, unspecified, R53.83 - Other fatigue, U07.1 - COVID-19 Vitamin B12 04/17/25 K58.9 - Irritable bowel syndrome, unspecified, R53.83 - Other fatigue, U07.1 - COVID-19 IRON PROFILE 04/17/25 K58.9 - Irritable bowel syndrome, unspecified, R53.83 - Other fatigue, U07.1 - COVID-19 Erythrocyte Sedimentation Rate 04/17/25 K58.9 - Irritable bowel syndrome, unspecified, R53.83 - Other fatigue, U07.1 - COVID-19 C Reactive Protein 04/17/25 K58.9 - Irritable bowel syndrome, unspecified, R53.83 - Other fatigue, U07.1 - COVID-19 Vitamin D 25-OH Total 04/17/25 K58.9 - Irritable bowel syndrome, unspecified, R53.83 - Other fatigue, U07.1 - COVID-19 TSH reflex Free T4 04/17/25 K58.9 - Irritable bowel syndrome, unspecified, R53.83 - Other fatigue, U07.1 - COVID-19 Vitamin B6 04/17/25 K58.9 - Irritable bowel syndrome, unspecified, R53.83 - Other fatigue, U07.1 - COVID-19 Referrals Breast Surgery Referral K58.9 - Irritable bowel syndrome, unspecified, N64.89 - Other specified disorders of breast, R53.83 - Other fatigue, U07.1 - COVID-19, Z90.10 - Acquired absence of unspecified breast and nipple Medications: New sucralfate 1 g PO QIDACHS 60 tabs 0RF Changed From montelukast 10 mg PO BEDTIME PRN J45.909 - Unspecified asthma, uncomplicated To montelukast 10 mg PO BEDTIME 90 tabs 1RF J45.909 - Unspecified asthma, uncomplicated
[2025-04-17 09:02] VITALS: BP 130/84; PULSE 96; RESP 16; TEMP 36.5; O2SAT 96; BMI 28.0
--- OUTSIDE RECORDS SUMMARY | 2025-04-17 09:28 | XMS_ITS | Patient Health Record ---
Author Organization [facility] Address [address] [place] [address] Care Team Providers Care Flume Maker Name Role Phone BRANDIE LOGAN Primary Care Provider Rojelio Cooper Jr Unavailable Allergies Allergen (clinical drug ingredient) Drug/Non Drug Allergy documented on EMR Reaction Allergy Type Onset Date Status seasonal (uncoded) Unknown Allergy A ctive Results Component Value Reference Range Flag Notes Complete Blood Count no Diff Reviewed date:01/24/2025 07:56:21 AM Interpretation: Performing Lab:[facility], [address] [place] [phone] Notes/Report: White Blood Count 6.5 4.8-10.8 X10*3/uL [...] Panel Reviewed date:01/23/2025 07:44:17 AM Interpretation: Performing Lab:[facility], [address] [place] [phone] Notes/Report: Bilirubin Total 0.3 0.0-1.0 mg/dL N Bilirubin Direct 0.1 0.0-0.5 mg/dL N Aspartate Amino Transferase 35 5-31 U/L H Alanine Aminotransferase 53 0-31 U/L H Total Protein 6.9 6.5-8.0 g/dL N Albumin Level 4.3 3.5-5.0 g/dL N Alkaline Phosphatase 83 39-117 U/L N Blood Urea Nitrogen Reviewed date:01/24/2025 07:56:16 AM Interpretation: Performing Lab:[facility], [address] [place] [phone] Notes/Report: Blood Urea Nitrogen 15 9-16 mg/dL N Creatinine Reviewed date:01/24/2025 07:56:12 AM Interpretation: Performing Lab:[facility], [address] [place] [phone] Notes/Report: Creatinine 0.74 0.5-1.4 mg/dL N Estimated Glomerular Filt Rate > 60 Chronic Kidney Disease: Estimated GFR < 60 mL/min/1.73m2 Severe Kidney Disease: Estimated GFR < 15 mL/min/1.73m2 Lipase Reviewed date:01/24/2025 07:56:08 AM Interpretation: Performing Lab:[facility], [address] [place] [phone] Notes/Report: Lipase 29 8-78 U/L N CT abdomen pelvis w con Reviewed date:01/24/2025 07:55:58 AM Interpretation: Performing Lab: Notes/Report: [address] [address] [address] Scan Report Signed Patient: Sabine Marvin MR#: [id number] 315 : 1955 Acct:[id number] Age/Sex: 69 / F ADM Date: 01/22/25 Loc: HO.CT Attending Dr: Rojelio Lake MD Ordering Physician: Rojelio Lake MD Date of Service: 01/22/25 Procedure(s): CT abdomen pelvis w IV con Accession Number(s): [id number] cc: Rojelio Lake MD; Brandie Logan Report Number: [id number]: Total DLP = 526.00 mGy-cm Reason for [...] 01/22/25 1639 DD/ 1545 TD/TT: 01/22/25 1555 Office Admin: Reason For Referral No Information Medications Medication [...] Status Risk Notes Problem Colon cancer screening (057826205) Colon cancer screening (Z12.11) Active confirmed Problem Diverticulitis of colon (657296066) Diverticulitis of large intestine without perforation or abscess without bleeding (K57.32) Active confirmed Problem Periumbilical abdominal pain (085579084) Periumbilical abdominal pain (R10.33) Active confirmed Problem Loco's esophagus (774825285) 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) Active confirmed Problem Gas (70109460) Gas (R14.3) Active confirmed Problem Altered bowel function (29236568) Change in bowel function (R19.4) Active confirmed Problem Loco esophagus (584296826) Loco esophagus (K22.70) Active confirmed Problem Irritable bowel syndrome (49530309) Other irritable bowel syndrome (K58.8) Active confirmed Vital Signs Temperature 98.7 degrees Fahrenheit 11/08/2024 Blood pressure diastolic 01 mm Hg 11/08/2024 Height 64.5 in 11/08/2024 Blood pressure systolic 001 mm Hg 11/08/2024 Weight 160.6 lbs 11/08/2024 BMI 27.14 kg/m2 11/08/2024 Encounters Encounter Location Date Provider Diagnosis [facility] [address] [place] [phone] 11/08/2024 Rojelio Lake Jr Change in bowel function R19.4 and Gas R14.3 [facility] [address] [place] [phone] 11/26/2024 Rojelio Lake Jr Diverticulitis of large intestine without perforation or abscess without bleeding K57.32 [facility] [address] [place] [address] 12/20/2024 Rojelio Lake Jr [facility] [address] [place] [address] 01/24/2025 Rojelio Lake Jr [facility] [address] [place] [address] 01/25/2025 Rojelio Lake Jr Assessments Encounter Date [...] OF [place] [address] [place] [id number] SABINE MEADE Self - patient is the insured 3 [employer] ATTN CLAIMS [address] [place] [address] [id number] SABINE MEADE Self - patient is the [...]
== END 2025-04-17 09:38 | disposition home or self-care (01) ==
LOC: HO.HMCHD 08:55
PROVIDERS: PCP Physician Assistant; Visit Provider Physician Assistant
DX: U07.1 COVID-19 (principal); K58.9 Irritable bowel syndrome, unspecified; Z85.3 Personal history of malignant neoplasm of breast

== ENCOUNTER → 2025-04-17 08:54 | Outpatient (BNVA) | payer MEDICARE, SELFPAY | PROVIDERS: PCP Physician Assistant; Visit Provider Physician Assistant | DX: U07.1 COVID-19 (principal); K58.9 Irritable bowel syndrome, unspecified; R53.83 Other fatigue; Z85.3 Personal history of malignant neoplasm of breast | CPT/HCPCS: 36415; 80048; 82306; 82607; 83540; 84207; 84443; 85652; 86140; 99212 ==

== ENCOUNTER 2025-05-02 10:06 | Outpatient (REF) | payer MEDICARE, SELFPAY ==
[2025-05-03 07:18] LABS: Immunoglobulin A 314 mg/dL (70-320)
== END 2025-05-02 10:07 ==
LOC: HO.LAB 10:06
PROVIDERS: PCP Physician Assistant; Visit Provider Internal Medicine Gastroenterology
DX: R14.3 Flatulence (principal)
CPT/HCPCS: 36415; 82784; 86364